=== PATIENT | female | born 1955 | race Caucasian/White ===

== ENCOUNTER 2018-05-17 07:47 | Emergency (ER) | payer BC, SELFPAY ==
[2018-05-17 08:22] VITALS: BP 182/94; PULSE 65; RESP 20; TEMP 36.6; O2SAT 100; BMI 53.0
--- NOTE | 2018-05-17 08:37 | DI.RAD.S_ITS ---
PROCEDURE: XR CHEST 1V INDICATIONS: Chest Pain TECHNIQUE: One view of the chest was acquired. COMPARISON: [facility], , CHEST 1 VIEW, 03/04/2016, 19:05. FINDINGS: Surgical changes and devices: Left chest wall clips and partial cervical fixation plates. Lungs and pleura: No pleural effusions or pneumothorax. Mild increased pulmonary vascularity. Mediastinum: Mediastinal contours appear normal. Heart size is normal. Bones and chest wall: No suspicious bony lesions. Overlying soft tissues appear unremarkable. IMPRESSION: Mild edema. Dictated by: Olinda Ramirez M.D. on 05/17/2018 at 9:32 Approved by: Olinda Ramirez M.D. on 05/17/2018 at 9:34
--- NOTE | 2018-05-17 08:52 | ED.BACK ---
HPI - Back Pain/Injury General Chief Complaint: Extremity Problem,Nontraumatic Stated Complaint: achey shoulders Time Seen by Provider: 05/17/18 08:20 Source: patient and family Mode of arrival: ambulatory Limitations: no limitations History of Present Illness HPI Narrative: 63-year-old nonsmoking female presents with a chief complaint of sharp and stabbing pain between her shoulder blades in her back that started this morning at 2:30 a.m. when she awoke abruptly to answer phone. She states her pain is worse when she moves her left upper extremity and denies any radiation. She denies any cardiac equivalent such as dizziness, weakness or lightheadedness. She has no chest pain or shortness of breath. She denies any recent travel or history of blood clots. MD Complaint: back pain Onset (ago): hour(s) Duration: constant Similar Symptoms Previously: No Location: thoracic spine Severity: mild Quality: burning and sharp Radiation: none Relieving factors: none Exacerbating factors: movement Associated symptoms: denies other symptoms Related Data Home Medications Medication Instructions Recorded Confirmed [ESTRAGEN] #0 05/21/16 Previous Rx's Medication Instructions Recorded hydrocodone-acetaminophen [[place]] 1 tab PO Q6HP PRN #10 tab 03/04/16 HYDROCORTISONE (Hydrocortisone) 1 guillermo TP BID #28.4 gm 05/21/16 Allergies Allergy/AdvReac Type Severity Reaction Status Date / Time codeine [CODEINE] Allergy Unknown Hives Verified 05/17/18 08:28 ketorolac [From TORADOL] Allergy Unknown Nausea Verified 05/17/18 08:28 Review of Systems Review of Systems All systems reviewed & are unremarkable except as noted in HPI and below Constitutional Denies chills, Denies fever(s), Denies lethargy and Denies weakness Eyes Denies change in vision, Denies eye discharge, Denies irritation and Denies loss of vision ENT Ears, Nose, Mouth, and Throat: Denies change in voice, Denies neck pain and Denies sore throat Cardiovascular Denies chest pain, Denies irregular heart rhythm, Denies lightheadedness, Denies palpitations, Denies dyspnea, Denies dyspnea on exertion and Denies orthopnea Respiratory Denies cough, Denies dyspnea, Denies dyspnea on exertion and Denies wheezing Gastrointestinal Gastrointestinal: Denies abdominal pain, Denies change in bowel habits, Denies diarrhea, Denies nausea and Denies vomiting Genitourinary Denies hematuria, Denies flank pain, Denies urinary incontinence and Denies urinary urgency Musculoskeletal Reports back pain and Denies neck pain Integumentary/Breasts Denies pruritus, Denies erythema, Denies rash and Denies wounds Neurologic Denies confusion, Denies loss of vision and Denies weakness Psychiatric Denies anxiety, Denies confusion, Denies depression, Denies homicidal ideation and Denies suicidal ideation Endocrine Denies palpitations Hematologic/Lymphatic Denies easy bruising Allergic/Immunologic Denies wheezing [facility] Social History Smoking Status: Current every day smoker Exam Narrative Exam Narrative: GENERAL: This is a well-nourished, well-developed patient, in mild distress. HEAD: Atraumatic. Normocephalic. No temporal or scalp tenderness. EYES: Pupils equal round and reactive. Extraocular motions intact. No scleral icterus. No injection or drainage. ENT: Nose without bleeding, purulent drainage or septal hematoma. Throat without erythema, tonsillar hypertrophy or exudate. Uvula midline. Airway patent. NECK: Trachea midline. No JVD or lymphadenopathy. Supple, nontender, no meningeal signs. CARDIOVASCULAR: Regular rate and rhythm without murmurs, gallops, or rubs. RESPIRATORY: Clear to auscultation. Breath sounds equal bilaterally. No wheezes, rales, or rhonchi. GASTROINTESTINAL: Abdomen soft, non-tender, nondistended. No hepato-splenomegaly, or palpable masses. No guarding. EXTREMITIES: No clubbing, cyanosis, or edema. No joint tenderness, effusion, or edema noted. BACK: Tenderness to the paraspinals just left to mid thoracic spine and medial to scapula. This pain is reproducible to palpation and motion of the left upper extremity. This is the pain that brought the patient in NEURO: AOx3. SKIN: No rash or erythema. Initial Vital Signs Initial Vital Signs: Vital Signs Temperature 97.8 F 05/17/18 08:22 Pulse Rate 65 05/17/18 08:22 Respiratory Rate 20 05/17/18 08:22 Blood Pressure 182/94 H 05/17/18 08:22 Pulse Oximetry 100 05/17/18 08:22 Course Orders Ordered: Discontinued Medications Aspirin (Aspirin Chew) 324 mg PO NOW ONE Stop: 05/17/18 08:37 Last Admin: 05/17/18 09:11 Dose: 324 mg Sodium Chloride (Normal Saline 0.9%) 1,000 mls @ 150 mls/hr IV CONT CLARISA Last Infusion: 05/17/18 10:24 Dose: 0 mls/hr Admin: 05/17/18 09:12 Dose: 150 mls/hr Vital Signs - 8 hr 05/17/18 08:22 Temperature 97.8 F Pulse Rate 65 Respiratory Rate 20 Blood Pressure 182/94 H Pulse Oximetry 100 MDM - Back Pain/Injury Medical Records Attestation: I reviewed the patient's medical records. Lab Data Attestation: I reviewed the patient's lab results. Result diagrams: 05/17/18 08:58 05/17/18 08:58 Lab Results 05/17/18 05/17/18 Range/Units 08:58 08:58 WBC 5.0 (4.5-11.0) X10^3/uL RBC 4.54 (4.0-5.2) X10^6/uL Hgb 13.4 (12.0-16.0) g/dL Hct 40.0 (36-46) % MCV 88.1 (80-100) fL MCH 29.5 (26-34) PG MCHC 33.5 (30-36) % RDW 13.7 (11.6-14.8) % Plt Count 309 (150-400) X10^3/uL Neut % (Auto) 66.4 (50-75) % Lymph % (Auto) 22.7 L (25-40) % [place] % (Auto) 8.1 (3-14) % Eos % (Auto) 2.4 (2-4) % Baso % (Auto) 0.4 (0-2) % Neut # (Auto) 3300 (5776-5032) /uL Sodium 142 (137-145) mmol/L Potassium 3.7 (3.4-5.1) mmol/L Chloride 103 (98-107) mmol/L Carbon Dioxide 26 (22-32) mmol/L BUN 12 (7-17) mg/dL Creatinine 0.60 (0.52-1.04) mg/dL Estimated GFR > 60.0 (>60) mL/min BUN/Creatinine Ratio 20.0 (6-22) Glucose 96 (80-110) mg/dL Calcium 9.6 (8.4-10.2) mg/dL Total Bilirubin 0.4 (0.2-1.3) mg/dL AST 34 (14-36) IU/L ALT 59 H (9-52) IU/L Alkaline Phosphatase 134 H (38-126) U/L Total Creatine Kinase 86 (30-135) U/L CK-MB (CK-2) TNP CK-MB (CK-2) Rel Index TNP Troponin I < 0.012 (0.01-0.034) ng/mL Total Protein 7.7 (6.3-8.2) g/dL Albumin 4.6 (3.5-5.0) g/dL Globulin 3.1 (1.7-4.1) g/dL Albumin/Globulin Ratio 1.5 (1.0-2.8) Lipase 162 (23-300) U/L Imaging Data Chest x-ray: Radiologist's impression: [address] [address] XRay Report Signed Patient: José Miguel Tierney DMR#: [id number] : 5Acct:[id number] Age/Sex: 63 / FDate of Service: 05/17/18 Loc: ED Accession Number: [id number] Procedure: XR chest 1V Ordering Provider: David Ambrose D.O. PROCEDURE: XR CHEST 1V INDICATIONS: Chest Pain TECHNIQUE: One view of the chest was acquired. COMPARISON: [facility], CHEST 1 VIEW, 03/04/2016, 19:05. FINDINGS: Surgical changes and devices: Left chest wall clips and partial cervical fixation plates. Lungs and pleura: No pleural effusions or pneumothorax. Mild increased pulmonary vascularity. Mediastinum: Mediastinal contours appear normal. Heart size is normal. Bones and chest wall: No suspicious bony lesions. Overlying soft tissues appear unremarkable. IMPRESSION: Mild edema. Dictated by: Olinda Ramirez M.D. on 05/17/2018 at 9:32 Approved by: Olinda Ramirez M.D. on 05/17/2018 at 9:34 ECG Data Attestation: I personally reviewed and interpreted this ECG as follows: Prior ECG tracings: not available for review Interpretation: EKG is normal sinus rhythm and free of any signs of ischemia or ectopy. Discharge Plan Departure Patient Disposition: Home Clinical Impression: Acute bilateral thoracic back pain Discharge Date/Time: 05/17/18 10:35 Interventions: ED Discharge Assessment Last Done: 05/17/18 10:30 Instructions: DI for Thoracic Back Pain Activity Restrictions/Additional Instructions: *You have been diagnosed with [ acute thoracic back strain ] *What to do: *Take medications as directed *Follow up with your primary care provider in 2-3 days, call for an appointment. Let them know you were seen in the Emergency Department and that we ask that you be seen in follow up *Return to ER if you should have any new, worsening or concerning symptoms Prescriptions: No Action hydrocodone-acetaminophen [[place]] 5 MG/325 MG tablet 1 tab PO Q6HP PRNQty: 10 RF: 0 [ESTRAGEN] Qty: 0 RF: 0 HYDROCORTISONE (Hydrocortisone) 1 guillermo TP BID Qty: 28.4 RF: 0 Referrals: Patria Aiken DO [Primary Care Provider] -
[2018-05-17 09:07] LABS: Add Manual Diff / Slide Review NO; Basophils Percent Auto 0.4 % (0-2); Eosinophils Percent Auto 2.4 % (2-4); Hemoglobin 13.4 g/dL (12.0-16.0); Lymphocytes Percent Auto 22.7 % (25-40); Mean Corpuscular HGB Conc 33.5 % (30-36); Mean Corpuscular Hemoglobin 29.5 PG (26-34); Mean Corpuscular Volume 88.1 fL (80-100); Monocytes Percent Auto 8.1 % (3-14); Neutrophils Absolute Auto 3300 /uL (3000-5900); Neutrophils Percent Auto 66.4 % (50-75); Platelet Count 309 X10^3/uL (150-400); Red Blood Cell Count 4.54 X10^6/uL (4.0-5.2); Red Cell Distribution Width 13.7 % (11.6-14.8)
[2018-05-17] MEDS: ASPIRIN 81 MG TAB 324 MG PO (09:11)
[2018-05-17] MEDS: SODIUM CHLORIDE 0.9% 1,000 ML 150 ML IV (09:12)
[2018-05-17 09:19] LABS: Alanine Aminotransferase 59 IU/L (9-52); Albumin 4.6 g/dL (3.5-5.0); Albumin Globulin Ratio 1.5 (1.0-2.8); Alkaline Phosphatase 134 U/L (38-126); Aspartate Aminotransferase 34 IU/L (14-36); Bilirubin Total 0.4 mg/dL (0.2-1.3); Blood Urea Nitrogen 12 mg/dL (7-17); Calcium 9.6 mg/dL (8.4-10.2); Carbon Dioxide 26 mmol/L (22-32); Chloride 103 mmol/L (98-107); Creatine Kinase 86 U/L (30-135); Estimated Glomerular Filt Rate > 60.0 mL/min (>60); Globulin 3.1 g/dL (1.7-4.1); Glucose 96 mg/dL (80-110); HEMOLYSIS < 15 (0-50); Lipase 162 U/L (23-300); Potassium 3.7 mmol/L (3.4-5.1); Sodium 142 mmol/L (137-145); Total Protein 7.7 g/dL (6.3-8.2)
--- NOTE | 2018-05-17 09:28 | ED_ITS ---
HPI - Back Pain/Injury General Chief Complaint: Extremity Problem,Nontraumatic Stated Complaint: achey shoulders Time Seen by Provider: 05/17/18 08:20 Source: patient and family Mode of arrival: ambulatory Limitations: no limitations History of Present Illness HPI Narrative: 63-year-old nonsmoking female presents with a chief complaint of sharp and stabbing pain between her shoulder blades in her back that started this morning at 2:30 a.m. when she awoke abruptly to answer phone. She states her pain is worse when she moves her left upper extremity and denies any radiation. She denies any cardiac equivalent such as dizziness, weakness or lightheadedness. She has no chest pain or shortness of breath. She denies any recent travel or history of blood clots. MD Complaint: back pain Onset (ago): hour(s) Duration: constant Similar Symptoms Previously: No Location: thoracic spine Severity: mild Quality: burning and sharp Radiation: none Relieving factors: none Exacerbating factors: movement Associated symptoms: denies other symptoms Related Data Home Medications Medication Instructions Recorded Confirmed [ESTRAGEN] #0 05/21/16 Previous Rx's Medication Instructions Recorded hydrocodone-acetaminophen [[place]] 1 tab PO Q6HP PRN #10 tab 03/04/16 HYDROCORTISONE (Hydrocortisone) 1 guillermo TP BID #28.4 gm 05/21/16 Allergies Allergy/AdvReac Type Severity Reaction Status Date / Time codeine [CODEINE] Allergy Unknown Hives Verified 05/17/18 08:28 ketorolac [From TORADOL] Allergy Unknown Nausea Verified 05/17/18 08:28 Review of Systems Review of Systems All systems reviewed & are unremarkable except as noted in HPI and below Constitutional Denies chills, Denies fever(s), Denies lethargy and Denies weakness Eyes Denies change in vision, Denies eye discharge, Denies irritation and Denies loss of vision ENT Ears, Nose, Mouth, and Throat: Denies change in voice, Denies neck pain and Denies sore throat Cardiovascular Denies chest pain, Denies irregular heart rhythm, Denies lightheadedness, Denies palpitations, Denies dyspnea, Denies dyspnea on exertion and Denies orthopnea Respiratory Denies cough, Denies dyspnea, Denies dyspnea on exertion and Denies wheezing Gastrointestinal Gastrointestinal: Denies abdominal pain, Denies change in bowel habits, Denies diarrhea, Denies nausea and Denies vomiting Genitourinary Denies hematuria, Denies flank pain, Denies urinary incontinence and Denies urinary urgency Musculoskeletal Reports back pain and Denies neck pain Integumentary/Breasts Denies pruritus, Denies erythema, Denies rash and Denies wounds Neurologic Denies confusion, Denies loss of vision and Denies weakness Psychiatric Denies anxiety, Denies confusion, Denies depression, Denies homicidal ideation and Denies suicidal ideation Endocrine Denies palpitations Hematologic/Lymphatic Denies easy bruising Allergic/Immunologic Denies wheezing [facility] Social History Smoking Status: Current every day smoker Exam Narrative Exam Narrative: GENERAL: This is a well-nourished, well-developed patient, in mild distress. HEAD: Atraumatic. Normocephalic. No temporal or scalp tenderness. EYES: Pupils equal round and reactive. Extraocular motions intact. No scleral icterus. No injection or drainage. ENT: Nose without bleeding, purulent drainage or septal hematoma. Throat without erythema, tonsillar hypertrophy or exudate. Uvula midline. Airway patent. NECK: Trachea midline. No JVD or lymphadenopathy. Supple, nontender, no meningeal signs. CARDIOVASCULAR: Regular rate and rhythm without murmurs, gallops, or rubs. RESPIRATORY: Clear to auscultation. Breath sounds equal bilaterally. No wheezes , rales, or rhonchi. GASTROINTESTINAL: Abdomen soft, non-tender, nondistended. No hepato-splenomegaly , or palpable masses. No guarding. EXTREMITIES: No clubbing, cyanosis, or edema. No joint tenderness, effusion, or edema noted. BACK: Tenderness to the paraspinals just left to mid thoracic spine and medial to scapula. This pain is reproducible to palpation and motion of the left upper extremity. This is the pain that brought the patient in NEURO: AOx3. SKIN: No rash or erythema. Initial Vital Signs Initial Vital Signs: Vital Signs Temperature 97.8 F 05/17/18 08:22 Pulse Rate 65 05/17/18 08:22 Respiratory Rate 20 05/17/18 08:22 Blood Pressure 182/94 H 05/17/18 08:22 Pulse Oximetry 100 05/17/18 08:22 Course Orders Ordered: Discontinued Medications Aspirin (Aspirin Chew) 324 mg PO NOW ONE Stop: 05/17/18 08:37 Last Admin: 05/17/18 09:11 Dose: 324 mg Sodium Chloride (Normal Saline 0.9%) 1,000 mls @ 150 mls/hr IV CONT CLARISA Last Infusion: 05/17/18 10:24 Dose: 0 mls/hr Admin: 05/17/18 09:12 Dose: 150 mls/hr Vital Signs - 8 hr 05/17/18 08:22 Temperature 97.8 F Pulse Rate 65 Respiratory Rate 20 Blood Pressure 182/94 H Pulse Oximetry 100 MDM - Back Pain/Injury Medical Records Attestation: I reviewed the patient's medical records. Lab Data Attestation: I reviewed the patient's lab results. Result diagrams: 05/17/18 08:58 05/17/18 08:58 Lab Results 05/17/18 05/17/18 Range/Units 08:58 08:58 WBC 5.0 (4.5-11.0) X10^3/uL RBC 4.54 (4.0-5.2) X10^6/uL Hgb 13.4 (12.0-16.0) g/dL Hct 40.0 (36-46) % MCV 88.1 (80-100) fL MCH 29.5 (26-34) PG MCHC 33.5 (30-36) % RDW 13.7 (11.6-14.8) % Plt Count 309 (150-400) X10^3/uL Neut % (Auto) 66.4 (50-75) % Lymph % (Auto) 22.7 L (25-40) % [place] % (Auto) 8.1 (3-14) % Eos % (Auto) 2.4 (2-4) % Baso % (Auto) 0.4 (0-2) % Neut # (Auto) 3300 (5638-1794) /uL Sodium 142 (137-145) mmol/L Potassium 3.7 (3.4-5.1) mmol/L Chloride 103 (98-107) mmol/L Carbon Dioxide 26 (22-32) mmol/L BUN 12 (7-17) mg/dL Creatinine 0.60 (0.52-1.04) mg/dL Estimated GFR > 60.0 (>60) mL/min BUN/Creatinine Ratio 20.0 (6-22) Glucose 96 (80-110) mg/dL Calcium 9.6 (8.4-10.2) mg/dL Total Bilirubin 0.4 (0.2-1.3) mg/dL AST 34 (14-36) IU/L ALT 59 H (9-52) IU/L Alkaline Phosphatase 134 H (38-126) U/L Total Creatine Kinase 86 (30-135) U/L CK-MB (CK-2) TNP CK-MB (CK-2) Rel Index TNP Troponin I < 0.012 (0.01-0.034) ng/mL Total Protein 7.7 (6.3-8.2) g/dL Albumin 4.6 (3.5-5.0) g/dL Globulin 3.1 (1.7-4.1) g/dL Albumin/Globulin Ratio 1.5 (1.0-2.8) Lipase 162 (23-300) U/L Imaging Data Chest x-ray: Radiologist's impression: [address] [address] XRay Report Signed Patient: José Miguel Tierney DMR#: [id number] : 5Acct:[id number] Age/Sex: 63 / FDate of Service: 05/17/18 Loc: ED Accession Number: [id number] Procedure: XR chest 1V Ordering Provider: David Ambrose D.O. PROCEDURE: XR CHEST 1V INDICATIONS: Chest Pain TECHNIQUE: One view of the chest was acquired. COMPARISON: [facility], CHEST 1 VIEW, 03/04/2016, 19:05. FINDINGS: Surgical changes and devices: Left chest wall clips and partial cervical fixation plates. Lungs and pleura: No pleural effusions or pneumothorax. Mild increased pulmonary vascularity. Mediastinum: Mediastinal contours appear normal. Heart size is normal. Bones and chest wall: No suspicious bony lesions. Overlying soft tissues appear unremarkable. IMPRESSION: Mild edema. Dictated by: Olinda Ramirez M.D. on 05/17/2018 at 9:32 Approved by: Olinda Ramirez M.D. on 05/17/2018 at 9:34 ECG Data Attestation: I personally reviewed and interpreted this ECG as follows: Prior ECG tracings: not available for review Interpretation: EKG is normal sinus rhythm and free of any signs of ischemia or ectopy. Discharge Plan Departure Patient Disposition: Home Clinical Impression: Acute bilateral thoracic back pain Discharge Date/Time: 05/17/18 10:35 Interventions: ED Discharge Assessment Last Done: 05/17/18 10:30 Instructions: DI for Thoracic Back Pain Activity Restrictions/Additional Instructions: *You have been diagnosed with [ acute thoracic back strain ] *What to do: *Take medications as directed *Follow up with your primary care provider in 2-3 days, call for an appointment. Let them know you were seen in the Emergency Department and that we ask that you be seen in follow up *Return to ER if you should have any new, worsening or concerning symptoms Prescriptions: No Action hydrocodone-acetaminophen [[place]] 5 MG/325 MG tablet 1 tab PO Q6HP PRNQty: 10 RF: 0 [ESTRAGEN] Qty: 0 RF: 0 HYDROCORTISONE (Hydrocortisone) 1 guillermo TP BID Qty: 28.4 RF: 0 Referrals: Patria Aiken DO [Primary Care Provider] -
[2018-05-17 09:32] LABS: Troponin I < 0.012 ng/mL (0.01-0.034)
[2018-05-17 10:30] VITALS: BP 182/89; PULSE 75; RESP 20; TEMP 36.1; O2SAT 98
== END 2018-05-17 10:35 | disposition home or self-care (01) ==
PROVIDERS: Emergency Provider Emergency Medicine; PCP Family Medicine
DX: M54.6 Pain in thoracic spine (principal)
CPT/HCPCS: 36591; 71045; 80053; 82550; 83690; 84484; 85025; 93005; 93041; 96360; 99283; 99285

== ENCOUNTER → 2018-07-24 08:40 | Outpatient (CLI) | payer BC, SELFPAY ==
--- NOTE | 2018-07-24 | DI.NM.S_ITS ---
PROCEDURE: NM MICHAEL PERF SPECT R&S PHARM Rest and pharmacological stress myocardial perfusion SPECT with gated imaging and ejection fraction RADIOPHARMACEUTICAL: 26.7 mCi Tc-99m tetrafosmin IV at rest and 26.2 mCi Tc-99m tetrafosmin IV at peak effect of pharmacological stress. [id number] was performed. INDICATIONS: CHEST PAIN TECHNIQUE: Radiopharmaceutical was injected at peak stress test, and also at rest. SPECT images were obtained. SPECT myocardial perfusion images were displayed in short axis, horizontal long axis, and vertical long axis views. Gated images were reviewed using [employer] software. COMPARISON: None. CARDIAC STRESS: A pharmacologic stress test was performed under the supervision of an attending staff, using an infusion of lexiscan 0.4mg IV X1. Hemodynamic data: There is normal heart rate response to pharmacologic stress. Hypertension present during the study with BP 180/106mmHg at rest. Symptoms: The patient denied anginal chest pain. Aminophylline: none EKG: No diagnostic changes of ischemia; no ectopy. FINDINGS: Raw data: There is good myocardial uptake of radiotracer. No significant motion artifacts. Qvxp-uw-evbep ratio is 0.36 (normal is less than 0.38 for tetrafosmin tracer). Left ventricle function: Gated images demonstrate normal left ventricular wall thickening. No segmental wall motion abnormalities. No transient ischemic dilation; TID is 0.77 (normal less than 1.3). Left ventricle resting end diastolic volume is 99 mL. Left ventricle stress ejection fraction is 86%; normal range is above 45%. Myocardial perfusion: There is moderately severe fixed defect in the anterior wall that improves significantly with prone imaging suggesting breast attenuation artifact but prior non-transmural infarction can't be definitely excluded. No ischemia present. IMPRESSION: Low risk, probably normal pharmaceutical nuclear stress test. Hypertension present during the study. 1) Probably normal nuclear perfusion images. There is moderately severe fixed defect in the anterior wall that improves significantly with prone imaging suggesting breast attenuation artifact but prior non-transmural infarction can't be definitely excluded. No ischemia present. 2) Normal left ventricular size, wall motion, and systolic function (post stress EF 86%). 3) No ECG evidence of ischemia. 4) No angina during the study. 5) Hypertension present throughout the study (BP 180/106mmHg at rest). 6) No prior nuclear stress test available for comparison. Dictated by: Dionne Aguirre MD on 07/25/2018 at 17:18 Approved by: Dionne Aguirre MD on 07/25/2018 at 17:23
--- NOTE | 2018-07-24 09:35 | P.PCN_ITS ---
Cardiac Stress Test Report Referral & Results Date Patient Seen: 07/24/18 Requesting provider: Dieter Amaro Indication: Chest pain Rest ECG: Unremarkable Procedure Note: After both written and verbal informed consent the patient had an IV started by the diagnostic imaging RN and then was hooked up to the treadmill monitoring system. The patient was placed on the treadmill at 1 mile an hour with no elevation and was then injected with the Tiffanie scan material. The Cardiolite was then immediately administered. The patient spent an additional 2-3 minutes on the treadmill before being returned to the [facility] in the supine position. The patient had a normal response to all infused materials. Patient was hypertensive throughout both before the test was started as well as afterwards Patient did reach heart rate target with minimal exercise described above. No ECG changes were identified any time Impression: See perfusion imaging for further details Hypertension Please note: Actual ECG tracings can be found in the PACS system.
== END ==
PROVIDERS: PCP Family Medicine; Visit Provider Internal Medicine Cardiovascular Disease
DX: R07.9 Chest pain, unspecified (principal); I10 Essential (primary) hypertension
CPT/HCPCS: 78452; 93016; 93017; 93018; A9502; J2785

== ENCOUNTER 2018-10-27 01:38 | Inpatient (IN) | payer BC, SELFPAY ==
[2018-10-27] VITALS (22 sets, daily range): BP systolic 127–198; BP diastolic 74–104; PULSE 59–89; RESP 13–22; TEMP 36–36.9; O2SAT 92–100; BMI 38.4
--- NOTE | 2018-10-27 01:45 | ED.ABDPAIN ---
HPI - Abdominal Pain General Chief Complaint: Abdominal Pain Stated Complaint: stomach ache/constipation/pain 04/17 Time Seen by Provider: 10/27/18 01:44 Source: patient Mode of arrival: ambulatory Limitations: no limitations History of Present Illness HPI narrative: Patient is a 63-year-old female here for evaluation of which he thinks is constipation. She states she was at her normal state of health last evening. Her last meal was yesterday afternoon. She states she did have a bowel movement that was normal for her. After she got off work she started to have abdominal pain. No vomiting. she did have another bowel movement after this that she states was somewhat looser than the 1st bowel movement however did not change any of her abdominal pain. she states she has had symptoms like this in the past where she received an enema that seemed to improve her symptoms that is why she thought she was constipated. Denies any urinary symptoms or vaginal bleeding. Has had a hysterectomy in the past but no other abdominal surgeries. She states she is drinking tea at 2200 hours when her symptoms started to worsen. Related Data Home Medications Medication Instructions Recorded Confirmed [ESTRAGEN] #0 05/21/16 Previous Rx's Medication Instructions Recorded hydrocodone-acetaminophen [[place]] 1 tab PO Q6HP PRN #10 tab 03/04/16 HYDROCORTISONE (Hydrocortisone) 1 guillermo TP BID #28.4 gm 05/21/16 Allergies Allergy/AdvReac Type Severity Reaction Status Date / Time codeine [CODEINE] Allergy Unknown Hives Verified 05/17/18 08:28 ketorolac [From TORADOL] Allergy Unknown Nausea Verified 05/17/18 08:28 Review of Systems Constitutional Denies fever(s) and Denies headache(s) ENT Ears, Nose, Mouth, and Throat: Denies headache(s) Cardiovascular Denies chest pain and Denies dyspnea Respiratory Denies dyspnea Gastrointestinal Gastrointestinal: Reports abdominal pain, Reports change in stool character, Reports cramping, Denies nausea and Denies vomiting Genitourinary Denies dysuria Musculoskeletal Denies myalgias and Denies arthralgias Integumentary/Breasts Denies rash Neurologic Denies headache(s) Hematologic/Lymphatic Denies easy bleeding and Denies easy bruising Allergic/Immunologic Denies urticaria REPLACED BY [facility] Medical History (Updated 10/27/18 @ 03:42 by Gadiel Biggs DO) H/O: hysterectomy (Acute) Healthy adult (Acute) Social History Smoking Status: Current every day smoker Social History Smoking Status: Current every day smoker Exam Initial Vital Signs Initial Vital Signs: Vital Signs Temperature 98.4 F 10/27/18 01:46 Pulse Rate 83 10/27/18 01:46 Respiratory Rate 16 10/27/18 01:46 Blood Pressure 198/95 H 10/27/18 01:46 Pulse Oximetry 100 10/27/18 01:46 Const General: cooperative, comfortable, well developed, well groomed and No acute distress Orientation: alert, awake and oriented x3 HENMT Head: normal to inspection and normocephalic Resp Effort & Inspection: normal respiratory effort Auscultation: clear to auscultation bilaterally Cardio Rate: regular rate Rhythm: regular rhythm Pulses: radial pulses present GI Inspection: non-distended Palpation: soft, No firm, No guarding and tender (Right-sided abdomen without rebound or guarding) Skin Lesions: no lesions Rashes: no rashes Neuro General: alert, awake and oriented x3 Cognition: normal cognition Speech: speech normal Extrem General: normal to inspection and capillary refill normal Psych Appearance: grossly normal and well kempt Scores GCS [place] coma scale eye opening: Spontaneous [place] coma scale verbal response: Orientated [place] coma scale motor response: Obey commands [place] coma scale total score: 15 Course Orders Ordered: ED Orders 10/27/18 01:54 CT abdomen pelvis w con Stat 10/27/18 02:00 Complete Blood Count AUTO DIFF Stat Comprehensive Metabolic Panel Stat Lactate (Lactic Acid) Stat Lipase Stat Discontinued Medications Sodium Chloride (Normal Saline 0.9%) 1,000 mls @ 1,000 mls/hr IV BOLUS ONE Stop: 10/27/18 02:53 Last Admin: 10/27/18 03:08 Dose: 1,000 mls/hr Vital Signs - 8 hr 10/27/18 01:46 10/27/18 03:25 Temperature 98.4 F Pulse Rate 83 88 Respiratory Rate 16 14 Blood Pressure 198/95 H Blood Pressure [Right Arm] 154/74 H Pulse Oximetry 100 92 MDM - Abdominal Pain Lab Data Attestation: I reviewed the patient's lab results. Result diagrams: 10/27/18 02:00 10/27/18 02:00 Lab Results 10/27/18 10/27/18 Range/Units 02:00 02:00 WBC 8.8 (4.5-11.0) X10^3/uL RBC 4.67 (4.0-5.2) X10^6/uL Hgb 13.6 (12.0-16.0) g/dL Hct 40.9 (36-46) % MCV 87.7 (80-100) fL MCH 29.2 (26-34) PG MCHC 33.3 (30-36) % RDW 13.5 (11.6-14.8) % Plt Count 347 (150-400) X10^3/uL Neut % (Auto) 76.4 H (50-75) % Lymph % (Auto) 15.5 L (25-40) % [place] % (Auto) 6.5 (3-14) % Eos % (Auto) 1.3 L (2-4) % Baso % (Auto) 0.3 (0-2) % Neut # (Auto) 6700 (7594-9278) /uL Lymph # (Auto) 1400 (2394-4490) /uL [place] # (Auto) 600 (0-900) /uL Eos # (Auto) 100 (0-450) /uL Baso # (Auto) 0 (0-100) /uL Sodium 142 (137-145) mmol/L Potassium 3.8 (3.4-5.1) mmol/L Chloride 105 (98-107) mmol/L Carbon Dioxide 25 (22-32) mmol/L BUN 13 (7-17) mg/dL Creatinine 0.70 (0.52-1.04) mg/dL Estimated GFR > 60.0 (>60) mL/min BUN/Creatinine Ratio 18.6 (6-22) Glucose 117 H (80-110) mg/dL Calcium 9.8 (8.4-10.2) mg/dL Total Bilirubin 0.2 (0.2-1.3) mg/dL AST 26 (14-36) IU/L ALT 37 (9-52) IU/L Alkaline Phosphatase 138 H (38-126) U/L Total Protein 8.2 (6.3-8.2) g/dL Albumin 4.9 (3.5-5.0) g/dL Globulin 3.3 (1.7-4.1) g/dL Albumin/Globulin Ratio 1.5 (1.0-2.8) Lipase 163 (23-300) U/L Imaging Data CT scan - abdomen: Radiologist's impression: High-grade mechanical small-bowel obstruction appears to be closed loop. Possible internal hernia. MDM Narrative Medical decision making narrative: Patient did have a relatively benign abdominal exam however was somewhat tender in the right abdomen. CT scan was obtained which resulted in what appears to be a small bowel obstruction. I discussed the case with Dr. sanabria with General surgery who will take the patient to the operating room. Discussed the CT scan findings with the patient and the possible need for surgery. Patient was NPO and has been NPO since 2200 hours lactate pending at time of admission. Discharge Plan Departure Patient Disposition: Admitted As Inpatient Clinical Impression: Small bowel obstruction
--- NOTE | 2018-10-27 01:54 | DI.CT.S_ITS ---
PROCEDURE: CT ABDOMEN PELVIS W CON INDICATIONS: Right-sided abdominal pain TECHNIQUE: After the administration of intravenous contrast, 5 mm thick sections acquired from the diaphragm to the symphysis. 5 mm coronal and sagittal reformats were acquired. For radiation dose reduction, the following was used: automated exposure control, adjustment of mA and/or kV according to patient size. COMPARISON: None. FINDINGS: Image quality: Excellent. ABDOMEN: Lung bases: Lung bases are clear. Heart size is normal. Solid organs: Liver is normal in size and enhancement. Gallbladder is unremarkable. Biliary system is non dilated. Pancreas enhances normally. Spleen is normal in size and enhancement. No adrenal nodules. Kidneys demonstrate normal size and enhancement, without hydronephrosis. Peritoneum and bowel: There is a distal small bowel obstruction which is concerning for a closed loop obstruction. There is fecalization of small bowel contents. Distal small bowel measures up to 4.3 cm. There is some bowel wall thickened present. No free air. Minimal ascites adjacent to the obstructed loops and in the pelvis. Nodes and vessels: No retroperitoneal or mesenteric adenopathy by size criteria. Aorta and inferior vena cava are normal in size. Miscellaneous: No ventral hernias. PELVIS: Genitourinary: Bladder wall thickness is normal. Uterus is surgically absent. Miscellaneous: No inguinal hernias or adenopathy. Bones: A benign-appearing cystic lesion of the right iliac crest is noted. Bilateral L5 pars defects with mild anterolisthesis of L5 on S1 and bilateral foraminal narrowing at L5-S1. No vertebral body compression fractures. IMPRESSION: 1. Closed-loop obstruction of the distal small bowel, with fecalization of small bowel contents and associated bowel wall thickening. 2. Bilateral L5 pars defects with mild anterolisthesis of L5 on S1. 3. Benign-appearing cystic lesion of the right iliac crest. Comment: Final report is concordant with preliminary interpretation of the Dictated by: Brian Duarte M.D. on 10/27/2018 at 8:20 Approved by: Brian Duarte M.D. on 10/27/2018 at 8:28
[2018-10-27 02:18] LABS: Add Manual Diff / Slide Review NO; Basophils Absolute Auto 0 /uL (0-100); Basophils Percent Auto 0.3 % (0-2); Eosinophils Absolute Auto 100 /uL (0-450); Eosinophils Percent Auto 1.3 % (2-4); Hematocrit 40.9 % (36-46); Hemoglobin 13.6 g/dL (12.0-16.0); Lymphocytes Absolute Auto 1400 /uL (1100-4500); Lymphocytes Percent Auto 15.5 % (25-40); Mean Corpuscular HGB Conc 33.3 % (30-36); Mean Corpuscular Hemoglobin 29.2 PG (26-34); Mean Corpuscular Volume 87.7 fL (80-100); Monocytes Absolute Auto 600 /uL (0-900); Monocytes Percent Auto 6.5 % (3-14); Neutrophils Absolute Auto 6700 /uL (1500-7000); Neutrophils Percent Auto 76.4 % (50-75); Platelet Count 347 X10^3/uL (150-400); Red Blood Cell Count 4.67 X10^6/uL (4.0-5.2); Red Cell Distribution Width 13.5 % (11.6-14.8); White Blood Cell Count 8.8 X10^3/uL (4.5-11.0)
[2018-10-27 02:24] LABS: Alanine Aminotransferase 37 IU/L (9-52); Albumin 4.9 g/dL (3.5-5.0); Albumin Globulin Ratio 1.5 (1.0-2.8); Alkaline Phosphatase 138 U/L (38-126); Aspartate Aminotransferase 26 IU/L (14-36); BUN Creatinine Ratio 18.6 (6-22); Bilirubin Total 0.2 mg/dL (0.2-1.3); Blood Urea Nitrogen 13 mg/dL (7-17); Calcium 9.8 mg/dL (8.4-10.2); Carbon Dioxide 25 mmol/L (22-32); Chloride 105 mmol/L (98-107); Estimated Glomerular Filt Rate > 60.0 mL/min (>60); Globulin 3.3 g/dL (1.7-4.1); Glucose 117 mg/dL (80-110); HEMOLYSIS < 15 (0-50); Lipase 163 U/L (23-300); Potassium 3.8 mmol/L (3.4-5.1); Sodium 142 mmol/L (137-145); Total Protein 8.2 g/dL (6.3-8.2)
[2018-10-27] MEDS: SODIUM CHLORIDE 0.9% 1,000 ML 1000 ML IV (03:08)
[2018-10-27 03:42] LABS: Lactate (Lactic Acid) 1.9 mmol/L (0.7-2.1)
--- NOTE | 2018-10-27 04:30 | PC.NURSE ---
report given to elkin caballero in surgery
--- NOTE | 2018-10-27 04:48 | PM.HP.1 ---
History of Present Illness Date Patient Seen: 10/27/18 Time Patient Seen: 04:18 Chief complaint: stomache ache/constipation/pain 04/17 Narrative: 63yo F with new onset R sided abd pain starting this evening. Had some nausea but primarily pain. This progressed over the evening despite an attempted enema which she had tried as she had previously been given this for a similar pain many years ago. Otherwise has not had similar pains or issues. Labs and vitals unremarkable in the ED but CT shows a closed loop SBO. Only abd surgery was a remote hysterectomy for benign disease. Her BP elevated to 190s/100s when I was in discussing the news and plan with her. On her request I spoke on the phone to her daughter, as well. Patient History Medical History H/O: hysterectomy (Acute) Healthy adult (Acute) Social History Smoking Status: Current every day smoker Family & Social History Tobacco & Substance use: Smoking Status Current every day smoker alcohol intake frequency 0-2 drinks per day Substance Use Type does not use Meds Home Medications Medication Instructions Recorded Confirmed Type hydrocodone-acetaminophen [[place]] 1 tab PO Q6HP PRN #10 tab 03/04/16 Rx HYDROCORTISONE (Hydrocortisone) 1 guillermo TP BID #28.4 gm 05/21/16 Rx [ESTRAGEN] #0 05/21/16 History Allergies Allergy/AdvReac Type Severity Reaction Status Date / Time codeine [CODEINE] Allergy Unknown Hives Verified 10/27/18 04:40 ketorolac [From TORADOL] Allergy Unknown Nausea Verified 10/27/18 04:40 Review of Systems Constitutional Constitutional: Reports as per HPI Exam Vital Signs (past 8 hours): - 10/27/18 01:46 10/27/18 03:25 10/27/18 04:45 Temperature 98.4 F Pulse Rate 83 88 88 Respiratory Rate 16 14 20 Blood Pressure 198/95 H 192/104 H Blood Pressure [Right Arm] 154/74 H Pulse Oximetry 100 92 96 Oxygen Delivery Method Room Air Narrative Exam Narrative: AAO, NAD, obese female EOMI, MMM, no scleral icterus unlabored RA soft, nd, mild ttp mid and right side MAEW visible skin dry and intact Objective Labs Result Diagrams: 10/27/18 02:00 10/27/18 02:00 Labs: Laboratory Results - last 24 hr 10/27/18 10/27/18 10/27/18 02:00 02:00 02:00 WBC 8.8 RBC 4.67 Hgb 13.6 Hct 40.9 MCV 87.7 MCH 29.2 MCHC 33.3 RDW 13.5 Plt Count 347 Neut % (Auto) 76.4 H Lymph % (Auto) 15.5 L [place] % (Auto) 6.5 Eos % (Auto) 1.3 L Baso % (Auto) 0.3 Neut # (Auto) 6700 Lymph # (Auto) 1400 [place] # (Auto) 600 Eos # (Auto) 100 Baso # (Auto) 0 Sodium 142 Potassium 3.8 Chloride 105 Carbon Dioxide 25 BUN 13 Creatinine 0.70 Estimated GFR > 60.0 BUN/Creatinine Ratio 18.6 Glucose 117 H Lactate 1.9 Calcium 9.8 Total Bilirubin 0.2 AST 26 ALT 37 Alkaline Phosphatase 138 H Total Protein 8.2 Albumin 4.9 Globulin 3.3 Albumin/Globulin Ratio 1.5 Lipase 163 Assessment & Plan Assessment & Plan narrative: - closed loop obstruction, will proceed emergently to the OR for ex lap and possible SBR --> all R/B/A discussed and pt wishes to proceed - admit after for pain control and diet advancement
--- NOTE | 2018-10-27 04:55 | P.HP_ITS ---
History of Present Illness Date Patient Seen: 10/27/18 Time Patient Seen: 04:18 Chief complaint: stomache ache/constipation/pain 04/17 Narrative: 63yo F with new onset R sided abd pain starting this evening. Had some nausea but primarily pain. This progressed over the evening despite an a ttempted enema which she had tried as she had previously been given this for a similar pain many years ago. Otherwise has not had similar pains or issues. Labs and vitals unremarkable in the ED but CT shows a closed loop SBO. Only abd surgery was a remote hysterectomy for benign disease. Her BP elevated to 190s/100s when I was in discussing the news and plan with her. On her request I spoke on the phone to her daughter, as well. Patient History Medical History H/O: hysterectomy (Acute) Healthy adult (Acute) Social History Smoking Status: Current every day smoker Family & Social History Tobacco & Substance use: Smoking Status Current every day smoker alcohol intake frequency 0-2 drinks per day Substance Use Type does not use Meds Home Medications Medication Instructions Recorded Confirmed Type hydrocodone-acetaminophen [[place]] 1 tab PO Q6HP PRN #10 tab 03/04/16 Rx HYDROCORTISONE (Hydrocortisone) 1 guillermo TP BID #28.4 gm 05/21/16 Rx [ESTRAGEN] #0 05/21/16 History Allergies Allergy/AdvReac Type Severity Reaction Status Date / Time codeine [CODEINE] Allergy Unknown Hives Verified 10/27/18 04:40 ketorolac [From TORADOL] Allergy Unknown Nausea Verified 10/27/18 04:40 Review of Systems Constitutional Constitutional: Reports as per HPI Exam Vital Signs (past 8 hours): - 10/27/18 01:46 10/27/18 03:25 10/27/18 04:45 Temperature 98.4 F Pulse Rate 83 88 88 Respiratory Rate 16 14 20 Blood Pressure 198/95 H 192/104 H Blood Pressure [Right Arm] 154/74 H Pulse Oximetry 100 92 96 Oxygen Delivery Method Room Air Narrative Exam Narrative: AAO, NAD, obese female EOMI, MMM, no scleral icterus unlabored RA soft, nd, mild ttp mid and right side MAEW visible skin dry and intact Objective Labs Result Diagrams: 10/27/18 02:00 10/27/18 02:00 Labs: Laboratory Results - last 24 hr 10/27/18 10/27/18 10/27/18 02:00 02:00 02:00 WBC 8.8 RBC 4.67 Hgb 13.6 Hct 40.9 MCV 87.7 MCH 29.2 MCHC 33.3 RDW 13.5 Plt Count 347 Neut % (Auto) 76.4 H Lymph % (Auto) 15.5 L [place] % (Auto) 6.5 Eos % (Auto) 1.3 L Baso % (Auto) 0.3 Neut # (Auto) 6700 Lymph # (Auto) 1400 [place] # (Auto) 600 Eos # (Auto) 100 Baso # (Auto) 0 Sodium 142 Potassium 3.8 Chloride 105 Carbon Dioxide 25 BUN 13 Creatinine 0.70 Estimated GFR > 60.0 BUN/Creatinine Ratio 18.6 Glucose 117 H Lactate 1.9 Calcium 9.8 Total Bilirubin 0.2 AST 26 ALT 37 Alkaline Phosphatase 138 H Total Protein 8.2 Albumin 4.9 Globulin 3.3 Albumin/Globulin Ratio 1.5 Lipase 163 Assessment & Plan Assessment & Plan narrative: - closed loop obstruction, will proceed emergently to the OR for ex lap and possible SBR --> all R/B/A discussed and pt wishes to proceed - admit after for pain control and diet advancement
[2018-10-27] MEDS: CEFAZOLIN 2 GM/100 ML FROZ.PIGGY IV (05:08)
--- NOTE | 2018-10-27 05:26 | SUR.OPER ---
Supine on padded OR bed, head on pillow, arms secured on padded arm boards at <90 degrees abduction, legs uncrossed, safety belt at thigh, tape over blanket over lower legs.
[2018-10-27] MEDS: LACTATED RINGERS 1,000 ML 42 ML IV (06:45)
[2018-10-27] MEDS: fentaNYL 100 MCG/2 ML INJ 50 MCG IV ×2 (07:02→07:13)
[2018-10-27] MEDS: HYDROMORPHONE 2 MG INJ 0.5 MG IV ×2 (07:07→07:16)
[2018-10-27] MEDS: ONDANSETRON 4 MG/2 ML INJ IV (07:12)
--- NOTE | 2018-10-27 07:44 | SUR.PHASEI ---
REPORT CALLED TO RIK HUSSEIN ON ACUTE CARE FLOOR. PT IN STABLE CONDITION, VSS. PT BEING TRANSFERRED TO ACUTE CARE FLOOR AT THIS TIME.
--- NOTE | 2018-10-27 07:54 | SUR.PHASEI ---
PT TRANSFERRED TO ACUTE CARE FLOOR IN STABLE CONDITION, VSS. BEDSIDE REPORT GIVEN TO RIK HUSSEIN. TRANSFERRED CARE OF PT TO RIK HUSSEIN AT THAT TIME.
[2018-10-27] MEDS: LACTATED RINGERS 1,000 ML 100 ML IV ×2 (08:27→18:46)
[2018-10-27] MEDS: ENOXAPARIN 40 MG/0.4 ML SYRINGE SUBCUT (10:16)
--- NOTE | 2018-10-27 11:06 | PC.NURSE ---
Addendum entered by Tana Carvalho R.N. 10/27/18 15:32: Pt has side effect to Ketorolac causing moderate to severe nausea and did not want to take. Dilaudid IV prn given at 1455 with good effect. Original Note: Addendum entered by Tana Carvalho R.N. 10/27/18 14:22: Update given by Dr. Cuellar around 1420, pt had approx 8 ice chips this shift, more alert now, able to hold a conversation with good historian with dates. Rates 6/10 pain to abd. Okay for pt to have small sips of water, broth, juice if tolerable by pt per Dr. Cuellar. Original Note: Addendum entered by Tana Carvalho R.N. 10/27/18 13:07: Patients health history reported from her daughter Skylar, stating pt had a neck fusion in 1993, vertigo, Left breast cancer diagnosed approx 5 years ago with lymph node dissection. Therefore not using left arm for BP, lab draws. Skylar also reported pt's current medication list over the phone. Updated home medication list with all except the following 2 medications of Gas-EX OTC PRN and Rashmi [place] Plus-sinus/cold/cough OTC PRN. Original Note: Day Shift- Report rec'd from CREATIVE WRITING ENGLISH PROFESSORRIK Ashton at 0738. Pt arrived to unit room 218 at 0750 via bed, lethargic, arousable, able to state name and birthday. Rates 9/10 pain to abd, then falls back asleep snoring in front of this typewriter assembler. FLACC score 0. Upon reassessment, pt states she was ok, states feeling tired, able to converse more but still closing eyes with verbal stimuli. Will continue to monitor. VSS, afebrile, remains on 2L NC. Bed tilt towards right. ABd vertical incision covered with large aquacel dressing CDI. Abd soft. Pt's daughter skylar at bedside and admission assessment completed by her information, and states pt lives with her. Pt given few ice chips. High fall risk precautions in place, bed alarm on, oriented to call light.
--- NOTE | 2018-10-27 13:25 | PM.OP.1 ---
Operative Date/Time/Diagnoses Date of procedure: 10/27/18 Time of procedure: 06:30 Pre-op diagnosis: Closed Loop Small Bowel Obstruction Post-op diagnosis: other (Adhesive disease) Procedure & Clinicians Procedure: 1. Exploratory Laparotomy 2. Lysis of Adhesions Same procedure as scheduled: Yes Indications: 63yo F presents with several hours of worsening abdominal pain. Workup in the ED included a CT A/P which showed an apparent closed loop small bowel obstruction with interloop fluid and a highly distended loop with fecalization. Abdomen is minimally distended but tender on exam. Given the concerning findings, patient is taken emergently to the OR after discussion of risks and benefits and signing of informed consent. Surgeon: Codi Tabler Click Yes if Unassisted: Yes Anesthesia Type: General Operative Notes Findings: Adhesive disease involving predominantly the omentum is noted. The small bowel is somewhat congested in appearance but no areas of constriction or obstruction noted. No free fluid is encountered. An incidental Meckel's is identified with no abnormal tissue. Closure Type: primary Specimen(s): none sent Estimated Blood Loss (mL): 30 Procedure in detail: The patient was taken to the operating room and placed on the operating table in supine position. General anesthesia was induced without complications other than significantly high blood pressure which quickly normalized. The abdomen was prepped and draped in the usual sterile fashion. Using a 10 blade scalpel, a midline incision was made. This was taken down through subcutaneous tissues and fascia using electrocautery. The peritoneum was identified and incised and this incision was extended for the length of the skin incision. Many small vessels exhibited hypertensive bleeding on the heels of patient's hypertensive episode on induction; these were addressed with electrocautery and did resolve after several minutes. We then proceeded with exploration. On entrance, minimally distended bowel loops protruded. No significant free fluid was noted. Much of the distal omentum was adherent to the abdominal wall in the lower midline and pelvis. This was carefully taken down with attention to the underlying bowel. A large Ramses retractor system was placed. Attention was turned to examining the bowel. The cecum was identified. The small bowel was examined in its entirety to the level of the ligament of Treitz. There was minimal congestion of the oliver, more prominent proximally, but no areas of constriction or obstruction. The entire small bowel appeared viable. No masses were palpated. The adhesions noted in the omentum did not involve the small bowel. An incidental Meckel's and a normal appendix were noted. The small bowel mesentery was free of injury or masses, as well. The small bowel was run in its entirety three times. The colon and anterior stomach were also viable, healthy, and unremarkable in appearance. At this point, the air and hydronic balancing technician radiologist who had read her CT was called. I had also reviewed it prior to the OR and noted the swirling omentum and significantly enlarged loop. I asked him to review it and note any other findings or possible different interpretation to explain what was seen on the CT as it did not translate to the benign operative findings. We were unable to identify other abnormalities or otherwise explain the discrepancy. At this point, as no concerning findings are noted after a thorough examination, the decision is made to close. As much free fluid as possible was suctioned from the abdomen. The fascia was then closed using looped #1 PDS suture in a running fashion. The subcutaneous tissues were irrigated and dried. The skin was reapproximated using skin katya. The abdomen was cleaned and dried and a sterile dressing was applied. The patient was awakened and taken to the PACU in stable condition. All counts were correct at the end of the procedure. Complications: other (hypertensive to 200s/100s during initial sedation and intubation with quick normalization once settled) Condition: stable Disposition: PACU Plan for aftercare: Admit to the hospital for post op care.
--- NOTE | 2018-10-27 14:29 | P.PN_ITS ---
Subjective Date Patient Seen: 10/27/18 Time Patient Seen: 14:26 Interval history: POD#0 s/p ex lap and ARPIT. Some nausea post op but largely controlled; pt was worried as she has a history of post-anesthesia nausea. Abdomen appropriately sore. Pt has been drowsy much of the morning, likely combination of no sleep overnight, general anesthesia, and post op meds. Has not gotten much in the way of narcotics given this. Has only had a few ice chips. Exam Vital Signs (past 8 hours): - 10/27/18 06:55 10/27/18 07:00 10/27/18 07:05 Temperature 98.0 F Pulse Rate 70 62 62 Respiratory Rate 22 22 22 Blood Pressure 187/95 H 176/90 H 176/90 H Pulse Oximetry 93 94 94 10/27/18 07:10 10/27/18 07:15 10/27/18 07:20 Temperature 96.8 F L Pulse Rate 68 61 70 Respiratory Rate 17 15 13 Blood Pressure 160/86 H 156/86 H 164/82 H Pulse Oximetry 94 96 94 10/27/18 07:25 10/27/18 07:35 10/27/18 07:40 Temperature 96.8 F L Pulse Rate 70 62 70 Respiratory Rate 13 16 14 Blood Pressure 145/88 H 148/87 H 145/80 H Pulse Oximetry 94 94 94 10/27/18 07:57 10/27/18 08:20 10/27/18 08:55 Temperature 97.2 F L 97.3 F L 97.3 F L Pulse Rate 62 59 L 71 Respiratory Rate 18 16 16 Blood Pressure 138/78 139/90 148/90 H Pulse Oximetry 93 95 95 10/27/18 09:20 10/27/18 09:50 10/27/18 11:12 Temperature 97.4 F L 97.6 F Pulse Rate 70 89 Respiratory Rate 16 16 Blood Pressure 144/86 H 159/90 H Pulse Oximetry 94 95 96 10/27/18 11:22 Temperature Pulse Rate Respiratory Rate Blood Pressure Pulse Oximetry 95 Oxygen Delivery Method Nasal Cannula Oxygen Flow Rate 2 Objective Labs Result Diagrams: 10/27/18 02:00 10/27/18 02:00 Labs: Laboratory Results - last 24 hr 10/27/18 10/27/18 10/27/18 02:00 02:00 02:00 WBC 8.8 RBC 4.67 Hgb 13.6 Hct 40.9 MCV 87.7 MCH 29.2 MCHC 33.3 RDW 13.5 Plt Count 347 Neut % (Auto) 76.4 H Lymph % (Auto) 15.5 L [place] % (Auto) 6.5 Eos % (Auto) 1.3 L Baso % (Auto) 0.3 Neut # (Auto) 6700 Lymph # (Auto) 1400 [place] # (Auto) 600 Eos # (Auto) 100 Baso # (Auto) 0 Sodium 142 Potassium 3.8 Chloride 105 Carbon Dioxide 25 BUN 13 Creatinine 0.70 Estimated GFR > 60.0 BUN/Creatinine Ratio 18.6 Glucose 117 H Lactate 1.9 Calcium 9.8 Total Bilirubin 0.2 AST 26 ALT 37 Alkaline Phosphatase 138 H Total Protein 8.2 Albumin 4.9 Globulin 3.3 Albumin/Globulin Ratio 1.5 Lipase 163 Assessment & Plan Post-op Postoperative Procedures Operation Date: 10/27/18 04:35 Actual Procedures Side Surgeon p Exploratory Laparotomy GEN, LYSIS OF ADHESIONS Not Applicable Codi Cuellar MD Postoperative status narrative: - prn anti-emetics - adding scheduled toradol, prn dilaudid pushes when awake and pain significant - ambulate/ OOB at least some this afternoon - ok for clear liquids, not ordering full tray Quality VTE Deep Vein Thrombosis/Pulmonary Embolism Present on Admission: No
[2018-10-27] MEDS: HYDROMORPHONE 0.5 MG INJ IV ×2 (14:52→19:16)
--- NOTE | 2018-10-27 15:00 | CM.DANOTE ---
Addendum entered by Donan York LPN 10/27/18 15:08: Pt just admitted today/10/27: 0350 Original Note: Discharge Planning/Care Management DCP: assessment: case received, EMR reviewed and discussed in Team Rounds: Pt is a 63 year old female who admitted to care of General Surgeon: . She was taken to surgery early to day for an exploratory laparotomy with ARPIT. Payer: [facility] out of [place]: admission status: INPT: confirmed by UR RIK Wheat. PCP: Patria Aiken. DCP team will be following up to meet pt and offer assist with d/c issues and options tomorrow when she is able to converse. Pt has a daughter Roz Doe: [facility] Discharge Assessment Start: 10/27/18 14:58 Freq: Status: Active Protocol: Document 10/27/18 14:59 ITV (Rec: 10/27/18 15:00 ITV [id number]) Discharge Planning Assessment Advance Directives? No Advance Directives on File No History Provided By Medical Record Prior Living Arrangements House Review Status In Process Next Review Type Continued Stay Review
--- NOTE | 2018-10-27 20:07 | PC.NURSE ---
Addendum entered by Cinthya Walters R.N. 10/27/18 21:28: Pt. arousable to voice, oriented. Continues to decline repositioning or IS teaching. Original Note: SHIFT [id number] Report received at bedside, care assumed. Pt. drowsy but arousable, oriented. Family at bedside. VSS, 2LNC with cont pulse ox. Abdomen soft, tender, no bowel tones yet. Midline incision demonstrates bloody drainage under the dressing, very slightly extended beyond outline marked at 1200. Patient recently received Dilaudid and reports adequate pain control. Repositioned from left to right early in shift; further repositioning declined at this time. Dr. Cuellar had written an order for Toradol; the patient refuses to take Toradol as it causes her nausea. Obtained an order to adminster Dilaudid q2H in case the previously ordered q4H is inadequate for pain control.
[2018-10-28] VITALS (9 sets, daily range): BP systolic 128–154; BP diastolic 73–92; PULSE 70–96; RESP 16–22; TEMP 35.9–37.6; O2SAT 88–98
[2018-10-28] MEDS: HYDROMORPHONE 0.5 MG INJ IV ×4 (00:45→15:40)
[2018-10-28] MEDS: LACTATED RINGERS 1,000 ML 100 ML IV ×2 (05:08→15:04)
[2018-10-28] MEDS: SODIUM CHLORIDE 0.9% FLUSH 10 ML IV ×2 (05:09→10:18)
[2018-10-28] MEDS: ENOXAPARIN 40 MG/0.4 ML SYRINGE SUBCUT (10:18)
--- NOTE | 2018-10-28 10:53 | PM.PN.1 ---
Subjective Date Patient Seen: 10/28/18 Time Patient Seen: 10:11 Interval history: Doing well, sore but nausea improved. Shayne sips of clears, no appetite or desire for more now. Only OOB minimally and is not coughing or deep breathing due to pain. Exam Vital Signs (past 8 hours): - 10/28/18 05:51 10/28/18 07:55 Temperature 98.1 F 98 F Pulse Rate 94 H 78 Respiratory Rate 16 16 Blood Pressure 128/79 132/73 Pulse Oximetry 94 98 Oxygen Delivery Method Nasal Cannula Oxygen Flow Rate 2 Narrative Exam Narrative: AAO, NAD, obese female EOMI, MMM unlabored RA soft, nd, appropriate ttp, inc dresses with some bloody drainage pooling in inf aspect of dressing MAEW Objective Labs Result Diagrams: 10/27/18 02:00 10/27/18 02:00 Assessment & Plan Assessment & Plan narrative: - pain control --> adding schedule Ibuprofen - clears as tolerating for now - ambulate, walk today - discussed importance of IS - SCDs, lovenox Quality VTE Deep Vein Thrombosis/Pulmonary Embolism Present on Admission: No
[2018-10-28] MEDS: IBUPROFEN 400 MG TABLET 800 MG PO ×2 (12:34→21:06)
--- NOTE | 2018-10-28 23:34 | PC.NURSE ---
[id number] Report received bedside, care assumed. Pt. up to chair at time of initial contact, back to bed shortly. A&O, VSS. C/o pain; treated with Dilaudid, reports relief. Tolerating sips of clear liquids. Boggy drainage to inferior portion of dressing. Dressing removed, incision approximated with katya, surrounding skin pink and healthy. Aquacell and border dressing applied.
[2018-10-29] MEDS: LACTATED RINGERS 1,000 ML 100 ML IV ×2 (02:21→11:58)
[2018-10-29 04:27] VITALS: BP 140/74; PULSE 73; RESP 19; TEMP 36.7; O2SAT 91
[2018-10-29] MEDS: IBUPROFEN 400 MG TABLET 800 MG PO ×3 (06:25→21:57)
[2018-10-29 08:03] VITALS: BP 153/77; PULSE 76; RESP 18; TEMP 36.7; O2SAT 94
[2018-10-29] MEDS: ENOXAPARIN 40 MG/0.4 ML SYRINGE SUBCUT (09:12)
[2018-10-29 09:28] LABS: BUN Creatinine Ratio 16.7 (6-22); Blood Urea Nitrogen 10 mg/dL (7-17); Calcium 8.6 mg/dL (8.4-10.2); Carbon Dioxide 28 mmol/L (22-32); Chloride 102 mmol/L (98-107); Estimated Glomerular Filt Rate > 60.0 mL/min (>60); Glucose 89 mg/dL (80-110); HEMOLYSIS < 15 (0-50); Potassium 3.4 mmol/L (3.4-5.1); Sodium 139 mmol/L (137-145)
[2018-10-29 09:55] VITALS: O2SAT 92
--- NOTE | 2018-10-29 10:08 | PC.NURSE ---
Addendum entered by Tana Carvalho R.N. 10/29/18 10:19: With walk documented below, 1LNC O2 removed, pt O2 sat 93% prior to ambulation while sitting on bed. During ambulation, O2 sat on RA decreased to 90%, HR increased to 119 after coughing. When pt back to chair in room, O2 sat 92% on RA. Original Note: Day Shift- Pt ambulated from room 218 down [address] [facility] to room 225 and back to room, stooped X1 for coughing and pt produced moderate amount of white sputum. Pt settled into chair at bedside with call light within reach. Reviewed splinting abd, log rolling for comfort. Upon getting OOB from lying to sitting, pt did need assistance straightening her torso upright. Dr. Cuellar in to see pt, plan for owen catheter removal today, increase to full liquid diet and ambulation. Pain controlled at 1/10 to midline abd incision, increased with walk and coughing, pain settled once in chair. Midline abd incision covered with CDI dressing, 2 coversites to mid and proximal end of incision and 1 allevyn dressing to distal end of incision. Dressings okay with Dr. Cuellar.
[2018-10-29 11:14] VITALS: BP 150/78; PULSE 82; RESP 17; TEMP 36.7; O2SAT 93
--- NOTE | 2018-10-29 12:24 | PM.PN.1 ---
Subjective Date Patient Seen: 10/29/18 Time Patient Seen: 10:33 Interval history: Doing well, up walking with therapies. Pain improved, no nausea. Shayne CLD, appetite improving. Has had some flatus. Exam Vital Signs (past 8 hours): - 10/29/18 04:27 10/29/18 08:03 10/29/18 09:55 Temperature 98.0 F 98.0 F Pulse Rate 73 76 Respiratory Rate 19 18 Blood Pressure 140/74 153/77 H Pulse Oximetry 91 94 92 10/29/18 11:14 Temperature 98.1 F Pulse Rate 82 Respiratory Rate 17 Blood Pressure 150/78 H Pulse Oximetry 93 Oxygen Delivery Method Nasal Cannula Oxygen Flow Rate 0 Narrative Exam Narrative: AAO, NAD EOMI, MMM unlabored RA soft, nd, appropriate ttp, inc clean and dressed MAEW Objective Labs Result Diagrams: 10/27/18 02:00 10/29/18 08:15 Labs: Laboratory Results - last 24 hr 10/29/18 08:15 Sodium 139 Potassium 3.4 Chloride 102 Carbon Dioxide 28 BUN 10 Creatinine 0.60 Estimated GFR > 60.0 BUN/Creatinine Ratio 16.7 Glucose 89 Calcium 8.6 Assessment & Plan Assessment & Plan narrative: - to FLD - AF, VSS - pain control, add PO and use pushes only for breakthrough - up with therapies, walking halls - decrease IVFs - remove owen - SCDs, lovenox Quality VTE Deep Vein Thrombosis/Pulmonary Embolism Present on Admission: No
[2018-10-29 15:30] VITALS: BP 146/74; PULSE 73; RESP 19; TEMP 36.6; O2SAT 91
[2018-10-29] MEDS: OXYCODONE/ACETAMINOPHEN 5/325 TABLET 1 TAB PO ×2 (15:34→21:58)
--- NOTE | 2018-10-29 15:41 | CM.DPC ---
DCP Cont: Looking at today's note from surgeon. Patient up walking, decreased pain at this time. Has not stated if patient could be discharged tomorrow. Plan is for home when stable. P: DCP to continue to follow. Patient should be able to go home when she is medically stable, and able to tolerate food. Natacha Narayan RN/Attending Physician
[2018-10-29 19:49] VITALS: BP 147/83; PULSE 75; RESP 18; TEMP 36.3
[2018-10-30] VITALS: BP 146/75; PULSE 72; RESP 16; TEMP 36.7; O2SAT 92
[2018-10-30] MEDS: LACTATED RINGERS 1,000 ML 70 ML IV (00:07)
--- NOTE | 2018-10-30 01:41 | PC.NURSE ---
2300- Pt POD#2 abdominal surgery w/ lysis of adhesions; abdom incision covered w/ dressing CDI. Moving 1PA w/ FWW; no BP draws on L arm. R AC IV running LR as ordered. Pt is on a full liquid diet, tolerating this well. 0500- Pt up to bathroom 1PA, using walker. States some pain with movement occurs; PO scheduled Advil given.
[2018-10-30] MEDS: IBUPROFEN 400 MG TABLET 800 MG PO ×3 (05:54→21:31)
[2018-10-30 05:57] VITALS: BP 139/75; PULSE 66; RESP 18; TEMP 36.5; O2SAT 93
[2018-10-30 08:00] VITALS: BP 164/79; PULSE 62; RESP 17; TEMP 36.6; O2SAT 92
[2018-10-30] MEDS: ENOXAPARIN 40 MG/0.4 ML SYRINGE SUBCUT (09:18)
--- NOTE | 2018-10-30 09:31 | PM.PN.1 ---
Subjective Date Patient Seen: 10/30/18 Time Patient Seen: 09:31 Interval history: Doing well, feels pretty good today. Walked a few times yesterday. Pain fairly well controlled. Shayne FLD but does not want more than that; has passed flatus. Exam Vital Signs (past 8 hours): - 10/30/18 05:57 10/30/18 08:00 Temperature 97.7 F 98 F Pulse Rate 66 62 Respiratory Rate 18 17 Blood Pressure 139/75 164/79 H Pulse Oximetry 93 92 Oxygen Delivery Method Nasal Cannula Oxygen Flow Rate 0 Narrative Exam Narrative: AAO, NAD EOMI, MMM unlabored RA soft, nt/nd, Inc dressed MAEW Objective Labs Result Diagrams: 10/27/18 02:00 10/29/18 08:15 Assessment & Plan Assessment & Plan narrative: - continues to improve - wants to stick with FLD today - passing flatus, no BM yet - continue to walk halls today - primarily PO pain meds, only pushes for breakthrough - HLIV Quality VTE Deep Vein Thrombosis/Pulmonary Embolism Present on Admission: No
[2018-10-30 10:48] VITALS: BP 147/79; PULSE 69; RESP 30; TEMP 37; O2SAT 92
[2018-10-30] MEDS: OXYCODONE/ACETAMINOPHEN 5/325 TABLET 1 TAB PO (13:19)
[2018-10-30 15:35] VITALS: BP 140/75; PULSE 66; RESP 20; TEMP 36.5; O2SAT 86
[2018-10-30 19:59] VITALS: BP 144/75; PULSE 75; RESP 20; TEMP 36.4
[2018-10-30] MEDS: SODIUM CHLORIDE 0.9% FLUSH 10 ML IV (21:31)
[2018-10-31] VITALS: BP 165/89; PULSE 68; RESP 18; TEMP 36.3; O2SAT 93
[2018-10-31] MEDS: OXYCODONE/ACETAMINOPHEN 5/325 TABLET 1 TAB PO (03:03)
[2018-10-31 04:28] VITALS: BP 160/70; PULSE 72; RESP 18; TEMP 36.2; O2SAT 92
[2018-10-31] MEDS: IBUPROFEN 400 MG TABLET 800 MG PO ×2 (06:11→14:47)
[2018-10-31 07:45] VITALS: BP 149/73; PULSE 67; RESP 16; TEMP 36.6; O2SAT 94
[2018-10-31] MEDS: ENOXAPARIN 40 MG/0.4 ML SYRINGE SUBCUT (08:58)
[2018-10-31] MEDS: SODIUM CHLORIDE 0.9% FLUSH 10 ML IV (08:58)
[2018-10-31] MEDS: POLYETHYLENE GLYCOL 3350 17 GM POWD.PACK PO (08:58)
--- NOTE | 2018-10-31 12:14 | PC.NURSE ---
Addendum entered by Tana Carvalho R.N. 10/31/18 15:24: Per verbal order by Dr. Chavez at 1430, remove abd katya, place steri-strips and okay to leave COLE. Information passed to evening RN. Original Note: Day Shift- One time Miralax given at 0858. Pt states passing lots of flatus, no BM post op yet. Abd dressing of coversite and allevyn dressing intact with small amount of sero-sang drainage to distal end of dressing. Denies nausea, tolerating diet. Pt and her daughter Roz had concerns regarding discharge and needing or not needing to have a BM prior to discharge. Pt's daughter requested to speak with Dr. Cuellar since she hasn't been update by the since surgery. This leader writer explained that the pt is oriented and has been updated by and staff has been updating Roz with plan of care also with pt's permission. Dr. Cuellar called at 1205 and given update, Dr. Cuellar stated she will come update pt and her daughter.
--- NOTE | 2018-10-31 14:36 | P.DS_ITS ---
History of Present Illness Chief complaint: stomache ache/constipation/pain 04/17 Narrative: 63yo F with new onset R sided abd pain starting this evening. Had some nausea but primarily pain. This progressed over the evening despite an at tempted enema which she had tried as she had previously been given this for a similar pain many years ago. Otherwise has not had similar pains or issues. Labs and vitals unremarkable in the ED but CT shows a closed loop SBO. Only abd surgery was a remote hysterectomy for benign disease. Her BP elevated to 190s/100s when I was in discussing the news and plan with her. On her request I spoke on the phone to her daughter, as well. Discharge Providers Date of admission: 10/27/18 03:50 Discharge Date: 10/31/18 Primary care physician: Patria Aiken DO Consults: 10/27/18 07:57 Consult to Discharge Planning Routine Comment: Discharge provider: Codi Cuellar MD Summary Discharge Diagnosis: Bowel Obstruction, Adhesive Disease Hospital Course: 63yo admitted with worsening abd pain and constipation. Imaging concerning for closed loop small bowel obstruction. Taken emergently to the OR and underwent lysis of adhesions. No specific obstruction point identified. Patient recovered from surgery and was discharged when aditya solids, bowels moving, and pain controlled. Status at Discharge Cognitive/behavioral status at discharge: at baseline, oriented Functional status at discharge: independent ambulation Overall status at discharge: patient is progressing back to baseline Time Spent with Patient Greater than 30 minutes Exam Vital Signs (past 8 hours): - 10/31/18 07:45 Temperature 97.8 F Pulse Rate 67 Respiratory Rate 16 Blood Pressure 149/73 H Pulse Oximetry 94 Oxygen Delivery Method Room Air Oxygen Flow Rate 0 Narrative Exam Narrative: AAO, NAD, obese female EOMI, MMM unlabored RA soft, nt/nd MAEW Objective Labs Result Diagrams: 10/27/18 02:00 10/29/18 08:15 Discharge Plan Discharge Plan Patient Disposition: Home Discharge Med Rec/Prescriptions Prescriptions: New oxycodone-acetaminophen 5-325 mg Tablet 1 tab PO Q4HR PRN (Reason: Pain, Moderate (4-6)) Qty: 30 RF: 0 ibuprofen 400 mg Tablet 800 mg PO Q8HR Qty: 30 RF: 0 docusate sodium 100 mg Capsule 100 mg PO BID PRN (Reason: Constipation) Qty: 60 RF: 1 Continued atorvastatin 40 mg Tablet 40 mg PO DAILY RF: 0 metoprolol succinate 50 mg Tablet Extended Release 24 Hr 50 mg PO BEDTIME RF: 0 exemestane 25 mg Tablet 25 mg PO Q OTHER DAY RF: 0 diphenhydramine HCl [Benadryl] 25 mg Capsule 25 mg PO BEDTIME PRN (Reason: Sleep) RF: 0 Follow up/Referrals: Patria Aiken DO [Primary Care Provider] - Codi Cuellar MD [Physician] - Provider Discharge Instructions Diet: Diet as Tolerated Activity: as tolerated no lifting >20 lbs x6 weeks Skin/Wound/Dressing Care Dressing: ok to shower Visit Report/Discharge Packet Instructions: DI for Lysis of Adhesions, How to Prevent Falls, DI for Postoperative Pain Stand Alone Forms: Surgery Discharge Discharge Data Primary Care Provider: Patria Aiken Attending Provider: Codi Cuellar Admit Date/Time: 10/27/18 03:50 Quality VTE Deep Vein Thrombosis/Pulmonary Embolism Present on Admission: No
--- NOTE | 2018-10-31 15:19 | CM.DPC ---
DCP: continued. Met with pt after noting the d/c orders from Dr. Cuellar. Introduced self and role. Pt confirms that Dr. Cuellar was just here and had discussed the surgery and POC with her and her daughter Roz. She says she is stooling, voiding and eating and I feel so very much better. 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 Plan: home as soon as her d/c paperwork is completed.
== END 2018-10-31 17:10 | disposition home or self-care (01) | DRG 337 ==
LOC: ED 03:44 → AC 03:51
PROVIDERS: Admitting Provider Surgery; Emergency Provider Emergency Medicine; PCP Family Medicine; Visit Provider Surgery
PROC: 0DNU0ZZ Release Omentum, Open Approach (ICD-10-PCS; CPT 49000; principal; 2018-10-27 04:35)
DX: K66.0 Peritoneal adhesions (postprocedural) (postinfection) (principal); E66.9 Obesity, unspecified; Z68.38 Body mass index [BMI] 38.0-38.9, adult; R10.9 Unspecified abdominal pain; K59.00 Constipation, unspecified; F17.210 Nicotine dependence, cigarettes, uncomplicated
CPT/HCPCS: 36415; 36591; 44005; 74177; 80048; 80053; 83605; 83690; 85025; 94760; 94762; 96361; 96374; 96375; 99222; 99282; 99285; J0330; J0690; J1100; J1170; J1650; J2405; J2704; J3010; Q9967

== ENCOUNTER 2018-11-28 22:29 | Emergency (ER) | payer BC, SELFPAY ==
[2018-10-27 08:23] VITALS: BMI 38.4
[2018-11-28 22:54] VITALS: BP 156/93; PULSE 70; RESP 15; TEMP 36.3; O2SAT 98; BMI 35.1
--- NOTE | 2018-11-29 00:08 | ED.ABDPAIN ---
HPI - Abdominal Pain General Chief Complaint: Abdominal Pain Stated Complaint: SHARP ABDOMINAL PAINS Time Seen by Provider: 11/29/18 00:08 Source: patient Mode of arrival: ambulatory Limitations: no limitations History of Present Illness HPI narrative: The patient underwent exploratory lap October 2018 due to a small bowel obstruction. She underwent lysis of adhesions. She did not require resection. She previously had hysterectomy 20 years ago she seems recovered well, there was a small amount of serous discharge from the wound several days after surgery. There still was a scab the upper extent of the surgical line. She is here now due to intermittent pain around the surgical site. She denies fever. There is no erythema. There is no purulent discharge from the site. She has no nausea, vomiting, diarrhea or constipation. She denies dysuria or hematuria. Related Data Home Medications Medication Instructions Recorded Confirmed atorvastatin 40 mg PO DAILY 10/27/18 10/27/18 diphenhydramine HCl [Benadryl] 25 mg PO BEDTIME PRN 10/27/18 10/27/18 exemestane 25 mg PO Q OTHER DAY 10/27/18 10/27/18 metoprolol succinate 50 mg PO BEDTIME 10/27/18 10/27/18 Previous Rx's Medication Instructions Recorded docusate sodium 100 mg PO BID PRN #60 cap 10/31/18 ibuprofen 800 mg PO Q8HR #30 tab 10/31/18 oxycodone-acetaminophen 1 tab PO Q4HR PRN #30 tab 10/31/18 Allergies Allergy/AdvReac Type Severity Reaction Status Date / Time codeine [CODEINE] Allergy Unknown Hives Verified 11/28/18 22:54 ketorolac [From TORADOL] Allergy Unknown Nausea Verified 11/28/18 22:54 Review of Systems Review of Systems ROS Unobtainable: All systems reviewed & are unremarkable except as noted in HPI and below Constitutional Reports system reviewed and no additional complaints, except as docu, Denies chills, Denies fatigue and Denies fever(s) Cardiovascular Denies chest pain, Denies lightheadedness, Denies palpitations and Denies dyspnea Respiratory Denies cough, Denies dyspnea and Denies wheezing Gastrointestinal Gastrointestinal: Reports as per HPI, Reports abdominal pain, Denies change in bowel habits, Denies diarrhea, Denies nausea and Denies vomiting Genitourinary Denies dysuria Musculoskeletal Denies back pain Integumentary/Breasts Denies rash Comments: Scabs in other areas healing around the surgical site. Endocrine Denies fatigue and Denies palpitations Allergic/Immunologic Denies wheezing [facility] Medical History (Updated 11/29/18 @ 00:22 by Thang Rodriguez MD) Small bowel obstruction (Acute) Breast cancer (Acute) Fusion of spine of cervical region (Acute) H/O: hysterectomy (Acute) Healthy adult (Acute) Vertigo (Acute) Surgical History (Updated 11/29/18 @ 00:20 by Thang Rodriguez MD) History of exploratory laparotomy (Acute) Social History household members: family and children Smoking Status: Never smoker alcohol intake: never Social History household members: family and children Smoking Status: Never smoker alcohol intake: never Exam Initial Vital Signs Initial Vital Signs: Vital Signs Temperature 97.4 F L 11/28/18 22:54 Pulse Rate 70 11/28/18 22:54 Respiratory Rate 15 11/28/18 22:54 Blood Pressure 156/93 H 11/28/18 22:54 Pulse Oximetry 98 11/28/18 22:54 Const General: cooperative and well developed Nutritional Appearance: well nourished Orientation: alert, awake, oriented x3 and not confused Chest Chest: normal inspection of the chest Resp Effort & Inspection: normal respiratory effort, able to speak in complete sentences, no respiratory distress and no use of accessory muscles Auscultation: clear to auscultation bilaterally, no rales, no rhonchi and no wheezes Cardio Rate: regular rate Rhythm: regular rhythm Heart Sounds: S1 normal, S2 normal, no click, no gallops, no murmurs and no rubs Pulses: normal peripheral pulses GI Inspection: non-distended and obesity Palpation: soft Auscultation: normal bowel sounds Other: Well healed surgical site. Tenderness is in the periumbilical area. There is no distention, guarding or rebound. She has a palpable firmness in the suprapubic portion of the scar, probably representing a hematoma. Course Vital Signs - 8 hr 11/28/18 22:54 Temperature 97.4 F L Pulse Rate 70 Respiratory Rate 15 Blood Pressure 156/93 H Pulse Oximetry 98 Discharge Plan Departure Patient Disposition: Home Clinical Impression: Acute postoperative abdominal pain Instructions: DI for Postoperative Pain Activity Restrictions/Additional Instructions: I would recommend Tylenol 2 tablets every 4 hours as needed for pain. The wound appears to be healing well. Return to the ER if you developed redness and swelling at the site or fever. Follow-up with her doctor in 4-6 weeks if you have ongoing concerns about the healing process. Prescriptions: No Action atorvastatin 40 mg Tablet 40 mg PO DAILY RF: 0 metoprolol succinate 50 mg Tablet Extended Release 24 Hr 50 mg PO BEDTIME RF: 0 exemestane 25 mg Tablet 25 mg PO Q OTHER DAY RF: 0 diphenhydramine HCl [Benadryl] 25 mg Capsule 25 mg PO BEDTIME PRN (Reason: Sleep) RF: 0 oxycodone-acetaminophen 5-325 mg Tablet 1 tab PO Q4HR PRN (Reason: Pain, Moderate (4-6)) Qty: 30 RF: 0 ibuprofen 400 mg Tablet 800 mg PO Q8HR Qty: 30 RF: 0 docusate sodium 100 mg Capsule 100 mg PO BID PRN (Reason: Constipation) Qty: 60 RF: 1 Referrals: Patria Aiken DO [Primary Care Provider] -
[2018-11-29 00:25] VITALS: BP 151/90; PULSE 70; RESP 15; O2SAT 98
== END 2018-11-29 00:32 | disposition home or self-care (01) ==
PROVIDERS: Emergency Provider Emergency Medicine; Family Provider Family Medicine; PCP Family Medicine; Referring Provider Surgery
DX: G89.18 Other acute postprocedural pain (principal)
CPT/HCPCS: 99282

== ENCOUNTER → 2019-10-13 12:25 | Outpatient (CLI) | payer BC, SELFPAY ==
[2018-10-27 08:23] VITALS: BMI 38.4
--- NOTE | 2019-10-13 | DI.MRI.S_ITS ---
BREAST MRI OF BOTH BREASTS- POST LUMPECTOMY: 10/13/2019 CLINICAL: Left breast cancer. TECHNIQUE: The patient was placed prone in a dedicated breast imaging coil. Precontrast axial STIR and 3D FLASH without fat saturation sequences were obtained. Both before and after bolus injection of contrast, sequential 1-minute axial 3D FLASH with fat saturation sequences for 3 time points, with subtraction images and maximum intensity projections (MIP's) generated. Delayed sagittal FLASH images with fat saturation were also obtained. 20 cc of ProHance (Gadoteridol) nonionic contrast was injected. Computer-aided detection, including computer algorithm analysis of MRI image data for lesion detection and characterization, pharmacokinetic analysis, with further physician review for interpretation, was performed. COMPARISON: Comparison is made to exams dated: 09/03/2019 mammogram, 05/26/2019 ultrasound, 05/26/2019 mammogram, and 08/28/2018 mammogram - [facility] [place]. FINDINGS: Image quality: Excellent. There is mild bilateral background parenchymal enhancement. Right breast: There are scattered intramammary lymph nodes present. No suspicious mass or non-masslike enhancement. Left breast: The left breast is mildly asymmetrically diminutive and demonstrates skin thickening, particularly over the lower inner aspect. Mild retroareolar edema without ductal dilatation. Scattered, benign appearing intramammary lymph nodes are present. One in the 2:00 position is also seen on mammography. In the 3:00 region along the chest wall, in an area not seen on the mammogram, there are postsurgical changes including multiple surgical clips, a roughly 2.5 cm nonenhancing spiculated masslike surgical scar, and spiculation which extends anteriorly into the breast tissue and also abuts the chest wall. There is no suspicious enhancement in or around this region, or along the chest wall, however this scarring may be symptomatic for the patient. Miscellaneous: No bulky axillary adenopathy. No suspicious internal mammary chain adenopathy. The visible portions of the chest wall are normal without enhancement. The visible liver, lungs, and heart are normal. IMPRESSION: 1. There is benign-appearing postsurgical change in the 3:00 position in left breast along the chest wall which may be symptomatic. 2. No suspicious findings in the 10 to 11:00 position of the left breast to correspond to pain reported in May of 2019. 3. There is retroareolar edema and skin thickening in the lower inner aspect of the left breast, presumed radiation changes. 4. Scattered bilateral intramammary lymph nodes are benign. No bulky adenopathy. 5. The patient can return to annual screening mammography. BIRADS 2, benign. COMMENT: The imaging literature indicates that a negative contrast breast MRI examination has a high sensitivity and a moderate specificity for detecting and excluding invasive carcinomas to a detection threshold of 3-5 mm; nonetheless, appropriate clinical and mammographic follow-up are recommended. MRI is not sensitive for detecting DCIS (ductal carcinoma in situ) and may not detect large invasive neoplasms that show only minimal enhancement such as mucinous carcinoma. If there are suspicious calcifications or clinically worrisome palpable masses, then biopsy should still be considered. Invasive neoplasms can be hidden by co-existent and benign enhancement caused by mastitis, hormone therapy effects, radiation therapy, , and recent biopsy or surgery. False positive examinations can occur in a number of circumstances, including breasts that have recently been subject to invasive procedures and those that contain atypical ductal hyperplasia, hormonally stimulated glandular tissue, fat necrosis, or radial scars. Return to annual mammogram screening schedule is recommended. This exam was interpreted at Station ID: [id number]. Electronically Signed By: Shayna rosales/:10/13/2019 15:18:27 letter sent: Normal Exam ACR BI-RADS Category 2: Benign Finding(s) [id number]
== END ==
PROVIDERS: Family Provider Family Medicine; PCP Family Medicine; Referring Provider Family Medicine; Visit Provider Family Medicine
DX: C50.912 Malignant neoplasm of unspecified site of left female breast (principal); N64.4 Mastodynia
CPT/HCPCS: 77049; A9579

== ENCOUNTER 2020-03-18 09:30 | Emergency (ER) | payer BC, SELFPAY ==
[2018-10-27 08:23] VITALS: BMI 38.4
[2020-03-18 09:38] VITALS: BP 215/109
[2020-03-18 09:39] VITALS: BP 215/109; PULSE 78; RESP 22; TEMP 36.6; O2SAT 98
--- NOTE | 2020-03-18 09:40 | ED.BACK ---
HPI - Back Pain/Injury General Chief Complaint: Back Pain/Injury Stated Complaint: severe pain groin/back rt knee Time Seen by Provider: 03/18/20 09:40 Source: patient Mode of arrival: Ambulatory Limitations: no limitations History of Present Illness HPI Narrative: The patient is a 65-year-old female with history of breast cancer who presents with right-sided back pain and leg pain. It started last evening around 1:00 a.m. she rolled over in bed and started having pain. She is at feels like it is radiating from the middle of her back down her leg to the top of her knee. She has some numbness and tingling. She denies any changes in bowel or bladder habits. She has some numbness in her left heel all ready. Related Data Home Medications Medication Instructions Recorded Confirmed atorvastatin 40 mg PO DAILY 10/27/18 10/27/18 diphenhydramine HCl [Benadryl] 25 mg PO BEDTIME PRN 10/27/18 10/27/18 exemestane 25 mg PO Q OTHER DAY 10/27/18 10/27/18 metoprolol succinate 50 mg PO BEDTIME 10/27/18 10/27/18 Previous Rx's Medication Instructions Recorded docusate sodium 100 mg PO BID PRN #60 cap 10/31/18 ibuprofen 800 mg PO Q8HR #30 tab 10/31/18 oxycodone-acetaminophen 1 tab PO Q4HR PRN #30 tab 10/31/18 cyclobenzaprine 5 mg PO TID PRN #10 tab 03/18/20 Allergies Allergy/AdvReac Type Severity Reaction Status Date / Time codeine [CODEINE] Allergy Unknown Hives Verified 11/28/18 22:54 Review of Systems Review of Systems Narrative: GENERAL: Denies chills, fatigue, malaise, fever, sweats, travel HEENT: Denies sinus pain, ear pain, sore throat, difficulty swallowing, neck pain RESPIRATORY: Denies dyspnea, cough, wheezing, hemoptysis, sputum. CARDIOVASCULAR: Denies chest pain, palpitations, orthopnea, edema GASTROINTESTINAL: Denies nausea, vomiting, abdominal pain, diarrhea, constipation, melena. : Denies dysuria, frequency, incontinence, hematuria, urinary retention, flank pain. MUSCULOSKELETAL: See HPI SKIN: No rash, no erythema, no pruritus NEUROLOGIC: Denies weakness, dizziness, headache, numbness, change in speech, confusion PSYCHIATRIC: No concerning psychosocial issues. 12 point review of systems is negative except for those stated above and HPI Patient History Medical History (Updated 03/18/20 @ 10:31 by Katia Ambrose DO) Breast cancer (Acute) Fusion of spine of cervical region (Acute) Healthy adult (Acute) Small bowel obstruction (Acute) Vertigo (Acute) Surgical History (Updated 11/29/18 @ 00:20 by Thang Rodriguez MD) H/O: hysterectomy (Acute) History of exploratory laparotomy (Acute) Social History household members: family and children Smoking Status: Never smoker alcohol intake: never Smoking Status: Never smoker alcohol intake frequency: 0-2 drinks per day Substance Use Type: does not use Exam Initial Vital Signs Initial Vital Signs: Vital Signs Blood Pressure 215/109 H 03/18/20 09:38 GENERAL: Alert older female appears uncomfortable CARDIOVASCULAR: peripheral pulses in tact, cap refill <2 sec RESPIRATORY: No respiratory distress, speaks in full sentences without difficulty BACK: Midline lumbar pain and right lower lumbar pain no step-offs, muscle spasm appreciated EXTREMITIES: Normal range of motion, no clubbing or edema. Neurovascularly intact NEUROLOGICAL: Cranial nerves II through XII grossly intact. Normal gait and speech. Sensation of lower extremities intact SKIN: Warm, dry, no petechiae, no rashes or lesions. Scores ABCD2 Citation: Lancet. 2006Aug 04;369(5644):283-59. Validation and refinement of scores to predict very early stroke risk after transient ischaemic attack. Bonny SC1, Ann PM, Navarro MN, Eliseo MF, Josh JS, Bridgette AL, Abdiel S. Course Orders Ordered: Discontinued Medications Cyclobenzaprine HCl (Flexeril) 10 mg PO NOW ONE Stop: 03/18/20 10:02 Last Admin: 03/18/20 10:12 Dose: 10 mg Documented by: WILLIAM Ibuprofen (Advil) 800 mg PO NOW ONE Stop: 03/18/20 10:02 Last Admin: 03/18/20 10:11 Dose: 800 mg Documented by: WILLIAM Vital Signs Vital signs: Vital Signs - 8 hr 03/18/20 09:38 03/18/20 09:39 03/18/20 10:57 Temperature 97.9 F Pulse Rate 78 80 Respiratory Rate 22 16 Blood Pressure 215/109 H 215/109 H 197/90 H Pulse Oximetry 98 97 MDM - Back Pain/Injury MDM Narrative Medical decision making narrative: Patient ambulatory in the ED her pain is improved after ibuprofen and Flexeril. She is given prescription for Flexeril. Discharge Plan Departure Patient Disposition: Home Clinical Impression: Acute back pain with sciatica Qualifiers: Laterality: right Qualified Code(s): M54.41 - Lumbago with sciatica, right side Discharge Date/Time: 03/18/20 10:57 Instructions: DI for Back Pain With Sciatica Activity Restrictions/Additional Instructions: *You have been diagnosed with back pain with sciatic *What to do: Increase activity as tolerated, recommend heating pad and light stretching no strenuous activity. You may require physical therapy and or an MRI please discuss this with her primary care provider *Continue to take medications as directed Ibuprofen 600 mg every 6-8 hours if needed for wcaz-[id number] pain Flexeril 5 mg every 8 hours if needed for muscle spasm--> [facility] [place] *Follow up with your primary care provider in 2-3 days *Return to ER if you should have changes in bowel or bladder habits, increased leg weakness, or any new, worsening or concerning symptoms Prescriptions: New cyclobenzaprine 5 mg tablet 5 mg PO TID PRN (Reason: muscle spasm) Qty: 10 RF: 0 No Action atorvastatin 40 mg Tablet 40 mg PO DAILY RF: 0 metoprolol succinate 50 mg Tablet Extended Release 24 Hr 50 mg PO BEDTIME RF: 0 exemestane 25 mg Tablet 25 mg PO Q OTHER DAY RF: 0 diphenhydramine HCl [Benadryl] 25 mg Capsule 25 mg PO BEDTIME PRN (Reason: Sleep) RF: 0 oxycodone-acetaminophen 5-325 mg Tablet 1 tab PO Q4HR PRN (Reason: Pain, Moderate (4-6)) Qty: 30 RF: 0 ibuprofen 400 mg Tablet 800 mg PO Q8HR Qty: 30 RF: 0 docusate sodium 100 mg Capsule 100 mg PO BID PRN (Reason: Constipation) Qty: 60 RF: 1 Referrals: Patria Aiken DO [Primary Care Provider] -
[2020-03-18] MEDS: IBUPROFEN 400 MG TABLET 800 MG PO (10:11)
[2020-03-18] MEDS: CYCLOBENZAPRINE 10 MG TABLET PO (10:12)
[2020-03-18 10:57] VITALS: BP 197/90; PULSE 80; RESP 16; O2SAT 97
== END 2020-03-18 10:57 | disposition home or self-care (01) ==
PROVIDERS: Emergency Provider Emergency Medicine; Family Provider Family Medicine; PCP Family Medicine
DX: M54.41 Lumbago with sciatica, right side (principal)
CPT/HCPCS: 93041; 99283

== ENCOUNTER → 2020-04-02 11:37 | Outpatient (CLI) | payer BC, SELFPAY ==
[2018-10-27 08:23] VITALS: BMI 38.4
--- NOTE | 2020-04-02 | DI.MRI.S_ITS ---
PROCEDURE: MR LUMBAR SPINE WO CON INDICATIONS: Spondylolisthesis, lumbosacral region TECHNIQUE: Noncontrast sagittal T1 spin echo and T2 fast echo, sagittal STIR, axial T1 and T2 fast spin echo through the lumbar spine. In cases with scoliosis, additional coronal T2 fast spin echo may be performed. COMPARISON: None. FINDINGS: Image quality: Excellent. Alignment and Curvature: There is grade 1 L5-S1 anterolisthesis secondary to bilateral L5 pars interarticularis defects. There is trace L2-L3 anterolisthesis secondary to facet hypertrophy. There is trace L4-L5 retrolisthesis secondary to facet hypertrophy. Bone Marrow: Reactive endplate changes noted adjacent to the L2-L3, L4-L5 and L5-S1 disc. No acute vertebral body compression fractures. Spinal Cord: Conus medullaris terminates at the L1 level. Visualized cord demonstrates normal signal and size. Paraspinous Soft Tissues: No paravertebral masses. L1-L2: Loss of disc signal. Mild, diffuse disc bulge. No central stenosis. Mild left neural foraminal narrowing. No neural compression. L2-L3: Loss of disc signal and slight loss of disc height. Moderate, diffuse disc bulge. Mild bilateral facet hypertrophy. Mild narrowing of the central canal. Mild right and moderate left neural foraminal narrowing. No neural compression. L3-L4: Loss of disc signal and height. Mild, diffuse disc bulge. Mild ligamentum flavum hypertrophy. No central stenosis. Moderate to severe right and mild left neural foraminal narrowing with slight compression of the exiting right L3 nerve root. L4-L5: Loss of disc signal and height. Mild, diffuse disc bulge. Mild bilateral facet hypertrophy. No central stenosis. Moderate to severe bilateral neural foraminal narrowing with slight compression of the exiting L4 nerve roots. L5-S1: Loss of disc signal and height. Mild bilateral facet hypertrophy. No central stenosis. Severe bilateral neural foraminal narrowing with compression of the exiting bilateral L5 nerve roots. IMPRESSION: 1. Grade 1 L5-S1 isthmic spondylolisthesis. Grade 1 L2-L3 and L4-L5 degenerative spondylolisthesis. 2. Multilevel degenerative disease. 3. Multilevel facet arthropathy. 4. No significant central canal narrowing. 5. Severe bilateral L5-S1 neural foraminal narrowing with compression of the exiting bilateral L5 nerve roots. Moderate to severe bilateral L4-L5 neural foraminal narrowing with slight compression of the exiting L4 nerve roots. Moderate to severe right L3-L4 neural foraminal narrowing with slight compression of the exiting right L3 nerve root. Dictated by: Kassie Brito MD, PhD on 04/02/2020 at 14:53 Approved by: Kassie Brito MD, PhD on 04/02/2020 at 15:01
== END ==
PROVIDERS: Family Provider Family Medicine; PCP Family Medicine; Referring Provider Family Medicine; Visit Provider Orthopaedic Surgery Orthopaedic Surgery of the Spine
DX: M51.36 Other intervertebral disc degeneration, lumbar region (principal); M48.061 Spinal stenosis, lumbar region without neurogenic claudication; M48.07 Spinal stenosis, lumbosacral region; M43.17 Spondylolisthesis, lumbosacral region; M43.16 Spondylolisthesis, lumbar region
CPT/HCPCS: 72148

== ENCOUNTER → 2020-05-27 10:00 | Outpatient (CLI) | payer BC, SELFPAY ==
[2018-10-27 08:23] VITALS: BMI 38.4
[2020-05-27 10:51] LABS: Add Manual Diff / Slide Review NO; Basophils Absolute Auto 0 /uL (0-100); Basophils Percent Auto 0.3 % (0-2); Eosinophils Absolute Auto 200 /uL (0-450); Eosinophils Percent Auto 2.4 % (2-4); Hemoglobin 13.1 g/dL (12.0-16.0); Lymphocytes Absolute Auto 2000 /uL (1100-4500); Lymphocytes Percent Auto 28.4 % (25-40); Mean Corpuscular HGB Conc 33.4 % (30-36); Mean Corpuscular Hemoglobin 29.6 PG (26-34); Mean Corpuscular Volume 88.7 fL (80-100); Monocytes Absolute Auto 700 /uL (0-900); Monocytes Percent Auto 9.3 % (3-14); Neutrophils Absolute Auto 4200 /uL (1500-7000); Neutrophils Percent Auto 59.6 % (50-75); Platelet Count 363 X10^3/uL (150-400); Red Cell Distribution Width 13.9 % (11.6-14.8); White Blood Cell Count 7.1 X10^3/uL (4.5-11.0)
[2020-05-27 11:09] LABS: BUN Creatinine Ratio 26.7 (6-22); Blood Urea Nitrogen 16 mg/dL (7-17); Calcium 9.8 mg/dL (8.4-10.2); Carbon Dioxide 33 mmol/L (22-32); Chloride 102 mmol/L (98-107); Estimated Glomerular Filt Rate > 60.0 mL/min (>60); Glucose 97 mg/dL (80-110); HEMOLYSIS < 15 (0-50); Potassium 3.6 mmol/L (3.4-5.1); Sodium 141 mmol/L (137-145)
[2020-05-27 12:16] LABS: Appearance Urine UA CLEAR; Bilirubin Urine UA NEGATIVE (NEGATIVE); Color Urine UA YELLOW; Glucose Urine UA NEGATIVE (Negative); Ketones Urine UA NEGATIVE (NEGATIVE); Leukocyte Esterase Urine UA NEGATIVE (NEGATIVE); Nitrite Urine UA NEGATIVE (Negative); Occult Blood Urine UA NEGATIVE (Negative); Protein Urine UA NEGATIVE (Negative); Specific Gravity Urine UA 1.015 (1.000-1.035); Urobilinogen Urine UA 0.2 E.U./dL (0.2)
[2020-05-27 12:27] LABS: Bacteria Urine Few (2-10); Culture Indicated Urine Cult Not Indicated; RBC Urine 0-1/HPF (0-5/HPF); Squamous Epithelial Cell Urine 1-5 /HPF (0-5/HPF); WBC Urine 1-5/HPF (0-5/HPF)
== END ==
PROVIDERS: Family Provider Family Medicine; PCP Family Medicine; Referring Provider Orthopaedic Surgery Orthopaedic Surgery of the Spine; Visit Provider Orthopaedic Surgery Orthopaedic Surgery of the Spine
DX: Z01.818 Encounter for other preprocedural examination (principal); Z01.812 Encounter for preprocedural laboratory examination; N39.0 Urinary tract infection, site not specified
CPT/HCPCS: 36415; 80048; 81001; 85025; 93005

== ENCOUNTER → 2020-06-12 08:28 | Outpatient (CLI) | payer BC, MEDICARE, SELFPAY ==
[2018-10-27 08:23] VITALS: BMI 38.4
[2020-06-12 09:41] LABS: COVID19 -Nasal RAPID Negative (Negative)
== END ==
PROVIDERS: Family Provider Family Medicine; PCP Family Medicine; Visit Provider Physician Assistant
DX: Z11.59 Encounter for screening for other viral diseases (principal)
CPT/HCPCS: 87635

== ENCOUNTER 2020-06-14 06:22 | Inpatient (IN) | payer BC, MEDICARE, SELFPAY ==
[2018-10-27 08:23] VITALS: BMI 38.4
[2020-06-07 14:00] VITALS: BMI 38.5
[2020-06-14] VITALS (20 sets, daily range): BP systolic 116–179; BP diastolic 60–90; PULSE 64–97; RESP 9–20; TEMP 36.4–37.3; O2SAT 87–99; BMI 39.0
--- NOTE | 2020-06-14 | DI.RAD.S_ITS ---
PROCEDURE: XR LUMBAR SPINE 2-3V INDICATIONS: L4-5, L5-S1 TLIF TECHNIQUE: 2 views of the lumbar spine were acquired. COMPARISON: None. FINDINGS: Spot fluoroscopic images demonstrating lumbar spinal fixation from L4-S1 with paraspinal peyton and pedicle screws. Interbody cage grafts also noted at L4-L5 and L5-S1. Dictated by: Jayson Bruce M.D. on 06/14/2020 at 12:33 Approved by: Jayson Bruce M.D. on 06/14/2020 at 12:35
[2020-06-14] MEDS: LACTATED RINGERS 1,000 ML 42 ML IV ×2 (07:05→10:38)
[2020-06-14] MEDS: ACETAMINOPHEN 325 MG TABLET 975 MG PO (07:36)
[2020-06-14] MEDS: CEFAZOLIN 2 GM/100 ML FROZ.PIGGY IV ×3 (07:54→15:56)
--- NOTE | 2020-06-14 08:00 | PM.PREOP ---
Pre-operative Note COVID-19 COVID-19 status: Negative Result date/Date tested (Pos, Neg/Pending): 06/12/20 Interval Note History & Physical reviewed/Exam performed by Physician: Yes Changes to H&P: No
--- NOTE | 2020-06-14 08:49 | SUR.OPER ---
Prone on spine table, head in foam head support, padded chest and pelvic supports, gel pad at knees, lower legs supported by pillows; nipples, genitalia and toes free of pressure, arms secured on foam padded arm boards at <90 degrees abduction. Tape over blanket at thigh secured to table.
[2020-06-14] MEDS: BUPIVACAINE LIPOSOME 266 MG/20 ML VIAL INJ (09:00)
[2020-06-14] MEDS: BUPIVACAINE 0.5% W/ EPI (PF) 30 ML VIAL INJ (09:02)
--- NOTE | 2020-06-14 12:01 | PM.OP.1 ---
Operative Date/Time/Diagnoses Date of procedure: 06/14/20 Time of procedure: 08:02 Pre-op diagnosis: 1. L4-5, L5-S1 spondylolisthesis 2. L3-4, L4-5, L5-S1 spinal stenosis Post-op diagnosis: same Procedure & Clinicians Procedure: 1. L4-5, L5-S1 Postero-lateral and posterior interbody fusion 2. L4-5, L5-S1 interbody cage placement. 3. L4-5, L5-S1 decompressive laminectomy with bilateral facetecomies 4. L4-5, L5-S1 Posterior segmental instrumentation 5. L3-4 left hemilaminectomy 6. [place] of bone marrow from iliac crest 7. Utilization of microsurgical technique and operating microscope Same procedure as scheduled: Yes Indications: Patient failed multiple conservative management with worsening pain weakness and numbness in her lower extremity. Patient has been having difficulty performing activity of daily living. After discussing risks benefits of treatment options, patient elected proceed with surgery. Surgeon: Дмитрий Ching Director Environmental: Nargis Mojica'Brien Click Yes if Unassisted: Yes Anesthesia Type: General Operative Notes Closure Type: primary Specimen(s): none sent Prosthetic devices, grafts, tissues, transplants, or devices: Globus revolve screws, Rise cages Applied: catheter Estimated Blood Loss (mL): 250 Blood products transfused: none Procedure in detail: Patient was seen in the preoperative area. Risks and benefits of the surgery was discussed with the patient. Informed consent was obtained from the patient and placed in the chart. Surgical site was marked. Patient was taken to the operative room. General anesthesia was administered. Prophylactic antibiotic was given to the patient less than 30 min before the incision was made. Patient was placed into a prone position on the Delfin table. Patient's back was then prepped and draped in the sterile fashion. Time-out was performed at this time. Using AP and lateral C-arm imaging the interval between L4-S1 was identified and marked on patient's back. A 2 inch incision 2 in from midline was made on the Left side first. The fascia was incised in line with skin incision. Globus MARS retractors was placed inside the incision and docked onto the L4 and L5 lamina. Using microsurgical technique and operating microscope, a L4 and L5 laminectomy and L4-5 L5-S1 facetectomy was performed using a Kerrison rongeur. During the process of decompression more than 75% of bilateral L4-5 L5-S1 facets were removed in order to decompress the spinal canal and the lateral recess. The L4-5 L5-S1 level was grossly unstable after the decompression was completed and requiring the fusion procedure. The disc space at L4-5, L5-S1 was identified. And a total diskectomy was performed at L4-5, L5-S1 level. The endplates were decorticated using a rasp and shaver. The total diskectomy and decortication was performed at L4-5, L5-S1 level in order to to accomplish a L4-5, L5-S1 fusion. The local bone from the laminectomy and facetectomy was saved for local bone grafting. After the total diskectomy and decortication was completed, Trifecta bone graft material was combined with local bone that was harvested earlier. At this time, a separate skin is incision was made over the iliac crest. A Jamshidi needle was inserted into the iliac crest through a separate skin incision. 5 cc of bone marrow aspiration was obtained through the separate skin incision using a Jamshidi needle from the iliac crest. The bone marrow aspiration was combined with local bone and the Trifecta bone grafting material. The bone grafting material was placed into the L4-5, L5-S1 interbody space along with two cages, one expandable cage at each level. The cages were expanded to their maximum height using the torque limiting screwdriver. The MARS retractor was then redirected over the L3-4 level. Using the micro surgical technique and operative microscope a L3 a hemilaminectomy was performed. Kerrison rongeur was used to undercut the facet to further decompress the lateral recess. The neural foramen was palpated and was patent once decompression was completed. At this time a mirror image incision was made on the right side. The fascia was incised in line with the skin incision. Globus MARS retractor was inserted and docked onto the L4-5, L5-S1 posterolateral gutter. Using the power drill, posterior-lateral decortication was performed at L4-5, L5-S1 level until bleeding cortical bone was identified. The remaining bone grafting material was placed into the L4-5 L5-S1 posterior lateral gutter he order to accomplish posterolateral fusion at the L4-5 L5-S1 levels. Using the double C-arm technique, pedicle screws were placed into the L4, L5, S1 pedicles bilaterally. This was done by placing the Jamshidi needle into the pedicles, then placing the guidewires over the Jamshidi needle, and finally placing the cannulated screws over the guidewires bilaterally. After the pedicle screws were placed, 2 titanium rods was locked into the heads of the pedicle screws using locking caps and torque limiting screwdriver. Total 6 pedicles screws were placed. Threaded reducers were used to reduce the patient's spondylolisthesis which was appropriately reduced and stabilized using hardware placed. After all the hardware was placed, and confirmed with AP and lateral C-arm imaging, the wound was then irrigated with sterile normal saline and packed with Ray-Elizabeth gauze for 3 min to accomplish hemostasis. After the gauze was removed the deep fascia was closed with #1 Vicryl suture. The subcutaneous layer was closed with 2-0 Vicryl. The skin was closed with skin katya. Patient tolerated the procedure well. There were no complications. Complications: none Post-operative Condition: stable Disposition: PACU Plan for aftercare: Admit to inpatient hospital
[2020-06-14] MEDS: fentaNYL 100 MCG/2 ML INJ IV (12:14)
[2020-06-14] MEDS: HYDROMORPHONE 2 MG INJ IV (12:20)
[2020-06-14] MEDS: OXYCODONE IR 5 MG TABLET PO ×2 (12:25→12:53)
[2020-06-14] MEDS: METOPROLOL ER 25 MG TABLET PO (12:25)
[2020-06-14] MEDS: hydrOXYzine pamoate 25 MG CAPSULE PO (12:25)
[2020-06-14] MEDS: SODIUM CHLORIDE 0.9% 1,000 ML 100 ML IV (13:19)
--- NOTE | 2020-06-14 13:26 | SUR.PHASEI ---
Pt arrived from OR on bed, she had restless legs, Dr Bean gave pt 0.5mg IV dilaudid. Pt was able to wake up and state pain was 10/10 prior to admin. Pt continued to c/o pain and was medicated with fentanyl and additional 0.5mg dilaudid. She also received 10 mg total PO oxy and 25 mg PO vistaril. She was on O2 for a bit as sats were down after medical assistant secretary, able to wean back to RA. Pt kept stating that there was pain and why will it not go away. Explained to pt that it will not happen and she falls asleep immediately after conversation. No frown or furrow on face, appears relaxed while asleep. Pt states pain is down to 6-7/10 from 10/10. Denies nausea. Tolerated applesauce with medical assistant secretary. Report to Isamar JOLLY on phone and garry JOLLY in room
--- NOTE | 2020-06-14 14:15 | PC.NURSE ---
Assumed care of patient at 1315. Patient drowsy but responds appropriately. O2 drops while patient is at rest, NC on at 2L. Patient denies pain at this time. Patient turned to visualize incision and dressing, patient tolerated well. Island barrier dressing intact, quarter sized serous drainage noted on right aspect of dressing. SCD's on bilaterally. Noted, no BP to be performed on the LUE. NS infusing in the right hand at 100cc/hr. Patients given IS and instructed on use. Patient verbalized understanding and performed two repetitions. Jang is patent and draining clear yellow urine. Glasses are bedside, belongings including cane are in closet. Patient and daughter will not be placing items in safe and patient has not brought home medications. DaughterRoz will remain beside as patients designated visitor.
--- NOTE | 2020-06-14 15:51 | PT-IP ANOTE ---
Received PT orders and reviewed chart. Attempted to meet with pt to initiate evaluation but pt is too drowsy to participate. Will follow up in the morning of 06/15/20.
--- NOTE | 2020-06-14 16:15 | PC.NURSE ---
Pt is sleeping vss, dtr rooming in. pulse ox 94% on 2lnc
[2020-06-14] MEDS: SENNOSIDES 8.6 MG TABLET 17.2 MG PO (19:42)
[2020-06-14] MEDS: METOPROLOL ER 50 MG TABLET PO (19:42)
[2020-06-14] MEDS: DOCUSATE 100 MG CAPSULE PO (19:43)
[2020-06-14] MEDS: OXYCODONE IR 5 MG TABLET 10 MG PO (19:43)
[2020-06-15] VITALS (10 sets, daily range): BP systolic 112–144; BP diastolic 55–71; PULSE 66–76; RESP 16–18; TEMP 36.1–37.4; O2SAT 87–97
[2020-06-15] MEDS: CEFAZOLIN 2 GM/100 ML FROZ.PIGGY IV (00:14)
[2020-06-15] MEDS: SODIUM CHLORIDE 0.9% 1,000 ML 100 ML IV (02:18)
[2020-06-15] MEDS: OXYCODONE IR 5 MG TABLET 10 MG PO ×3 (02:44→20:15)
[2020-06-15 06:29] LABS: Hematocrit 30.9 % (36-46); Hemoglobin 10.2 g/dL (12.0-16.0)
--- NOTE | 2020-06-15 06:50 | PC.NURSE ---
Addendum entered by Melony Russo R.N. 06/15/20 06:52: charted in error Original Note: lab reports critical values of WBC's 1.5 and platelets 8. Report to YING Duran, w/no current orders but anticipation of her needing platelets today.
--- NOTE | 2020-06-15 07:53 | PM.PN.1 ---
Subjective Subjective Date Patient Seen: 06/15/20 Time Patient Seen: 07:53 Interval history: Patient is POD#1 s/p L4-5, L5-S1 TLIF with Dr. Ching. Pain has been about the incision and well controlled. She has not yet mobilized. Owen catheter in place. She is tolerating a diet. No complaints. Exam Vital Signs (past 8 hours): - 06/15/20 00:00 06/15/20 05:20 06/15/20 07:34 Temperature 97.8 F 98.0 F Pulse Rate 69 66 72 Respiratory Rate 18 18 16 Blood Pressure 124/66 112/68 Pulse Oximetry 96 94 96 Oxygen Delivery Method Nasal Cannula Oxygen Flow Rate 1.5 Narrative Exam Narrative: Well nourished 65 year old female resting in bed, alert and oriented in no acute distress. Dressing in place is CDI. 5/5 BLE. Calves soft, nontender. Palpable pedal pulses. Objective Labs Result Diagrams: 06/15/20 06:05 Labs: Laboratory Results - last 24 hr 06/15/20 06:05 Hgb 10.2 L Hct 30.9 L PFSH Medical History (Updated 06/15/20 @ 07:56 by Lynnette Auguste PA-C) Arthritis Breast cancer (2014) Depression Fusion of spine of cervical region (1996) Fusion of spine of cervical region (2001) Healthy adult HLD (hyperlipidemia) HTN (hypertension) Insomnia Obesity Small bowel obstruction (10/2018) Spondylolisthesis Vertigo Surgical History (Updated 06/07/20 @ 14:16 by Evon Wayne RN) H/O: hysterectomy (1997) History of bunionectomy of both great toes History of exploratory laparotomy Hx of abdominal surgery (10/2018) Hx of repair of right rotator cuff Hx of tubal ligation Social History household members: family and children Smoking Status: Never smoker alcohol intake: never Assessment & Plan Assessment & Plan narrative: -Patient is POD#1 s/p L4-5, L5-S1 TLIF. -Mobilize with PT today. -Continue present pain control. -Encouraged SCDs for DVT prophylaxis as well as ankle pumps. -Will discontinue owen catheter later today if she mobilizes well with PT. -Anticipate discharge to home in the next 1-2 days.
[2020-06-15] MEDS: ATORVASTATIN 20 MG TABLET 40 MG PO (07:56)
[2020-06-15] MEDS: INFLUENZA HD VACCINE 0.7 ML SYRINGE IM (07:56)
[2020-06-15] MEDS: DOCUSATE 100 MG CAPSULE PO ×2 (07:56→20:15)
[2020-06-15] MEDS: EXEMESTANE 25 MG TABLET PO (08:29)
--- NOTE | 2020-06-15 11:15 | PT.IIE ---
Current Diagnoses Spondylolisthesis, lumbosacral region (06/14/20) Other spondylosis with radiculopathy, lumbosacral region (06/14/20) Spinal stenosis, lumbar region without neurogenic claudication (06/14/20) Surgery Performed Operation Date: 06/14/20 07:45 Actual Procedures p L3-4 right hemilaminectomy, L4-5, L5-S1 TLIF w/ posterior instrumentation(Not Applicable) - Дмитрий Ching MD Surgical History (Last Updated 06/07/20 @ 14:16 by Evon Wayne RN) H/O: hysterectomy (1997) History of bunionectomy of both great toes History of exploratory laparotomy Hx of abdominal surgery (10/2018) Hx of repair of right rotator cuff Hx of tubal ligation Medical History (Last Updated 06/15/20 @ 07:56 by Lynnette Auguste PA-C) Arthritis Breast cancer (2014) Depression Fusion of spine of cervical region (1996) Fusion of spine of cervical region (2001) Healthy adult HLD (hyperlipidemia) HTN (hypertension) Insomnia Obesity Small bowel obstruction (10/2018) Spondylolisthesis Vertigo Physical Therapy Inpatient Evaluation/Re-Eval M1 PT/OT-IP Prior Functional Status Start: 06/14/20 15:25 Freq: NEEDED Status: Active Protocol: Document 06/15/20 11:12 DE (Rec: 06/15/20 11:45 DE [id number]) Medical Review Prior Functional Status Medical History Reviewed Yes Diet/Fluid Consistency Regular Communication WNL. No deficits noted. Able to make needs known. Mobility and Gait Modified IND with SPC for community amb and IND for home amb at baseline. Activities of Daily Living and IADL's Pt has difficulty getting dressed including socks and shoes but is able to perform everything IND. Prior Functional Level (Other details) Hx of spina bifida. Pt denies any recent fall hx. The last time pt fell was 2 years ago. Social History Household Members family,children Living Arrangements House Number of Floors (Floors) Two Floors Number of Stairs To Enter/Railing? 2 GOLDEN no railing that is not long enough for FWW. 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 M2 PT-IP Current Condition Start: 06/14/20 15:25 Freq: NEEDED Status: Active Protocol: Document 06/15/20 11:12 DE (Rec: 06/15/20 11:45 DE [id number]) Physical Therapy Current Condition Current Condition Evaluation Date 06/15/20 Treatment Diagnosis L3-4 R hemilaminectomy, L4-S1 TLIF; Difficulty in walking. Onset Date 06/14/20 Precautions Lumbar Precautions Log Roll,No Twisting,Limit Bending,Lifting Restriction of 10 lbs,Gait Belt above Incisional Area M3 PT-IP Subjective Start: 06/14/20 15:25 Freq: NEEDED Status: Active Protocol: Document 06/15/20 11:12 DE (Rec: 06/15/20 11:45 DE [id number]) Subjective Physical Therapy Visit Type Type Initial Evaluation Visit Start Time 09:45 Visit Stop Time 10:23 Total Visit Minutes 38 Notes SPT Fer led session under direct supervision of PT Tammy. Number of CANNERY WORKER Visits 0 Physical Therapy Visit Comments Patient Comments Pt is agreeable to do PT. M4 PT-IP Mobility and Gait Start: 06/14/20 15:25 Freq: NEEDED Status: Active Protocol: Document 06/15/20 11:12 DE (Rec: 06/15/20 11:45 DE [id number]) PT-Transfer Assessment Sit to and From Stand Sit to and from Stand Minimal Assistance,1 Person Assistance,Use of Upper Extremities Equipment Transfer Assistive Device Gait Belt,Front Wheeled Walker Orthotic/Prosthetic Devices or Brace: No Transfers Transfer Destination Chair Transfer Technique Amb with FWW Transfer Ability Level of Assist Minimal Assistance,1 Person Assistance Comments Mobility Comments Pt was sitting in chair upon arrival. Pt completed sit to stand with FWW and 1P min assist. FWW was tipping over as pt pulled to stand up and needed assistance for stabilizing the FWW. Pt then amb ~60 ft x2 with FWW CGA. Pt demonstrated antalgic gait pattern with flexed trunk, decreased stride length, and decreased feet clearance. Pt also demonstrated mild labored breathing during amb and needed to take a seated rest break in w/c after amb ~60 ft. Pt denied any dizziness or lightheadedness. After resting for ~1 min, pt amb back to the room and sat down in the chair with FWW CGA. Call light placed within reach. Gait Assessment Gait Gait Assistance Required: Contact Guard Assist Distance (Feet) 60 Assistive Devices Assistive Device Gait Belt,Front Wheeled Walker Orthotic/Prosthetic Devices or Brace: No Gait Deviations General Gait Pattern Antalgic,Decreased Stride Length,Decreased Feet Clearance,Flexed Trunk Factors Limiting Gait Function Factors Limiting Gait Function Decreased Activity Tolerance, Decreased Strength,Limited Range of Motion,Poor Balance, Respiratory Distress Comments Gait Comments See mobility comments. Stair Climbing Assessment Comments Stair Climbing Comments Not assessed. PT-Balance Assessment Sitting Balance and Reactions Static Sitting Balance Ability Normal Dynamic Sitting Balance Ability Good Standing Balance and Reactions Static Standing Balance Ability Good Dynamic Standing Balance Ability Fair M5 PT-IP Objective Assessments Start: 06/14/20 15:25 Freq: NEEDED Status: Active Protocol: Document 06/15/20 11:12 DE (Rec: 06/15/20 11:45 DE [id number]) Orientation Orientation/Cognition Level of Alertness Alert Orientation Name,Age,Birthday,Month,Date, Year,Day of Week,Place, Situation Language Function Ability No Deficits Noted Safety Awareness Understands Safety Issues Memory Description No Deficits Noted Gross Range of Motion Upper Extremity ROM Assessment Within Functional Limits Lower Extremity ROM Assessment Within Functional Limits Strength Upper Extremity Strength Assessment Within Functional Limits Lower Extremity Strength Assessment Within Functional Limits Coordination Assessment Gross Coordination Gross Coordination WNL Sensation Assessment Sensation Gross Sensation WNL Light Touch Intact Muscle Tone Muscle Tone WNL Yes M6 PT-IP Treatment Start: 06/14/20 15:25 Freq: NEEDED Status: Active Protocol: Document 06/15/20 11:12 DE (Rec: 06/15/20 11:45 DE [id number]) Physical Therapy Treatment Education Education Provided Precautions,Post-Op Packet, Safety Other Treatments Other Treatment Performed Provided education on precautions, safety, plan of care, and role of PT. M7 PT-IP Assessment and Plan Start: 06/14/20 15:25 Freq: NEEDED Status: Active Protocol: Document 06/15/20 11:12 DE (Rec: 06/15/20 11:45 DE [id number]) PT Summary Assessment and Plan Potential Rehabilitation Potential Good Status of Condition at Evaluation Evolving Summary Impairments Pain,ROM,Strength,Balance,Bed Mobility,Transfers,Gait, Activity Tolerance Assessment Summary José Miguel is a 65 yo female POD1 s /p L3-4 R hemilaminectomy and L4-S1 TLIF with hx of spina bifida, breast cancer, R rotator cuff repair, hysterectomy, bunionectomy of B great toes, abdominal surgery, tubal ligation. At baseline, pt was modified IND with SPC for community amb and IND without AD for home amb. Pt had difficulty getting dressed but was IND for all ADLs and IADLs. On evaluation, pt needed CGA for amb and 1P min assist for sit to stand with use of FWW. Pt demonstrated decreased endurance and activity tolerance as she had labored breathing after amb ~60 ft. Pt is not safe yet to d/c home at this time. Pt will need to improve endurance and perform 2 steps without railing before d/c. PT anticipates pt will d /c home with assistance once medically cleared. 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 Days to Meet Goals 5 Frequency of Treatment Frequency Of Treatment Twice a Day Treatment Plan Physical Therapy Treatment Plan Bed Mobility Training,Transfer Training,Gait Training, Therapeutic Exercise,Balance Retraining,Post Op Education, Discharge Planning,Hot or Cold Pack,Neuromuscular Re-ed Recommendations To Nursing Amount of Assist Needed 1 Person Assist Discharge Recommendations PT Discharge Recommendations Home with Assistance Transportation Needs at Discharge Private Vehicle Treatment was provided by Fer Smart, SPT and supervised by Tammy Olivo, PT. I personally reviewed this note and agree with its contents.
--- NOTE | 2020-06-15 13:54 | PC.NURSE ---
Addendum entered by Lisseth Carey R.N. 06/15/20 15:04: Jang catheter removed at 1440. Pt tollerated well. 200mls urine out. Pt encouraged to drink fluids. Original Note: Pt denies pain to her surgical site. She reports some discomfort from sitting. PT has come to move the pt. Jang catheter remains until after this session of PT per pt request. Pt O2 sats are 98-99% on 2L O2 via nasal cannula. Pt has been trialed off O2 and maintains her O2 sats in the upper 90's.
--- NOTE | 2020-06-15 15:56 | PT.IPTN ---
Current Diagnoses Spondylolisthesis, lumbosacral region (06/14/20) Other spondylosis with radiculopathy, lumbosacral region (06/14/20) Spinal stenosis, lumbar region without neurogenic claudication (06/14/20) Surgery Performed Operation Date: 06/14/20 07:45 Actual Procedures p L3-4 right hemilaminectomy, L4-5, L5-S1 TLIF w/ posterior instrumentation(Not Applicable) - Дмитрий Ching MD Physical Therapy Treatment Note M2 PT-IP Current Condition Start: 06/14/20 15:25 Freq: NEEDED Status: Active Protocol: Document 06/15/20 11:12 DE (Rec: 06/15/20 11:45 DE [id number]) Physical Therapy Current Condition Current Condition Evaluation Date 06/15/20 Treatment Diagnosis L3-4 R hemilaminectomy, L4-S1 TLIF; Difficulty in walking. Onset Date 06/14/20 Precautions Lumbar Precautions Log Roll,No Twisting,Limit Bending,Lifting Restriction of 10 lbs,Gait Belt above Incisional Area M3 PT-IP Subjective Start: 06/14/20 15:25 Freq: NEEDED Status: Active Protocol: Document 06/15/20 15:30 DE (Rec: 06/15/20 15:54 DE [id number]) Subjective Physical Therapy Visit Type Type Treatment Note Visit Start Time 13:50 Visit Stop Time 14:26 Total Visit Minutes 36 Notes SPT Fer led session under direct supervision of PT Tammy. Number of PROCESSOR SOLID PROPELLANT Visits 0 Physical Therapy Visit Comments Patient Comments Pt is agreeable to do PT. M4 PT-IP Mobility and Gait Start: 06/14/20 15:25 Freq: NEEDED Status: Active Protocol: Document 06/15/20 15:30 DE (Rec: 06/15/20 15:54 DE [id number]) PT-Transfer Assessment Sit to and From Stand Sit to and from Stand Minimal Assistance,1 Person Assistance,Use of Upper Extremities Equipment Transfer Assistive Device Gait Belt,Front Wheeled Walker Orthotic/Prosthetic Devices or Brace: No Transfers Transfer Destination Bed Transfer Technique Amb with FWW Transfer Ability Level of Assist Minimal Assistance,1 Person Assistance Comments Mobility Comments Pt was sitting in chair upon arrival. Pt completed sit to stand with FWW and 1P min assist for stabilizing the FWW . Pt amb ~55 ft in the hallway with FWW CGA. Pt demonstrated mild labored breathing and requested to sit down and take a break in w/c after amb ~55 ft. Pt demonstrated antalgic gait pattern with flexed trunk , decreased stride length, and decreased feet clearance. Pt was then wheeled to the stairs . Pt performed 1 platform step x2 with FWW CGA. Cues were provided to lead with the stronger leg when ascending and lead with the weaker leg when descending. Pt demonstrated understanding without any confusion. Pt demonstrated slight unsteadiness but did not have any LOB. Pt c/o fatigue and requested to be wheeled back to the room. Pt transferred to R EOB with FWW CGA. Pt then performed logroll to lie supine in bed with CGA and R bedrail. Call light placed within reach. Gait Assessment Gait Gait Assistance Required: Contact Guard Assist Distance (Feet) 55 Assistive Devices Assistive Device Gait Belt,Front Wheeled Walker Orthotic/Prosthetic Devices or Brace: No Gait Deviations General Gait Pattern Antalgic,Decreased Stride Length,Decreased Feet Clearance,Flexed Trunk Factors Limiting Gait Function Factors Limiting Gait Function Decreased Activity Tolerance, Decreased Strength,Limited Range of Motion,Poor Balance, Respiratory Distress Comments Gait Comments See mobility comments. Stair Climbing Assessment Technique/Endurance Stair Climbing Direction Ascend and Descend Stair Climbing Technique Step to Step Number of Steps Climbed 1 Stair Climbing Set # Repetitions (reps) 2 Comments Stair Climbing Comments See mobility comments. PT-Balance Assessment Sitting Balance and Reactions Static Sitting Balance Ability Normal Dynamic Sitting Balance Ability Good Standing Balance and Reactions Static Standing Balance Ability Good Dynamic Standing Balance Ability Fair M5 PT-IP Objective Assessments Start: 06/14/20 15:25 Freq: NEEDED Status: Active Protocol: Document 06/15/20 11:12 DE (Rec: 06/15/20 11:45 DE [id number]) Orientation Orientation/Cognition Level of Alertness Alert Orientation Name,Age,Birthday,Month,Date, Year,Day of Week,Place, Situation Language Function Ability No Deficits Noted Safety Awareness Understands Safety Issues Memory Description No Deficits Noted Gross Range of Motion Upper Extremity ROM Assessment Within Functional Limits Lower Extremity ROM Assessment Within Functional Limits Strength Upper Extremity Strength Assessment Within Functional Limits Lower Extremity Strength Assessment Within Functional Limits Coordination Assessment Gross Coordination Gross Coordination WNL Sensation Assessment Sensation Gross Sensation WNL Light Touch Intact Muscle Tone Muscle Tone WNL Yes M6 PT-IP Treatment Start: 06/14/20 15:25 Freq: NEEDED Status: Active Protocol: Document 06/15/20 15:30 DE (Rec: 06/15/20 15:54 NH [id number]) Physical Therapy Treatment Education Education Provided Precautions,Post-Op Packet, Safety Other Treatments Other Treatment Performed Provided education on precautions, safety, plan of care, and role of PT. M7 PT-IP Assessment and Plan Start: 06/14/20 15:25 Freq: NEEDED Status: Active Protocol: Document 06/15/20 15:30 DE (Rec: 06/15/20 15:54 NH [id number]) PT Summary Assessment and Plan Potential Rehabilitation Potential Good Status of Condition at Evaluation Evolving Summary Impairments Pain,ROM,Strength,Balance,Bed Mobility,Transfers,Gait, Activity Tolerance Assessment Summary Pt demonstrated slightly decreased amb distance from this AM session. Pt requested to sit down and take a break after amb ~55 ft. However, pt performed 1 platform step x2 with FWW CGA. Pt demonstrated slight unsteadiness but was able to perform without any LOB. Pt was fatigued after stair climbing. At home, pt has 2 platform steps that she can use FWW on and 2 steps without railing that will not fit a FWW. Pt will need to perform 2 steps with SPC and RESAWYER without railing before d/c. PT may need to provide CG training depending on how she performs tomorrow AM. PT anticipates pt will d/c home once medically cleared. Goals Bed Mobility Goal Independent Transfer Goal Independent,Front Wheeled Walker Gait Goal Independent,Front Wheel Walker Gait Distance 200 Other Goals Pt will perform 2 steps without railing with SPC and RESAWYER. Days to Meet Goals 5 Frequency of Treatment Frequency Of Treatment Twice a Day Treatment Plan Physical Therapy Treatment Plan Bed Mobility Training,Transfer Training,Gait Training, Therapeutic Exercise,Balance Retraining,Post Op Education, Discharge Planning,Hot or Cold Pack,Neuromuscular Re-ed Recommendations To Nursing Amount of Assist Needed 1 Person Assist Discharge Recommendations PT Discharge Recommendations Home with Assistance Transportation Needs at Discharge Private Vehicle Treatment was provided by Fer Smart, LORNE and supervised by Tammy Olivo, PT. I personally reviewed this note and agree with its contents.
--- NOTE | 2020-06-15 16:17 | OT.IP.EVAL ---
Current Diagnoses Spondylolisthesis, lumbosacral region (06/14/20) Other spondylosis with radiculopathy, lumbosacral region (06/14/20) Spinal stenosis, lumbar region without neurogenic claudication (06/14/20) Surgery Performed Operation Date: 06/14/20 07:45 Actual Procedures p L3-4 right hemilaminectomy, L4-5, L5-S1 TLIF w/ posterior instrumentation(Not Applicable) - Дмитрий Ching MD Past Medical History (Last Updated 06/15/20 @ 07:56 by Lynnette Auguste PA-C) Arthritis Breast cancer (2014) Depression Fusion of spine of cervical region (1996) Fusion of spine of cervical region (2001) Healthy adult HLD (hyperlipidemia) HTN (hypertension) Insomnia Obesity Small bowel obstruction (10/2018) Spondylolisthesis Vertigo Surgical History (Last Updated 06/07/20 @ 14:16 by Evon Wayne RN) H/O: hysterectomy (1997) History of bunionectomy of both great toes History of exploratory laparotomy Hx of abdominal surgery (10/2018) Hx of repair of right rotator cuff Hx of tubal ligation Occupational Therapy Inpatient Evaluation/Re-Eval M1 PT/OT-IP Prior Functional Status Start: 06/15/20 18:55 Freq: NEEDED Status: Active Protocol: Document 06/15/20 15:32 [facility] (Rec: 06/15/20 19:10 [facility] [id number]) Medical Review Prior Functional Status Medical History Reviewed Yes Diet/Fluid Consistency Regular Communication WNL. No deficits noted. Able to make needs known. Mobility and Gait Modified IND with SPC for community amb and IND for home amb at baseline. Activities of Daily Living and IADL's Pt has difficulty getting dressed including socks and shoes but is able to perform everything IND. Prior Functional Level (Other details) Hx of spina bifida. Pt denies any recent fall hx. The last time pt fell was 2 years ago. Social History Household Members family,children Living Arrangements House Number of Floors (Floors) Two Floors Number of Stairs To Enter/Railing? 2 GOLDEN no railing that is not long enough for FWW. Home Environment Standard Height Toilet,Walk in Shower,Tub/Shower Home Equipment Front Wheel Walker,Straight Cane,Crutches,Raised Toilet Seat Without Armrests,Shower Seat with Backrest,Hand Held Shower Employment Status [employer] Employed Additional Social History Comment Pt lives with daughter, son-in -law, and granddaughter who will be available to assist at home if needed. M2 OT-IP Current Condition Start: 06/15/20 18:55 Freq: Status: Active Protocol: Document 06/15/20 15:32 [facility] (Rec: 06/15/20 19:10 [facility] [id number]) Occupational Therapy Current Condition Current Condition Evaluation Date 06/15/20 Treatment Diagnosis S/p L3-4 hemilaminectomy, L4- S1 TLIF Diagnosis Onset Date 06/14/20 Post Operative Precautions Lumbar Precautions Log Roll,No Twisting,Limit Bending,Lifting Restriction of 10 lbs,Gait Belt above Incisional Area M3 OT- IP Subjective and Pain Start: 06/15/20 18:55 Freq: Status: Active Protocol: Document 06/15/20 15:32 [facility] (Rec: 06/15/20 19:10 [facility] [id number]) OT- Subjective Occupational Therapy Visit Type Type Initial Evaluation Visit Start Time 15:32 Visit Stop Time 16:17 Total Visit Minutes 45 Occupational Therapy Visit Comments Patient Comments Pt willing to get up for OT eval. Pt's daughter came in at the end of the session. Patient/Caregiver Goals to go home OT Pain Assessment Pain When Pain Assessed At Rest Pain Present Pain Present Pain Reported Location Back Intensity 4 M4 OT- IP ADL's Start: 06/15/20 18:55 Freq: Status: Active Protocol: Document 06/15/20 15:32 [facility] (Rec: 06/15/20 19:10 [facility] [id number]) OT [id number] Comments OT Self-Feeding Comments not at meal time OT ADL-Grooming General Evaluation Grooming Ability Standby Assistance Areas Needing Assistance Retrieving/Set-up of Grooming Items Comments OT Grooming Comments Pt able to stand at the sink wi FWW for grooming needs. OT ADL-Oral Care General Eval Oral Care Ability Standby Assistance Comments Oral Care Comments Educated to spit into a cup to best follow her back precautions. OT ADL-Dressing General Eval Lower Body Dressing Ability Maximum Assistance Areas Needing Assistance Socks Comments OT Dressing Comments Pt states that her daughter will just assist with all needs as needed. OT ADL-Toileting General Evaluation Toileting Ability Moderate Assistance Areas Needing Assistance Perform Perineal Hygiene Comments OT Toileting Comments Pt not able to reach for completeness when simulated and will need assist for hygiene after bowel movement. Wipes suggested and daughter agreed will assist. OT ADL-Bathing Comments OT Bathing Comments Pt not wanting to shower today . M5 OT- IP IADL's Start: 06/15/20 18:55 Freq: Status: Active Protocol: Document 06/15/20 15:32 [facility] (Rec: 06/15/20 19:10 [facility] [id number]) OT-Instrumental Activities of Daily Living Home Safety Awareness Home Safety Comments Pt has supportive family that marquise be able to assist for all her needs. M6 OT- IP Functional Cognition Start: 06/15/20 18:55 Freq: Status: Active Protocol: Document 06/15/20 15:32 [facility] (Rec: 06/15/20 19:10 [facility] [id number]) Cognitive Factors Limiting Selfcare Function Cognitive Ability Level of Alertness Alert Patient Orientation Name,Place,Situation Attention Span Ability Capable of Focused Attention, Capable of Sustained Attention Ability to Follow Commands Able to Follow One Step Commands Safety Awareness Underestimates Need for Assistance Cognitive Comments Cognitive Assessment Comments Pt able to stand all her back precautions but needing cues to help incorporate during ADl needs. OT- Vision and Hearing OT- Hearing Assessment OT- Hearing Assessment WFL OT- Vision Assessment Visual Acuity Glasses All The Time M7 OT- IP Mobility and Balance Start: 06/15/20 18:55 Freq: Status: Active Protocol: Document 06/15/20 15:32 [facility] (Rec: 06/15/20 19:10 [facility] [id number]) OT- Bed Mobility Assessment Rolling Type of Rolling Roll to Right Level of Assistance Standby Assistance,Bedrails Supine to Sit Supine to Sit Assist Standby Assistance,1 Person Assistance,Bedrails OT-Transfer Assessment Sit to and From Stand Sit to and from Stand Contact Guard Assistance Transfers Transfer Ability Contact Guard Assistance Technique Transfer Destination Bed,Chair,Toilet Transfer Technique Stand Step Pivot Devices Transfer Assistive Devices Gait Belt,Front Wheeled Walker Comments Mobility Comments Pt SBA and able to do log rolling after one vc. Pt tends to grab FWW to stand and vc to push up from the bed. Pt's o2 on 2.5L at 99%. Tried on RA and down to 92% and pt states a little sleepy. Nursing notified and states okay to try 2l on the pt for now. Pt and daughter wanting to go home today , however per PT still needing to do stairs , has not used the toilet yet and still on O2. OT- Balance Assessment Sitting Balance and Reactions Static Sitting Balance Ability Good Standing Balance and Reactions Static Standing Balance Ability Fair M8 OT- IP Objective Assessments Start: 06/15/20 18:55 Freq: Status: Active Protocol: Document 06/15/20 15:32 [facility] (Rec: 06/15/20 19:10 [facility] [id number]) OT Gross Range of Motion Upper Extremity Range of Motion Assessment Within Functional Limits OT-Muscle Tone Assessment Muscle Tone WNL Yes M9 OT- IP Assessment and Plan Start: 06/15/20 18:55 Freq: Status: Active Protocol: Document 06/15/20 15:32 [facility] (Rec: 06/15/20 19:10 [facility] [id number]) OT Summary Assessment and Plan Potential Rehabilitation Potential Good Analytic Complexity at Evaluation Low Summary OT Impairments Pain,Balance,Functional Cognition,Functional Mobility, Dressing,Toileting,Bathing, Toilet Transfers,Shower Transfers,Activity Tolerance Progress Towards Goals Progressing Toward Goals Assessment Summary Pt low complexity after L3-4 hemilaminectomy and L4-S1 TLIF and anxious to go home today. However pt still on O2, has not used the toilet yet and per PT still needing to do stair training with family. Caregiver training set -up for stairs at 2pm tomorrow. Pt has a supportive family that will be there 29/01 to assist pt with all her needs. Pt to go home when medically stable. Goals Grooming Goal Independent Dressing Goal Minimal Assistance Toileting Goal Minimal Assistance Bathing Goal Minimal Assistance Toilet Transfer Goal Independent Shower Transfer Goal Independent Patient/Caregiver Education Goal Demonstrate Post-Op Precautions,Caregiver Independent Assisting Patient Days to Meet Goals 2 Frequency of Treatment Frequency Of Treatment Once a Day Treatment Plan OT Treatment Plan ADL Training,Functional Cognition Training,Functional Mobility,Patient/Family Education,Discharge Planning Other Treatment Recommendations and Next Shower Treatment Focus Discharge Recommendations OT Discharge Recommendations Home with Assistance Transportation Needs at Discharge Private Vehicle
--- NOTE | 2020-06-15 16:38 | CM.DANOTE ---
DCP/Assessment: Reviewed chart. Patient is a 65yr old female admitted [facility] surgery performed on 06-14-[address] Ching. PCP listed is Patria Aiken. Primary payor is 1)[facility] out of [facility]. Met with patient explained CM/SW role. Patient reports that she hopes to d/c home tomorrow 06-16-20. Patient resides with daughter and does not anticipate any d/c planning needs. Patient does have and uses cane on occasion. At baseline, patient works and drives. P: Home with supportive daughter when stable. JC Liu Discharge Planning/Care Management CM Discharge Assessment Start: 06/15/20 16:35 Freq: Status: Active Protocol: Document 06/15/20 16:35 [facility] (Rec: 06/15/20 16:38 [facility] [id number]) Discharge Planning Assessment Assigned Facility Engineer JC Liu Contact Information Roz oDe # [phone] Advance Directives? No Advance Directives on File No History Provided By Patient Prior Living Arrangements House Household Members family,children Type of transporation used prior to Drives own vehicle admit Independent with ADL's Yes Is patient alert and oriented? Yes Caregiver for Another No DME Already Rented / Owned Cane Barriers to Discharge No Discharge Plan Home Transportation Arrangement Family can provide transport. Whiteboard Updated in Patient Room with Yes name and ext. # of Facility Engineer Review Status In Process Next Review Type Continued Stay Review Pre-Anesthesia Assessment Start: 06/07/20 14:00 Freq: Status: Active Protocol: Document 06/07/20 14:00 [facility] (Rec: 06/07/20 14:50 [facility] [id number]) Pre-Anesthesia Assessment Patient Information Reviewed Via Phone Assessment Assessment Completed With Patient Diagnostic Results BMP/CMP,CBC,EKG Comment Labs/EKG @ [facility], COVID screen @ [facility] 06/12/20 Primary Care Provider Patria Aiken Seen Specialist in Last 12 Months Yes Specialist Seen Oncologist,Orthopedist Comment PCP visit 08/07/19 scanned Primary Language Indian Preferred Language Indian Residential Youth Counselor Required No Height 154.94 cm Weight 92.533 kg Body Mass Index (BMI) 38.5 Hearing Ability Normal Visual Assist Glasses Dentition Type Teeth, Natural Present Barriers to Learning None Hx Anesthesia Reactions Yes: PONV Hx Family Anesthesia Reaction Yes: Daughter PONV, agitation, restlessness Hx Malignant Hyperthermia No Hx Blood Transfusions No Anesthesia Review Requested No alcohol intake former Alcohol Intake Frequency Other: Last drink in 2000 Smoking Status Never smoker Substance Use Type does not use Pain Present Pain Reported Musculoskeletal Symptoms Abnormal Gait,Back Pain, Difficulty Walking,Muscle Cramps,Numbness,Radiating Pain into Limb,Tingling History of Falling (Recent or History of Yes ) Patient is completely paralyzed or No completely immobile Prosthesis or Orthotic Device Cane,Front Wheel Walker Mental Status Oriented to own ability Is patient on oxygen? No Does patient have AUGUST/SOB No Hx Sleep Apnea No Currently Taking a Beta Roland No Can You Climb a Flight of Stairs Without No SOB Hx Chest Pain No Hx SOB No Hx Syncope or Dizziness Yes: Vertigo Anti-Coagulant Therapy No Has a Marine Erector No Cardiac Testing No Hx Pacemaker/ICD No Pacemaker Rep Required? No Cardiac Clearance Received Not Applicable Diet Type At Home Regular dysphagia No Gastrointestinal Symptoms Constipation,Reflux Bladder Pattern Frequency,Nocturia,Urgency Urinary Catheter Present No Hx Urinary Self Catheterization No Diabetes No Patient No Lactating No Hx Drug Resistant Organism No Presence of External or Internal Medical Yes: Cervical hardware, toes Devices Have you had any close contact with No someone diagnosed with COVID-19? Marital Status Lives With family,children Prior Living Arrangements House Number of Floors (Floors) One Floor Support System Child/Children Does the Patient Have Assistance After Yes Surgery Patient Discharge Plan Description Return Home Comment Pt advised 3-4 day length of stay per surgeon Feels Safe in Current Environment Yes Been Physically Hurt or Threatened By a No Person in Current Environment Do you have thoughts of harming yourself None or others? Are you currently considering suicide? No Do you have a plan to hurt yourself or No Plan others? Do You Have Any Spiritual Beliefs That No May Affect Your HC Choices? Do You Have Any Cultural Practices That No May Affect Your HC Choices? Comment Moravian Who Can We Speak to About Patient's Care Family, friends Identifying Code for Release of Patient Chilson Information Health Care Proxy/Next of Kin Roz Doe (daughter) Health Care Proxy Phone Number [phone] Emergency Contact Name Roz Doe (daughter) Emergency Contact Phone Number [phone] Advance Directives? No Advance Directives on File No Power of Customer Order Clerk No PAC Instructions Durable medical equipment, Medications to take/avoid, Nasal antibiotic,No ETOH/ petroleum product on skin DOS, Post-op transportation,Pre- surgical wash,Sturdy shoes/ comfortable clothes,Do not bring valuables and remove jewelry
[2020-06-15] MEDS: CYCLOBENZAPRINE 5 MG TABLET PO (18:42)
[2020-06-15] MEDS: ACETAMINOPHEN 325 MG TABLET 650 MG PO (18:42)
[2020-06-15] MEDS: METOPROLOL ER 50 MG TABLET PO (20:15)
[2020-06-15] MEDS: SENNOSIDES 8.6 MG TABLET 17.2 MG PO (20:15)
[2020-06-16] VITALS: BP 109/57; PULSE 67; RESP 16; TEMP 36.6; O2SAT 95
--- NOTE | 2020-06-16 00:04 | PC.NURSE ---
SHIFT Report received, care assumed 1530. Up in chair. VSS. Pain controlled on PO meds. Moving well with walker and 1-person assist. Up to bathroom, voided. When questions asked of patient, she tends to look to daughter rather than answering for herself. However, she does seem comfortable and to be progressing appropriately.
[2020-06-16 05:00] VITALS: BP 111/49; PULSE 66; RESP 18; TEMP 36.8; O2SAT 94
[2020-06-16] MEDS: OXYCODONE IR 5 MG TABLET 10 MG PO (05:03)
--- NOTE | 2020-06-16 07:48 | PM.DS.1 ---
History of Present Illness History of Present Illness Date Patient Seen: 06/16/20 Time Patient Seen: 07:48 Chief complaint: INPT Narrative: Patient failed multiple conservative management with worsening pain weakness and numbness in her lower extremity. Patient has been having difficulty performing activity of daily living. After discussing risks benefits of treatment options, patient elected proceed with surgery. Discharge Providers Provider Date of admission: 06/14/20 06:22 Discharge Date: 06/16/20 Primary care physician: Patria Aiken DO Consults: 06/14/20 13:12 Consult to Occupational Therapy Evaluate & Treat Comment: Physician Instructions: Evaluate and treat Consult to Physical Therapy Evaluate & Treat Comment: Physician Instructions: Evaluate and Treat 06/14/20 13:24 Consult to Respiratory Therapy Evaluate & Treat Comment: Physician Instructions: Evaluate and treat Discharge provider: Nargis Banks PA-C Summary Hospital Course Discharge Diagnosis: s/p TLIF Thyroid disease Spina bifida Hyperlipidemia History of breast cancer Hospital Course: José Miguel was admitted for L4-5, L5-S1 TLIF with Dr. Ching. She did require O2 throughout her stay. Her pain was well controlled. She was eating and voiding without difficulty or assistance. She mobilized with PT safely. Exam Vital Signs (past 8 hours): - 06/16/20 00:00 06/16/20 05:00 Temperature 97.9 F 98.3 F Pulse Rate 67 66 Respiratory Rate 16 18 Blood Pressure 109/57 L 111/49 L Pulse Oximetry 95 94 Oxygen Delivery Method Nasal Cannula Oxygen Flow Rate 1 Narrative Exam Narrative: Patient sitting in bedside chair in NAD. She is alert and oriented X3. Calves are soft, compressible, and nontender bilaterally. She is able to actively dorsiflex and plantarflex. No numbness or tingling down the legs. No complaints this AM. Objective Labs Result Diagrams: 06/15/20 06:05 [facility] Medical History (Updated 06/15/20 @ 07:56 by Lynnette Auguste PA-C) Arthritis Breast cancer (2014) Depression Fusion of spine of cervical region (1996) Fusion of spine of cervical region (2001) Healthy adult HLD (hyperlipidemia) HTN (hypertension) Insomnia Obesity Small bowel obstruction (10/2018) Spondylolisthesis Vertigo Surgical History (Updated 06/07/20 @ 14:16 by Evon Wayne RN) H/O: hysterectomy (1997) History of bunionectomy of both great toes History of exploratory laparotomy Hx of abdominal surgery (10/2018) Hx of repair of right rotator cuff Hx of tubal ligation Social History household members: family and children Smoking Status: Never smoker alcohol intake: never Discharge Plan Discharge Plan Patient Disposition: Home Discharge orders & Medications Prescriptions: New docusate sodium [DOK] 100 mg Capsule 100 mg PO BID Qty: 60 RF: 0 oxycodone 5 mg tablet 5 mg PO Q4-6H PRN (Reason: pain) Qty: 50 RF: 0 Continued atorvastatin 40 mg Tablet 40 mg PO DAILY RF: 0 metoprolol succinate 50 mg Tablet Extended Release 24 Hr 50 mg PO BEDTIME RF: 0 exemestane 25 mg Tablet 25 mg PO Q OTHER DAY RF: 0 cyclobenzaprine 5 mg tablet 5 mg PO TID PRN (Reason: muscle spasm) Qty: 10 RF: 0 acetaminophen 325 mg Capsule 650 mg PO BEDTIME RF: 0 Follow up/Referrals: Patria Aiken DO [Primary Care Provider] - Discharge Data Primary Care Provider: Patira Aiken
[2020-06-16 08:00] VITALS: BP 130/68; PULSE 68; RESP 16; TEMP 36.5; O2SAT 94
[2020-06-16] MEDS: DOCUSATE 100 MG CAPSULE PO (08:23)
[2020-06-16] MEDS: ACETAMINOPHEN 325 MG TABLET 650 MG PO ×2 (08:23→13:25)
[2020-06-16] MEDS: ATORVASTATIN 20 MG TABLET 40 MG PO (08:23)
--- NOTE | 2020-06-16 10:44 | PT.IPTN ---
Current Diagnoses Spondylolisthesis, lumbosacral region (06/14/20) Other spondylosis with radiculopathy, lumbosacral region (06/14/20) Spinal stenosis, lumbar region without neurogenic claudication (06/14/20) Surgery Performed Operation Date: 06/14/20 07:45 Actual Procedures p L3-4 right hemilaminectomy, L4-5, L5-S1 TLIF w/ posterior instrumentation(Not Applicable) - Дмитрий Ching MD Physical Therapy Treatment Note M2 PT-IP Current Condition Start: 06/14/20 15:25 Freq: NEEDED Status: Active Protocol: Document 06/15/20 11:12 DE (Rec: 06/15/20 11:45 DE [id number]) Physical Therapy Current Condition Current Condition Evaluation Date 06/15/20 Treatment Diagnosis L3-4 R hemilaminectomy, L4-S1 TLIF; Difficulty in walking. Onset Date 06/14/20 Precautions Lumbar Precautions Log Roll,No Twisting,Limit Bending,Lifting Restriction of 10 lbs,Gait Belt above Incisional Area M3 PT-IP Subjective Start: 06/14/20 15:25 Freq: NEEDED Status: Active Protocol: Document 06/16/20 10:06 SP (Rec: 06/16/20 12:47 SP [id number]) Subjective Physical Therapy Visit Type Type Treatment Note Visit Start Time 10:06 Visit Stop Time 10:44 Total Visit Minutes 38 Notes JOSE Norris attended tx session and supported PICTURE ENGRAVER Irena with equipment as needed. Number of PICTURE ENGRAVER Visits 1 Physical Therapy Visit Comments Patient Comments Pt agreeable to working with therapy. Therapy Pain Assessment Pain When Pain Assessed At Rest Location Back Intensity 3 Scale Used 1/10 at rest, 3/10 during mobility Pain Behaviors Facial Grimacing Pain Management Techniques Re-positioning,Timing of Activity with Medications M4 PT-IP Mobility and Gait Start: 06/14/20 15:25 Freq: NEEDED Status: Active Protocol: Document 06/16/20 10:06 SP (Rec: 06/16/20 12:47 SP [id number]) PT-Bed Mobility Assessment Rolling Type of Rolling Log Rolling,Roll to Left Level of Assist Minimal Assistance,1 Person Assistance Sit to Supine Sit to Supine Contact Guard Assistance, Minimal Assistance,1 Person Assistance Scooting Scooting Up and Down in Bed Standby Assistance PT-Transfer Assessment Sit to and From Stand Sit to and from Stand Contact Guard Assistance,1 Person Assistance,Use of Upper Extremities Equipment Transfer Assistive Device Gait Belt,Front Wheeled Walker Orthotic/Prosthetic Devices or Brace: No Transfers Transfer Destination Bed,Toilet,Wheelchair Transfer Technique pt ambulated using FWW Transfer Ability Level of Assist Contact Guard Assistance,1 Person Assistance,Use of Upper Extremities Comments Mobility Comments Pt was seated in chair when arrived requesting to use the bathroom. Pt's vitals assessed in sitting pre mobiltiy: BP 132/68 HR 73 93% on supplimental O2 1L and on room air at rest. Sit> stand CGA with cuing for pushing with BUE from chair. Ambulated using FWW chair to bathroom toilet approx 10 ft CGA, good placement of fWW and use of grab bar (has vanity/counter on R at home assist her) slow descent CGA to sit safely onto toilet. Nursing arrived during tx to report ok to remove nasal canula. PICTURE ENGRAVER gave feedback that maintaining low 90s during mobility on room air. Pt urinated considerable amt, required increased time to complete and is able to complete all pericare needs, required assist for donning brief/ pullups in sitting. Sit>stand CGA using grab bar and FWW, ambulated to sink CGA with good fWW positioning approx 15 ft, static stand at sink with one hand and or body contact leaning against sink for balance while washing hands for stability. Pt requested sitting rest at EOB before leaving room to assess further gait and stair mgt. Pt walked sink to R EOB, required cuing for reaching back prior to sit for safety, CGA stable. Sat for approx 5 min for tiring recovery. Sit> stand with cuing for pushing from bed, good back posture, good recall of precautions, ambulated to hallway further distance approx 40 ft with w/c follow and requested sitting due to decreased strength and activity tolerance. Pt was wheeled to [facility] stair case. Sit to stand CGA using FWW. Ascend/descend 3 stairs step to patterning B QC, CGA- 5% A for stability balance and 1 QC stability. See stair mobility for details. Pt requested to sit back in chair usign fWW for mobilty 3 ft, cued for safety hand placement to sit in chair CGA. Pt wheeled to room and SPT w/c> bed using FWW cuign for hand placement safety. Sitting to supine CG at trunk, Min A for LLE into bed while in sidelying then CGA log roll onto back then cuing for self centering LE and upper body. PICTURE ENGRAVER assisted for pillow placement x3 under BLE and 2 at head per patient request for comfort. Pt had call light, bed armed and all needs in reach before left. Pt reported pain increased from 1/10 to 3/10 during mobility with good tolerance just weak and tired. Pt agreed to complete CGT with daughter in pm including stair mgt for safety pre DC. Gait Assessment Gait Gait Assistance Required: Contact Guard Assist,1 Person Assist Distance (Feet) 20 Able to Maintain Weight Bearing Status Yes During Gait Assistive Devices Assistive Device Gait Belt,Front Wheeled Walker Orthotic/Prosthetic Devices or Brace: No Gait Deviations General Gait Pattern Antalgic,Decreased Stride Length,Decreased Feet Clearance,Flexed Trunk Factors Limiting Gait Function Factors Limiting Gait Function Decreased Activity Tolerance, Decreased Strength,Limited Range of Motion,Pain,Poor Balance,Poor Safety Awareness, Respiratory Distress Comments Gait Comments See mobility comments for details. Stair Climbing Assessment Evaluation Level of Assist On Stairs Contact Guard Assistance, Minimal Assistance,1 Person Assistance Devices Stair Climbing Assistive Devices Small Base Quad Cane,Large Base Quad Cane Technique/Endurance Stair Climbing Direction Ascend and Descend Stair Climbing Technique Step to Step Number of Steps Climbed 3 Stair Climbing Set # Repetitions (reps) 1 Comments Stair Climbing Comments Pt completed 3 stairs consecutively using LBQC on L and SBQC on R to assimulate 2 quad canes at home daughter has, required cuing for safety foot placement with mask donned and stabilizing SBQC due to unsteady while providing CG- 5 % A for trunk stability. Daughter showed pic of home enterance 2 sets consecutive steps no rails with platform top 2 sets with walkway between needs to complete. PT-Balance Assessment Sitting Balance and Reactions Static Sitting Balance Ability Normal Dynamic Sitting Balance Ability Good Standing Balance and Reactions Static Standing Balance Ability Good Dynamic Standing Balance Ability Fair M5 PT-IP Objective Assessments Start: 06/14/20 15:25 Freq: NEEDED Status: Active Protocol: Document 06/15/20 11:12 DE (Rec: 06/15/20 11:45 DE [id number]) Orientation Orientation/Cognition Level of Alertness Alert Orientation Name,Age,Birthday,Month,Date, Year,Day of Week,Place, Situation Language Function Ability No Deficits Noted Safety Awareness Understands Safety Issues Memory Description No Deficits Noted Gross Range of Motion Upper Extremity ROM Assessment Within Functional Limits Lower Extremity ROM Assessment Within Functional Limits Strength Upper Extremity Strength Assessment Within Functional Limits Lower Extremity Strength Assessment Within Functional Limits Coordination Assessment Gross Coordination Gross Coordination WNL Sensation Assessment Sensation Gross Sensation WNL Light Touch Intact Muscle Tone Muscle Tone WNL Yes M6 PT-IP Treatment Start: 06/14/20 15:25 Freq: NEEDED Status: Active Protocol: Document 06/16/20 10:06 SP (Rec: 06/16/20 12:47 SP [id number]) Physical Therapy Treatment Education Education Provided Precautions,Post-Op Packet, Safety Other Treatments Other Treatment Performed Provided education on precautions, safety, plan of care, and role of therapy. M7 PT-IP Assessment and Plan Start: 06/14/20 15:25 Freq: NEEDED Status: Active Protocol: Document 06/16/20 10:06 SP (Rec: 06/16/20 12:47 SP [id number]) PT Summary Assessment and Plan Potential Rehabilitation Potential Good Status of Condition at Evaluation Evolving Summary Impairments Pain,ROM,Strength,Balance,Bed Mobility,Transfers,Gait, Activity Tolerance Progress Towards Goals Progressing Toward Goals,Slow Progress due to Pain,Slow Progress due to Activity Tolerance Assessment Summary Pt required CGA to low Min A during mobility and FWW for standing support. CG-5%A during stair mgt using B QC with cuing for patterning and stability. Will complete further caregiver training in pm with daughter. Pt hopes to return home with family to assist her. Will assess progress pm tx and recommending DC home with family to assist her, HHPT. Goals Bed Mobility Goal Independent Transfer Goal Independent,Front Wheeled Walker Gait Goal Independent,Front Wheel Walker Gait Distance 200 Other Goals Pt will perform 2 steps without railing with SPC and WELDING MACHINE OPERATOR THERMIT. Days to Meet Goals 5 Frequency of Treatment Frequency Of Treatment Twice a Day Treatment Plan Physical Therapy Treatment Plan Bed Mobility Training,Transfer Training,Gait Training, Therapeutic Exercise,Balance Retraining,Post Op Education, Discharge Planning,Hot or Cold Pack,Neuromuscular Re-ed Recommendations To Nursing Amount of Assist Needed 1 Person Assist Discharge Recommendations PT Discharge Recommendations Home with Assistance Transportation Needs at Discharge Private Vehicle
[2020-06-16 11:47] VITALS: BP 139/75; PULSE 68; RESP 16; TEMP 37; O2SAT 96
--- NOTE | 2020-06-16 12:09 | PC.NURSE ---
Addendum entered by Eloise Jarvis R.N. 06/16/20 14:11: Patient states that she feels better after vistaril given for cramp to her l.casey. She is sleepy but easily arousable. Addendum entered by Eloise Jarvis R.N. 06/16/20 13:36: Patient complained of cramp to l.leg. Given vistaril and tylenol for discomfort. Back to bed and resting comfortably. Original Note: Patient given tylenol for pain, helpful. She is sleepy but awake. Dressing will be changed before she goes home later today. She denies numbness or tingling. Resting comfortably. Denies numbness or tingling in extremities and cms wnl and ppx2.
[2020-06-16] MEDS: hydrOXYzine pamoate 25 MG CAPSULE PO (13:27)
--- NOTE | 2020-06-16 13:33 | OT.IPNOTE ---
PT not wanting to shower at this time and wanting to wait until her daughter comes back in order to get dressed. Pt's daughter per yesterday's training has good understanding and safety to be able to assist pt for all OT needs.
--- NOTE | 2020-06-16 15:20 | PT.IPTN ---
Current Diagnoses Spondylolisthesis, lumbosacral region (06/14/20) Other spondylosis with radiculopathy, lumbosacral region (06/14/20) Spinal stenosis, lumbar region without neurogenic claudication (06/14/20) Surgery Performed Operation Date: 06/14/20 07:45 Actual Procedures p L3-4 right hemilaminectomy, L4-5, L5-S1 TLIF w/ posterior instrumentation(Not Applicable) - Дмитрий Ching MD Physical Therapy Treatment Note M2 PT-IP Current Condition Start: 06/14/20 15:25 Freq: NEEDED Status: Active Protocol: Document 06/15/20 11:12 DE (Rec: 06/15/20 11:45 DE [id number]) Physical Therapy Current Condition Current Condition Evaluation Date 06/15/20 Treatment Diagnosis L3-4 R hemilaminectomy, L4-S1 TLIF; Difficulty in walking. Onset Date 06/14/20 Precautions Lumbar Precautions Log Roll,No Twisting,Limit Bending,Lifting Restriction of 10 lbs,Gait Belt above Incisional Area M3 PT-IP Subjective Start: 06/14/20 15:25 Freq: NEEDED Status: Active Protocol: Document 06/16/20 14:45 SP (Rec: 06/16/20 16:06 SP [email or web address]) Subjective Physical Therapy Visit Type Type Treatment Note Visit Start Time 14:45 Visit Stop Time 15:20 Total Visit Minutes 35 Notes JOSE Norris attended tx. Daughter assisted patient throughout tx and complete caregiver training. Number of BAKERY TECHNICIAN Visits 2 Physical Therapy Visit Comments Patient Comments Pt agreeable to working with therapy. Patient Goals return home with family to assist her. Therapy Pain Assessment Pain When Pain Assessed At Rest Location L HS, L quad, L lat gastroc, B tingling plantar feet Intensity 10 Scale Used at rest and with mob, tingling went away during mob Description Acute,Cramping,Spasm,Tingling Pain Behaviors Facial Grimacing,Restlessness, Wincing Pain Management Techniques Modification of Treatment,Re- positioning,Timing of Activity with Medications M4 PT-IP Mobility and Gait Start: 06/14/20 15:25 Freq: NEEDED Status: Active Protocol: Document 06/16/20 14:45 SP (Rec: 06/16/20 16:06 SP [email or web address]) PT-Bed Mobility Assessment Rolling Type of Rolling Log Rolling,Roll to Right Level of Assist Contact Guard Assistance,1 Person Assistance Supine to Sit Supine to Sit Moderate Assistance,1 Person Assistance Scooting Scooting to Edge of Bed Standby Assistance PT-Transfer Assessment Sit to and From Stand Sit to and from Stand Contact Guard Assistance,1 Person Assistance,Use of Upper Extremities Equipment Transfer Assistive Device Gait Belt,Front Wheeled Walker Orthotic/Prosthetic Devices or Brace: No Transfers Transfer Destination Chair,Toilet Transfer Technique pt ambulated using FWW Transfer Ability Level of Assist Contact Guard Assistance,1 Person Assistance,Use of Upper Extremities Comments Mobility Comments Pt was inclined in bed when arrived, daughter Roz Doe in room massaging her L HS when arrived due to report of increased 10/10 pain and stated tingling in B plantar surface of feet and concerned because didn't have it earlier today. BAKERY TECHNICIAN assisted manual STMs to L HS, L quad, L lateral gastroc and instruction of L sciatic nerve flossing (towel behind lower thigh with Min A support hip/ knee flexion into L knee flexion to tolerance then slow ankle pump) to possibly assist decrease pain with no improvement so stopped, cued ankle pumps for circulation of which she had been doing but not seeing improvements. R LR SBA, R sidelying to sitting Mod A x1 to pull from while providing CG trunk transitioning to sitting, scoot to EOB SBA, daughter donned gait belt, sit> stand CGA using FWW, ambulated to from bed bathroom approx 10 ft and pivot turn using FWW CGA then used grab bar for slow descent to toilet. Pt complete pericare herself in sitting, BAKERY TECHNICIAN discussed with Roz may need assist her if needed if has BM in the future with verbal awareness but that there is a adaptive tool can get for self performance. Sit> stand and ambulated to chair approx 8 ft usign fWW and good hand placement to slow sit into chair. All physical assist needed provided by daughter. Pt reported tingling in B feet gone. Pt declined further distance gait or stair mgt due to pain L HS region. Nurse entered room to discusse discharge, provided report of pain and decrease activity tolerance due to pain. BAKERY TECHNICIAN discussed with daughter how patient sequencially mobilized 3 stairs in am using B QC's with CG- 5% A and not concerned that absolutely needed pre DC today and daughter and patient were confident will do fine when got home. BAKERY TECHNICIAN recommended to have chairs along pathway in case needed for decreased activity tolerance knowing only walked 8 ft x2 during tx this pm and max 30 ft in am with w/c follow and required for sitted rest. Both understood and will have chairs ready when goes home. harriet Courtney also discussed that the vechicle that was available is little higher and has a running board. BAKERY TECHNICIAN discussed sequencing for backing up to small SUV and strong leg stepping back onto running board with support front knee wtih daughter's body while patient uses over head handle to self lift into seat and assist of daughter. BAKERY TECHNICIAN asked if needed help but both declined felt could do. Pt was seated in chair with call light, daughter in room and all needs in reach before left. Gait Assessment Gait Gait Assistance Required: Contact Guard Assist,1 Person Assist Distance (Feet) 10 Able to Maintain Weight Bearing Status Yes During Gait Assistive Devices Assistive Device Gait Belt,Front Wheeled Walker Orthotic/Prosthetic Devices or Brace: No Gait Deviations General Gait Pattern Antalgic,Decreased Stride Length,Decreased Feet Clearance,Flexed Trunk,Narrow Based Gait Factors Limiting Gait Function Factors Limiting Gait Function Decreased Activity Tolerance, Decreased Strength,Limited Range of Motion,Pain,Poor Balance,Poor Safety Awareness, Respiratory Distress Comments Gait Comments See mobility comments for details. Stair Climbing Assessment Comments Stair Climbing Comments Did not complete this pm due to L leg pain, see mobility comments for details. PT-Balance Assessment Sitting Balance and Reactions Static Sitting Balance Ability Normal Dynamic Sitting Balance Ability Good Standing Balance and Reactions Static Standing Balance Ability Good Dynamic Standing Balance Ability Fair Device Used FWW M5 PT-IP Objective Assessments Start: 06/14/20 15:25 Freq: NEEDED Status: Active Protocol: Document 06/15/20 11:12 DE (Rec: 06/15/20 11:45 DE [id number]) Orientation Orientation/Cognition Level of Alertness Alert Orientation Name,Age,Birthday,Month,Date, Year,Day of Week,Place, Situation Language Function Ability No Deficits Noted Safety Awareness Understands Safety Issues Memory Description No Deficits Noted Gross Range of Motion Upper Extremity ROM Assessment Within Functional Limits Lower Extremity ROM Assessment Within Functional Limits Strength Upper Extremity Strength Assessment Within Functional Limits Lower Extremity Strength Assessment Within Functional Limits Coordination Assessment Gross Coordination Gross Coordination WNL Sensation Assessment Sensation Gross Sensation WNL Light Touch Intact Muscle Tone Muscle Tone WNL Yes M6 PT-IP Treatment Start: 06/14/20 15:25 Freq: NEEDED Status: Active Protocol: Document 06/16/20 14:45 SP (Rec: 06/16/20 16:06 SP [email or web address]) Physical Therapy Treatment Education Education Provided Precautions,Post-Op Packet, Safety Other Treatments Other Treatment Performed Provided education on precautions, safety. M7 PT-IP Assessment and Plan Start: 06/14/20 15:25 Freq: NEEDED Status: Active Protocol: Document 06/16/20 14:45 SP (Rec: 06/16/20 16:06 SP [email or web address]) PT Summary Assessment and Plan Potential Rehabilitation Potential Good Status of Condition at Evaluation Evolving Summary Impairments Pain,ROM,Strength,Balance,Bed Mobility,Transfers,Gait, Activity Tolerance Progress Towards Goals Slow Progress due to Pain,Slow Progress due to Activity Tolerance Assessment Summary Pt required Mod A for supine> sitting, CGA sit to stand and gait using FWW with increase L posterior leg pain and tingling into B feet which tingling went away durign mobilty. Pt did not progress further distance durign gait or caregiver training on stair due to pain but discussed how mobilized this am with therapist and family declined attempt together knowing will tire her out again when returns home but confident will do fine with am report of sequencing. Pt is ok to return home with family to assist when medically cleared. Goals Bed Mobility Goal Independent Transfer Goal Independent,Front Wheeled Walker Gait Goal Independent,Front Wheel Walker Gait Distance 200 Other Goals Pt will perform 2 steps without railing with SPC and QUALITY ASSURANCE LAB TECHNICIAN. Days to Meet Goals 5 Frequency of Treatment Frequency Of Treatment Twice a Day Treatment Plan Physical Therapy Treatment Plan Bed Mobility Training,Transfer Training,Gait Training, Therapeutic Exercise,Balance Retraining,Post Op Education, Discharge Planning,Hot or Cold Pack,Neuromuscular Re-ed Recommendations To Nursing Amount of Assist Needed Standby Assistance Discharge Recommendations PT Discharge Recommendations Home with Assistance Transportation Needs at Discharge Private Vehicle
--- NOTE | 2020-06-16 18:22 | PC.NURSE ---
dressing changed with coversite. discharge teaching done. script given to family.
== END 2020-06-16 16:50 | disposition home or self-care (01) | DRG 455 ==
PROVIDERS: Admitting Provider Orthopaedic Surgery Orthopaedic Surgery of the Spine; Family Provider Family Medicine; PCP Family Medicine; Referring Provider Family Medicine; Visit Provider Orthopaedic Surgery Orthopaedic Surgery of the Spine
PROC: 0SG00AJ Fusion of Lumbar Vertebral Joint with Interbody Fusion Device, Posterior Approach, Anterior Column, Open Approach (ICD-10-PCS; principal; 2020-06-14 07:45)
DX: M48.061 Spinal stenosis, lumbar region without neurogenic claudication (principal); M43.17 Spondylolisthesis, lumbosacral region; M47.27 Other spondylosis with radiculopathy, lumbosacral region; M48.07 Spinal stenosis, lumbosacral region; E07.9 Disorder of thyroid, unspecified; E78.5 Hyperlipidemia, unspecified; F32.9 Major depressive disorder, single episode, unspecified; E66.9 Obesity, unspecified; I10 Essential (primary) hypertension; Z20.828 Contact with and (suspected) exposure to other viral communicable diseases; Z85.3 Personal history of malignant neoplasm of breast; Z68.39 Body mass index [BMI] 39.0-39.9, adult
CPT/HCPCS: 36415; 72100; 76000; 85014; 85018; 87635; 90471; 90662; 94760; 97116; 97162; 97165; 97530; 97535; C1776; C9290; J0330; J0690; J1100; J1170; J2250; J2405; J2704; J3010

== ENCOUNTER 2021-01-20 09:45 | Outpatient (RCR) | payer BC, SELFPAY ==
[2020-06-14 13:24] VITALS: BMI 39.0
--- NOTE | 2020-09-23 14:55 | PT.OIE ---
Current Diagnoses Spondylolisthesis, thoracic region (09/23/20) Other spondylosis with radiculopathy, lumbosacral region (09/23/20) Spinal stenosis, lumbar region without neurogenic claudication (09/23/20) Past Medical History (Last Updated 06/15/20 @ 07:56 by Lynnette Auguste PA-C) Arthritis Breast cancer (2014) Depression Fusion of spine of cervical region (1996) Fusion of spine of cervical region (2001) Healthy adult HLD (hyperlipidemia) HTN (hypertension) Insomnia Obesity Small bowel obstruction (10/2018) Spondylolisthesis Vertigo Past Surgical History (Last Updated 06/07/20 @ 14:16 by Evon Wayne RN) H/O: hysterectomy (1997) History of bunionectomy of both great toes History of exploratory laparotomy Hx of abdominal surgery (10/2018) Hx of repair of right rotator cuff Hx of tubal ligation Visit Care Team Role Provider Type Patria Aiken DO Family Provider Non-Staff Primary Care Provider Specialty: Family Practice Address: [address] [place] [address], [phone] Email: Дмитрий Ching MD Attending Provider Physician Referring Provider Specialty: Orthopedic Surgery Address: [address] [place] [address], [id number] Email: [email or web address] Therapy Initial Evaluation PT-OP-A Visit Information Start: 09/21/20 14:55 Freq: Status: Active Protocol: Document 09/23/20 08:19 [facility] (Rec: 09/23/20 09:10 [facility] [id number]) Out-Patient Physical Therapy Visit Information Visit Information Visit Type Initial Evaluation Visit Note 07/18 Visit Start Time 08:20 Visit Stop Time 09:17 Total Visit Minutes 57 Visit Number 1 Number of TECHNICIAN ANATOMIC PATHOLOGY Visits 0 PT-OP-B Current Condition Start: 09/21/20 14:55 Freq: Status: Active Protocol: Document 09/23/20 08:19 [facility] (Rec: 09/23/20 09:10 [facility] [id number]) Current Condition History of Current Condition Onset Date Jun 14 surgery, worsening back pain sept 10 Current Complaints L4-5, L5-S1 TLIF History of Current Condition 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 In Mar 2020 , she was squatted down and went to straighten a board under a euthenized horse as they were getting her onto the flat bed. Next day, was having excrutiating back pain into RLE to knee and topher tto the hospital on Mar 18. She went to see Dr. Ching Mar 25 and he took an Xray and on the took a MRI of back and returned ot see Dr. Ching who told her if she didn't have the back surgery, she would be paralyzed. Pt had problems w/ feet where seh would have to stop walking d/t feet bothering her in Feb 2019 when went back to work. 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 Pt wears new balance shoes at work typically and shoe folder checked feet after pain started in feet. Feet started feeling better w/orthotics from shoe folder but back started to irritate. She has not been wearing shoes since surgery d/t it feels like she is wearing something so tight and cutting off circulation and her feet feel ice cold. She avoid BLT for month after surgery like the MD said and then started 1.5 months after d/t concern of loosing ROM. THe heaviest thing she has picked up was a sewing box so far. Pt has been walking w/FWW but is starting to occ use cane for small distances or nothing in the house. She uses a power cart in stores. THe past 2 weeks is when she started to dec cane & FWW use except when seh leaves the house. Pt had a twisted bowel October 26, 2018 and had surgery and was hospitalized. Pt has too much pain after getting out of bed but feels okay getting off couch so has been sleeping on couch. She has vertigo that when seh lays on L side, it affects her. Pt cannot tolerate cold. Dgt concerned that pt has not returned back to work at [employer] and told her she would feel like she was 40 after the surgery. Future Testing and Treatments Planned Dgt wants to take pt to DO Treatment Goals Patient/Caregiver Goals return to work, walk better PT-OP-C Subjective Start: 09/21/20 14:55 Freq: Status: Active Protocol: Document 09/23/20 08:19 [facility] (Rec: 09/23/20 09:10 [facility] [id number]) Patient Questionnaires Oswestry Low Back Index Oswestry Score 15/50 OP-PT Pain Assessment Location LB Pain Location Details lumbosacral region & into buttocks Intensity 5 Scale Used Numeric (0 - 10) Description Aching Frequency Intermittent Variations/Patterns feet pain only at night Pain Aggravating Factors Standing,Walking Other Pain Aggravating Factors getting up from bed Pain Alleviating Factors Heat PT-OP-F Manual Assessment Start: 09/21/20 14:55 Freq: Status: Active Protocol: Document 09/23/20 08:19 [facility] (Rec: 09/23/20 09:10 [facility] [id number]) Manual Assessments Soft Tissue Assessment Soft Tissue Mobility Assessment significant scar immobility, pain w/QL & ES palpation Joint Mobility Assessment Joint Mobility Assessment slight inc iliac crest height on R in standing PT-OP-G Mobility & Gait Start: 09/21/20 14:55 Freq: Status: Active Protocol: Document 09/23/20 08:19 [facility] (Rec: 09/23/20 09:10 [facility] [id number]) OP Mobility Evaluation Bed Mobility Supine to and from Sit log roll technique used OP Gait Assessment Comments Gait Comments Fwd leaning onto FWW PT-OP-J Posture/Palpation/Skin Start: 09/21/20 14:55 Freq: Status: Active Protocol: Document 09/23/20 08:19 [facility] (Rec: 09/23/20 09:10 [facility] [id number]) Posture Evaluation Comments Posture Comments inc kyphosis, fwd lean w/ walker PT-OP-K Range of Motion Start: 09/21/20 14:55 Freq: Status: Active Protocol: Document 09/23/20 08:19 [facility] (Rec: 09/23/20 09:10 [facility] [id number]) Lumbar Spine Range of Motion Lumbar Spine Active Degrees Flexion 40 Rotation Left 49 Rotation Right 54 Lateral Flexion Left 4 Lateral Flexion Right 8 Comments unable to extend even to neutral PT-OP-L Special Tests Start: 09/21/20 14:55 Freq: Status: Active Protocol: Document 09/23/20 08:19 [facility] (Rec: 09/23/20 09:10 [facility] [id number]) Special Tests Lumbar Spine Special Tests Slump Test Results L positive PT-OP-M Strength Start: 09/21/20 14:55 Freq: Status: Active Protocol: Document 09/23/20 08:19 [facility] (Rec: 09/23/20 09:10 [facility] [id number]) Hip Strength Hip Manual Muscle Testing Right Flexion (L2) 4 Good External Rotation 3 Fair Internal Rotation 3 Fair Comments abd not tested d/t pt cannot lay on L side Left Flexion (L2) 4 Good Abduction 2+ Poor+ External Rotation 4- Good- Internal Rotation 3 Fair Knee Strength Knee Manual Muscle Testing Right Flexion (S2) 5 Normal Extension (L3) 5 Normal Left Flexion (S2) 5 Normal Extension (L3) 5 Normal Ankle/Foot Strength Ankle and Foot Manual Muscle Testing Right Dorsiflexion (L4) 5 Normal Plantarflexion (S1) 5 Normal Left Dorsiflexion (L4) 5 Normal Plantarflexion (S1) 5 Normal Comments PF tested seated PT-OP-R Modalities Start: 09/21/20 14:55 Freq: Status: Active Protocol: Document 09/23/20 08:19 [facility] (Rec: 09/23/20 09:10 [facility] [id number]) Hot Pack/Cold Pack Treatment Hot Pack Location lumbar Patient Position Hooklying Treatment Duration (minutes) 15 PT-OP-T Assessment and Plan Start: 09/21/20 14:55 Freq: Status: Active Protocol: Document 09/23/20 08:19 [facility] (Rec: 09/23/20 09:10 [facility] [id number]) Physical Therapy Assessment Rehab Potential Rehabilitation Potential Good Evaluation Complexity Number of Personal Factors/Comorbidities 3 or More Number of Body Systems Impaired 4 or More Clinical Presentation at Evaluation Evolving Impairments Impairments Activity Tolerance,Balance, Functional Activities, Functional Mobility,Gait,Pain, Posture,ROM,Soft Tissue Mobility,Strength Goals activities Short Term Goal (STG) 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 LTG Duration 11/23/20 strength Short Term Goal (STG) Pt will be indep with HEP STG Duration 10/24/20 Mcc Goal (LTG) Pt will score at least 4+/5 for all LE MMT and 3/5 w/LPM to show imrpoved stability and allow pt do typical functions and return to work. LTG Duration 11/23/20 gait Short Term Goal (STG) Pt will be able to walk with good gait mechanics w/o AD consistantly. STG Duration 10/24/20 Duct Maker Goal (LTG) Pt will be able to walk stores and longer distances without need for AD or something to lean on d/t pain/back fatigue. LTG Duration 11/23/20 Assessment Summary Assessment Pt presents s/p L4-5, L5-S1 TLIF on 06/14/20 after severe LB and RLE pain starting after helping move a board under an euthenized horse that limited her from her ability to typical daily activities. She typically works at [employer] and is hoping to complete 2 more years of working. She has been unable to work since Mar 2020 and was out for 4 months in 2019 d/t SBO and subsequent surgery. She has pain in B feet and a feeling of coldness and cannot tolerate regular shoes as they feel like they are too tight since lumbar surgery. She is still walking with a walker when leaving the house and occ walks without it in the home. She has significant weakness, poor posture, poor gait mecahnics, dec balance, dec activity tolerance and signifiacnt pain preventing her from full home activities and from return to work. She would beneift from skilled PT to address these deficits. Physical Therapy Plan Frequency and Duration Frequency of Treatment 2x/Week Duration of Treatment 3 months Plan of Care Start Date 09/23/20 Plan of Care End Date 12/24/20 Therapeutic Interventions Therapeutic Interventions Aquatic Therapy,Balance Training,Gait Training,Home Exercise Program,Joint Mobilizations,Manual Therapy, Neuromuscular Re-education, Patient/Caregiver Education, Self-Care/Home Management,Soft Tissue Mobilization,Taping, Therapeutic Activities, Therapeutic Exercises Modalities Cold Pack/Ice Massage,Electric Stimulation,Hot Packs, Ultrasound Next Visit Focus/Plan Next Note Type Treatment Note Next Visit Plan supine core stretching, standing hip flexor stretch, hip rotator stretch, standing hip strengthening, start w/ seated stepper
--- NOTE | 2020-09-23 14:56 | PT.OPPOC ---
Physical, Occupational & Speech Therapy At [facility] Current Diagnoses Spondylolisthesis, thoracic region (09/23/20) Other spondylosis with radiculopathy, lumbosacral region (09/23/20) Spinal stenosis, lumbar region without neurogenic claudication (09/23/20) Visit Care Team Role Provider Type Patria Aiken DO Family Provider Non-Staff Primary Care Provider Specialty: Family Practice Address: [address] [place] [address], [phone] Email: Дмитрий Ching MD Attending Provider Physician Referring Provider Specialty: Orthopedic Surgery Address: [address] [place] [address], [id number] Email: [email or web address] Plan Of Care PT-OP-T Assessment and Plan Start: 09/21/20 14:55 Freq: Status: Active Protocol: Document 09/23/20 08:19 [facility] (Rec: 09/23/20 09:10 [facility] [id number]) Physical Therapy Assessment Rehab Potential Rehabilitation Potential Good Evaluation Complexity Number of Personal Factors/Comorbidities 3 or More Number of Body Systems Impaired 4 or More Clinical Presentation at Evaluation Evolving Impairments Impairments Activity Tolerance,Balance, Functional Activities, Functional Mobility,Gait,Pain, Posture,ROM,Soft Tissue Mobility,Strength Goals activities Short Term Goal (STG) 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 LTG Duration 11/23/20 strength Short Term Goal (STG) Pt will be indep with HEP STG Duration 10/24/20 Silviculture Teacher Goal (LTG) Pt will score at least 4+/5 for all LE MMT and 3/5 w/LPM to show imrpoved stability and allow pt do typical functions and return to work. LTG Duration 11/23/20 gait Short Term Goal (STG) Pt will be able to walk with good gait mechanics w/o AD consistantly. STG Duration 10/24/20 Group Home Goal (LTG) Pt will be able to walk stores and longer distances without need for AD or something to lean on d/t pain/back fatigue. LTG Duration 11/23/20 Assessment Summary Assessment Pt presents s/p L4-5, L5-S1 TLIF on 06/14/20 after severe LB and RLE pain starting after helping move a board under an euthenized horse that limited her from her ability to typical daily activities. She typically works at [employer] and is hoping to complete 2 more years of working. She has been unable to work since Mar 2020 and was out for 4 months in 2019 d/t SBO and subsequent surgery. She has pain in B feet and a feeling of coldness and cannot tolerate regular shoes as they feel like they are too tight since lumbar surgery. She is still walking with a walker when leaving the house and occ walks without it in the home. She has significant weakness, poor posture, poor gait mecahnics, dec balance, dec activity tolerance and signifiacnt pain preventing her from full home activities and from return to work. She would beneift from skilled PT to address these deficits. Physical Therapy Plan Frequency and Duration Frequency of Treatment 2x/Week Duration of Treatment 3 months Plan of Care Start Date 09/23/20 Plan of Care End Date 12/24/20 Therapeutic Interventions Therapeutic Interventions Aquatic Therapy,Balance Training,Gait Training,Home Exercise Program,Joint Mobilizations,Manual Therapy, Neuromuscular Re-education, Patient/Caregiver Education, Self-Care/Home Management,Soft Tissue Mobilization,Taping, Therapeutic Activities, Therapeutic Exercises Modalities Cold Pack/Ice Massage,Electric Stimulation,Hot Packs, Ultrasound Next Visit Focus/Plan Next Note Type Treatment Note Next Visit Plan supine core stretching, standing hip flexor stretch, hip rotator stretch, standing hip strengthening, start w/ seated stepper Plan of Care Dates Plan of Care Start Date 09/23/20 Plan of Care End Date 12/24/20 Electronically Signed by: Nadine Magaña, PT 09/23/20 2075 Please Sign and Return: I have reviewed this Plan of Care and certify that the skilled therapy services above are required to meet the patient?s needs. Physician Signature Date Printed Name and Credentials Clinical Instructor Signature Printed Name and Credentials
--- NOTE | 2020-09-23 14:57 | PT.OIE ---
Current Diagnoses Spondylolisthesis, thoracic region (09/23/20) Other spondylosis with radiculopathy, lumbosacral region (09/23/20) Spinal stenosis, lumbar region without neurogenic claudication (09/23/20) Past Medical History (Last Updated 06/15/20 @ 07:56 by Lynnette Auguste PA-C) Arthritis Breast cancer (2014) Depression Fusion of spine of cervical region (1996) Fusion of spine of cervical region (2001) Healthy adult HLD (hyperlipidemia) HTN (hypertension) Insomnia Obesity Small bowel obstruction (10/2018) Spondylolisthesis Vertigo Past Surgical History (Last Updated 06/07/20 @ 14:16 by Evon Wayne RN) H/O: hysterectomy (1997) History of bunionectomy of both great toes History of exploratory laparotomy Hx of abdominal surgery (10/2018) Hx of repair of right rotator cuff Hx of tubal ligation Visit Care Team Role Provider Type Patria Aiken DO Family Provider Non-Staff Primary Care Provider Specialty: Family Practice Address: [address] [place] [address], [phone] Email: Дмитрий Ching MD Attending Provider Physician Referring Provider Specialty: Orthopedic Surgery Address: [address] [place] [address], [id number] Email: [email or web address] Physical Therapy Initial Evaluation PT-OP-A Visit Information Start: 09/21/20 14:55 Freq: Status: Active Protocol: Document 09/23/20 08:19 [facility] (Rec: 09/23/20 09:10 [facility] [id number]) Out-Patient Physical Therapy Visit Information Visit Information Visit Type Initial Evaluation Visit Note 07/18 Visit Start Time 08:20 Visit Stop Time 09:17 Total Visit Minutes 57 Visit Number 1 Number of CATALOGUE ILLUSTRATOR Visits 0 PT-OP-B Current Condition Start: 09/21/20 14:55 Freq: Status: Active Protocol: Document 09/23/20 08:19 [facility] (Rec: 09/23/20 09:10 [facility] [id number]) Current Condition History of Current Condition Onset Date Jun 14 surgery, worsening back pain sept 10 Current Complaints L4-5, L5-S1 TLIF History of Current Condition 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 In Mar 2020 , she was squatted down and went to straighten a board under a euthenized horse as they were getting her onto the flat bed. Next day, was having excrutiating back pain into RLE to knee and topher tto the hospital on Mar 18. She went to see Dr. Ching Mar 25 and he took an Xray and on the took a MRI of back and returned ot see Dr. Ching who told her if she didn't have the back surgery, she would be paralyzed. Pt had problems w/ feet where seh would have to stop walking d/t feet bothering her in Feb 2019 when went back to work. 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 Pt wears new balance shoes at work typically and child welfare specialist checked feet after pain started in feet. Feet started feeling better w/orthotics from child welfare specialist but back started to irritate. She has not been wearing shoes since surgery d/t it feels like she is wearing something so tight and cutting off circulation and her feet feel ice cold. She avoid BLT for month after surgery like the MD said and then started 1.5 months after d/t concern of loosing ROM. THe heaviest thing she has picked up was a sewing box so far. Pt has been walking w/FWW but is starting to occ use cane for small distances or nothing in the house. She uses a power cart in stores. THe past 2 weeks is when she started to dec cane & FWW use except when seh leaves the house. Pt had a twisted bowel October 26, 2018 and had surgery and was hospitalized. Pt has too much pain after getting out of bed but feels okay getting off couch so has been sleeping on couch. She has vertigo that when seh lays on L side, it affects her. Pt cannot tolerate cold. Dgt concerned that pt has not returned back to work at [employer] and told her she would feel like she was 40 after the surgery. Future Testing and Treatments Planned Dgt wants to take pt to DO Treatment Goals Patient/Caregiver Goals return to work, walk better PT-OP-C Subjective Start: 09/21/20 14:55 Freq: Status: Active Protocol: Document 09/23/20 08:19 [facility] (Rec: 09/23/20 09:10 [facility] [id number]) Patient Questionnaires Oswestry Low Back Index Oswestry Score 15/50 OP-PT Pain Assessment Location LB Pain Location Details lumbosacral region & into buttocks Intensity 5 Scale Used Numeric (0 - 10) Description Aching Frequency Intermittent Variations/Patterns feet pain only at night Pain Aggravating Factors Standing,Walking Other Pain Aggravating Factors getting up from bed Pain Alleviating Factors Heat PT-OP-F Manual Assessment Start: 09/21/20 14:55 Freq: Status: Active Protocol: Document 09/23/20 08:19 [facility] (Rec: 09/23/20 09:10 [facility] [id number]) Manual Assessments Soft Tissue Assessment Soft Tissue Mobility Assessment significant scar immobility, pain w/QL & ES palpation Joint Mobility Assessment Joint Mobility Assessment slight inc iliac crest height on R in standing PT-OP-G Mobility & Gait Start: 09/21/20 14:55 Freq: Status: Active Protocol: Document 09/23/20 08:19 [facility] (Rec: 09/23/20 09:10 [facility] [id number]) OP Mobility Evaluation Bed Mobility Supine to and from Sit log roll technique used OP Gait Assessment Comments Gait Comments Fwd leaning onto FWW PT-OP-J Posture/Palpation/Skin Start: 09/21/20 14:55 Freq: Status: Active Protocol: Document 09/23/20 08:19 [facility] (Rec: 09/23/20 09:10 [facility] [id number]) Posture Evaluation Comments Posture Comments inc kyphosis, fwd lean w/ walker PT-OP-K Range of Motion Start: 09/21/20 14:55 Freq: Status: Active Protocol: Document 09/23/20 08:19 [facility] (Rec: 09/23/20 09:10 [facility] [id number]) Lumbar Spine Range of Motion Lumbar Spine Active Degrees Flexion 40 Rotation Left 49 Rotation Right 54 Lateral Flexion Left 4 Lateral Flexion Right 8 Comments unable to extend even to neutral PT-OP-L Special Tests Start: 09/21/20 14:55 Freq: Status: Active Protocol: Document 09/23/20 08:19 [facility] (Rec: 09/23/20 09:10 [facility] [id number]) Special Tests Lumbar Spine Special Tests Slump Test Results L positive PT-OP-M Strength Start: 09/21/20 14:55 Freq: Status: Active Protocol: Document 09/23/20 08:19 [facility] (Rec: 09/23/20 09:10 [facility] [id number]) Hip Strength Hip Manual Muscle Testing Right Flexion (L2) 4 Good External Rotation 3 Fair Internal Rotation 3 Fair Comments abd not tested d/t pt cannot lay on L side Left Flexion (L2) 4 Good Abduction 2+ Poor+ External Rotation 4- Good- Internal Rotation 3 Fair Knee Strength Knee Manual Muscle Testing Right Flexion (S2) 5 Normal Extension (L3) 5 Normal Left Flexion (S2) 5 Normal Extension (L3) 5 Normal Ankle/Foot Strength Ankle and Foot Manual Muscle Testing Right Dorsiflexion (L4) 5 Normal Plantarflexion (S1) 5 Normal Left Dorsiflexion (L4) 5 Normal Plantarflexion (S1) 5 Normal Comments PF tested seated PT-OP-R Modalities Start: 09/21/20 14:55 Freq: Status: Active Protocol: Document 09/23/20 08:19 [facility] (Rec: 09/23/20 09:10 [facility] [id number]) Hot Pack/Cold Pack Treatment Hot Pack Location lumbar Patient Position Hooklying Treatment Duration (minutes) 15 PT-OP-T Assessment and Plan Start: 09/21/20 14:55 Freq: Status: Active Protocol: Document 09/23/20 08:19 [facility] (Rec: 09/23/20 09:10 [facility] [id number]) Physical Therapy Assessment Rehab Potential Rehabilitation Potential Good Evaluation Complexity Number of Personal Factors/Comorbidities 3 or More Number of Body Systems Impaired 4 or More Clinical Presentation at Evaluation Evolving Impairments Impairments Activity Tolerance,Balance, Functional Activities, Functional Mobility,Gait,Pain, Posture,ROM,Soft Tissue Mobility,Strength Goals lifting Short Term Goal (STG) Pt will be able to lift light weights with good mechanics. STG Duration 10/24/20 Oil Lease Buyer Goal (LTG) Pt will be able to lift 20 lbs safely and comfortably with good mechanics. 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 LTG Duration 11/23/20 strength Short Term Goal (STG) Pt will be indep with HEP STG Duration 10/24/20 Prison Goal (LTG) Pt will score at least 4+/5 for all LE MMT and 3/5 w/LPM to show imrpoved stability and allow pt do typical functions and return to work. LTG Duration 11/23/20 gait Short Term Goal (STG) Pt will be able to walk with good gait mechanics w/o AD consistantly. STG Duration 10/24/20 Prison Goal (LTG) Pt will be able to walk stores and longer distances without need for AD or something to lean on d/t pain/back fatigue. LTG Duration 11/23/20 Assessment Summary Assessment Pt presents s/p L4-5, L5-S1 TLIF on 06/14/20 after severe LB and RLE pain starting after helping move a board under an euthenized horse that limited her from her ability to typical daily activities. She typically works at [employer] and is hoping to complete 2 more years of working. She has been unable to work since Mar 2020 and was out for 4 months in 2019 d/t SBO and subsequent surgery. She has pain in B feet and a feeling of coldness and cannot tolerate regular shoes as they feel like they are too tight since lumbar surgery. She is still walking with a walker when leaving the house and occ walks without it in the home. She has significant weakness, poor posture, poor gait mecahnics, dec balance, dec activity tolerance and signifiacnt pain preventing her from full home activities and from return to work. She would beneift from skilled PT to address these deficits. Physical Therapy Plan Frequency and Duration Frequency of Treatment 2x/Week Duration of Treatment 3 months Plan of Care Start Date 09/23/20 Plan of Care End Date 12/24/20 Therapeutic Interventions Therapeutic Interventions Aquatic Therapy,Balance Training,Gait Training,Home Exercise Program,Joint Mobilizations,Manual Therapy, Neuromuscular Re-education, Patient/Caregiver Education, Self-Care/Home Management,Soft Tissue Mobilization,Taping, Therapeutic Activities, Therapeutic Exercises Modalities Cold Pack/Ice Massage,Electric Stimulation,Hot Packs, Ultrasound Next Visit Focus/Plan Next Note Type Treatment Note Next Visit Plan supine core stretching, standing hip flexor stretch, hip rotator stretch, standing hip strengthening, start w/ seated stepper
--- NOTE | 2020-09-23 14:57 | PT.OPPOC ---
Physical, Occupational & Speech Therapy At [facility] Current Diagnoses Spondylolisthesis, thoracic region (09/23/20) Other spondylosis with radiculopathy, lumbosacral region (09/23/20) Spinal stenosis, lumbar region without neurogenic claudication (09/23/20) Visit Care Team Role Provider Type Patria Aiken DO Family Provider Non-Staff Primary Care Provider Specialty: Family Practice Address: [address] [place] [address], [phone] Email: Дмитрий Ching MD Attending Provider Physician Referring Provider Specialty: Orthopedic Surgery Address: [address] [place] [address], [phone] Email: [email or web address] Plan Of Care PT-OP-T Assessment and Plan Start: 09/21/20 14:55 Freq: Status: Active Protocol: Document 09/23/20 08:19 [facility] (Rec: 09/23/20 09:10 [facility] [id number]) Physical Therapy Assessment Rehab Potential Rehabilitation Potential Good Evaluation Complexity Number of Personal Factors/Comorbidities 3 or More Number of Body Systems Impaired 4 or More Clinical Presentation at Evaluation Evolving Impairments Impairments Activity Tolerance,Balance, Functional Activities, Functional Mobility,Gait,Pain, Posture,ROM,Soft Tissue Mobility,Strength Goals lifting Short Term Goal (STG) Pt will be able to lift light weights with good mechanics. STG Duration 10/24/20 Care Home Goal (LTG) Pt will be able to lift 20 lbs safely and comfortably with good mechanics. 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 LTG Duration 11/23/20 strength Short Term Goal (STG) Pt will be indep with HEP STG Duration 10/24/20 Freight Checker Goal (LTG) Pt will score at least 4+/5 for all LE MMT and 3/5 w/LPM to show imrpoved stability and allow pt do typical functions and return to work. LTG Duration 11/23/20 gait Short Term Goal (STG) Pt will be able to walk with good gait mechanics w/o AD consistantly. STG Duration 10/24/20 Care Home Goal (LTG) Pt will be able to walk stores and longer distances without need for AD or something to lean on d/t pain/back fatigue. LTG Duration 11/23/20 Assessment Summary Assessment Pt presents s/p L4-5, L5-S1 TLIF on 06/14/20 after severe LB and RLE pain starting after helping move a board under an euthenized horse that limited her from her ability to typical daily activities. She typically works at [employer] and is hoping to complete 2 more years of working. She has been unable to work since Mar 2020 and was out for 4 months in 2019 d/t SBO and subsequent surgery. She has pain in B feet and a feeling of coldness and cannot tolerate regular shoes as they feel like they are too tight since lumbar surgery. She is still walking with a walker when leaving the house and occ walks without it in the home. She has significant weakness, poor posture, poor gait mecahnics, dec balance, dec activity tolerance and signifiacnt pain preventing her from full home activities and from return to work. She would beneift from skilled PT to address these deficits. Physical Therapy Plan Frequency and Duration Frequency of Treatment 2x/Week Duration of Treatment 3 months Plan of Care Start Date 09/23/20 Plan of Care End Date 12/24/20 Therapeutic Interventions Therapeutic Interventions Aquatic Therapy,Balance Training,Gait Training,Home Exercise Program,Joint Mobilizations,Manual Therapy, Neuromuscular Re-education, Patient/Caregiver Education, Self-Care/Home Management,Soft Tissue Mobilization,Taping, Therapeutic Activities, Therapeutic Exercises Modalities Cold Pack/Ice Massage,Electric Stimulation,Hot Packs, Ultrasound Next Visit Focus/Plan Next Note Type Treatment Note Next Visit Plan supine core stretching, standing hip flexor stretch, hip rotator stretch, standing hip strengthening, start w/ seated stepper Plan of Care Dates Plan of Care Start Date 09/23/20 Plan of Care End Date 12/24/20 Electronically Signed by: Nadine Magaña, PT 09/23/20 [id number] Please Sign and Return: I have reviewed this Plan of Care and certify that the skilled therapy services above are required to meet the patient?s needs. Physician Signature Date Printed Name and Credentials Clinical Instructor Signature Printed Name and Credentials
--- NOTE | 2020-09-27 12:01 | PT.OTN ---
Current Diagnoses Spondylolisthesis, thoracic region (09/27/20) Other spondylosis with radiculopathy, lumbosacral region (09/27/20) Spinal stenosis, lumbar region without neurogenic claudication (09/27/20) Physical Therapy Treatment Note PT-OP-A Visit Information Start: 09/21/20 14:55 Freq: Status: Active Protocol: Document 09/27/20 11:14 MA (Rec: 09/27/20 12:01 MA [id number]) Out-Patient Physical Therapy Visit Information Visit Information Visit Type Treatment Note Visit Note 08/18 Visit Start Time 11:05 Visit Stop Time 11:48 Total Visit Minutes 43 Visit Number 2 Number of MAGNET MAKER Visits 1 PT-OP-B Current Condition Start: 09/21/20 14:55 Freq: Status: Active Protocol: Document 09/23/20 08:19 LR (Rec: 09/23/20 09:10 [facility] [id number]) Current Condition History of Current Condition Onset Date Jun 14 surgery, worsening back pain mar 18 Current Complaints L4-5, L5-S1 TLIF History of Current Condition 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 In Mar 2020 , she was squatted down and went to straighten a board under a euthenized horse as they were getting her onto the flat bed. Next day, was having excrutiating back pain into RLE to knee and topher tto the hospital on Mar 18. She went to see Dr. Ching Mar 25 and he took an Xray and on the took a MRI of back and returned ot see Dr. Ching who told her if she didn't have the back surgery, she would be paralyzed. Pt had problems w/ feet where seh would have to stop walking d/t feet bothering her in Feb 2019 when went back to work. 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 Pt wears new balance shoes at work typically and learning and development intern checked feet after pain started in feet. Feet started feeling better w/orthotics from learning and development intern but back started to irritate. She has not been wearing shoes since surgery d/t it feels like she is wearing something so tight and cutting off circulation and her feet feel ice cold. She avoid BLT for month after surgery like the MD said and then started 1.5 months after d/t concern of loosing ROM. THe heaviest thing she has picked up was a sewing box so far. Pt has been walking w/FWW but is starting to occ use cane for small distances or nothing in the house. She uses a power cart in stores. THe past 2 weeks is when she started to dec cane & FWW use except when seh leaves the house. Pt had a twisted bowel October 26, 2018 and had surgery and was hospitalized. Pt has too much pain after getting out of bed but feels okay getting off couch so has been sleeping on couch. She has vertigo that when seh lays on L side, it affects her. Pt cannot tolerate cold. Dgt concerned that pt has not returned back to work at [employer] and told her she would feel like she was 40 after the surgery. Future Testing and Treatments Planned Dgt wants to take pt to DO Treatment Goals Patient/Caregiver Goals return to work, walk better PT-OP-C Subjective Start: 09/21/20 14:55 Freq: Status: Active Protocol: Document 09/27/20 11:14 MA (Rec: 09/27/20 12:01 MA [id number]) OP-PT Subjective Patient Comments Patient Comments Pt did not sleep well last night. She usually takes oxy at night to help with the pain . Pain is in her feet and it feels cold and tingling. Last night she took 2 tylenol PM but it did not help so she couldn't sleep PT-OP-F Manual Assessment Start: 09/21/20 14:55 Freq: Status: Active Protocol: Document 09/23/20 08:19 [facility] (Rec: 09/23/20 09:10 [facility] [id number]) Manual Assessments Soft Tissue Assessment Soft Tissue Mobility Assessment significant scar immobility, pain w/QL & ES palpation Joint Mobility Assessment Joint Mobility Assessment slight inc iliac crest height on R in standing PT-OP-G Mobility & Gait Start: 09/21/20 14:55 Freq: Status: Active Protocol: Document 09/23/20 08:19 [facility] (Rec: 09/23/20 09:10 [facility] [id number]) OP Mobility Evaluation Bed Mobility Supine to and from Sit log roll technique used OP Gait Assessment Comments Gait Comments Fwd leaning onto FWW PT-OP-J Posture/Palpation/Skin Start: 09/21/20 14:55 Freq: Status: Active Protocol: Document 09/23/20 08:19 [facility] (Rec: 09/23/20 09:10 [facility] [id number]) Posture Evaluation Comments Posture Comments inc kyphosis, fwd lean w/ walker PT-OP-K Range of Motion Start: 09/21/20 14:55 Freq: Status: Active Protocol: Document 09/23/20 08:19 [facility] (Rec: 09/23/20 09:10 [facility] [id number]) Lumbar Spine Range of Motion Lumbar Spine Active Degrees Flexion 40 Rotation Left 49 Rotation Right 54 Lateral Flexion Left 4 Lateral Flexion Right 8 Comments unable to extend even to neutral PT-OP-L Special Tests Start: 09/21/20 14:55 Freq: Status: Active Protocol: Document 09/23/20 08:19 [facility] (Rec: 09/23/20 09:10 [facility] [id number]) Special Tests Lumbar Spine Special Tests Slump Test Results L positive PT-OP-M Strength Start: 09/21/20 14:55 Freq: Status: Active Protocol: Document 09/23/20 08:19 [facility] (Rec: 09/23/20 09:10 [facility] [id number]) Hip Strength Hip Manual Muscle Testing Right Flexion (L2) 4 Good External Rotation 3 Fair Internal Rotation 3 Fair Comments abd not tested d/t pt cannot lay on L side Left Flexion (L2) 4 Good Abduction 2+ Poor+ External Rotation 4- Good- Internal Rotation 3 Fair Knee Strength Knee Manual Muscle Testing Right Flexion (S2) 5 Normal Extension (L3) 5 Normal Left Flexion (S2) 5 Normal Extension (L3) 5 Normal Ankle/Foot Strength Ankle and Foot Manual Muscle Testing Right Dorsiflexion (L4) 5 Normal Plantarflexion (S1) 5 Normal Left Dorsiflexion (L4) 5 Normal Plantarflexion (S1) 5 Normal Comments PF tested seated PT-OP-Q Treatments Start: 09/21/20 14:55 Freq: Status: Active Protocol: Document 09/27/20 11:14 MA (Rec: 09/27/20 12:01 MA [id number]) Cardio Equipment Recumbent Elliptical ([employer]) Duration (Minutes) 6 Resistance 1 Seat Position 6 Other Cues for LEs Therapeutic Exercises Supine Exercises Stretch Supine Exercise Name 1. piriformis stretch 2. butterfly stretch Side bilateral Reps/Minutes 60 sec Comments d/c piriformis due to increased back/hip pain Standing Exercises Hip Flexor Stretch Side bilateral Reps/Minutes 30 sec ea Gait Training Gait Activity Walking Description solid surface Level of Assistance FWW Distance/Duration 100 feet Comments Cues to stay within walker Manual Therapy Treatment Soft Tissue Mobilization Scar Body Location Posterior LB Mobilization Type Rolling Intensity/Depth Moderate Body Position R Sidelying Comments Pt cannot lie on stomach or L side Superficial-moderate pressure Self-Care/Home Management Treatment Education Patient Education Home Exercise Program Other Education Standing hip flexor stretch and supine adductor stretch ( butterfly) added to HEP. Educated pt on having daughter massage into scar tissue. PT-OP-R Modalities Start: 09/21/20 14:55 Freq: Status: Active Protocol: Document 09/23/20 08:19 [facility] (Rec: 09/23/20 09:10 LR [id number]) Hot Pack/Cold Pack Treatment Hot Pack Location lumbar Patient Position Hooklying Treatment Duration (minutes) 15 PT-OP-T Assessment and Plan Start: 09/21/20 14:55 Freq: Status: Active Protocol: Document 09/27/20 11:14 MA (Rec: 09/27/20 12:01 MA [id number]) Physical Therapy Assessment Goals lifting Short Term Goal (STG) Pt will be able to lift light weights with good mechanics. STG Duration 10/24/20 Fpc Goal (LTG) Pt will be able to lift 20 lbs safely and comfortably with good mechanics. 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 LTG Duration 11/23/20 strength Short Term Goal (STG) Pt will be indep with HEP STG Duration 10/24/20 Machine Operator Replanter Goal (LTG) Pt will score at least 4+/5 for all LE MMT and 3/5 w/LPM to show imrpoved stability and allow pt do typical functions and return to work. LTG Duration 11/23/20 gait Short Term Goal (STG) Pt will be able to walk with good gait mechanics w/o AD consistantly. STG Duration 10/24/20 Fpc Goal (LTG) Pt will be able to walk stores and longer distances without need for AD or something to lean on d/t pain/back fatigue. LTG Duration 11/23/20 Assessment Summary Assessment Pt had increased LBP and hip pain during piriformis stretch both supine and seated. Added standing hip flexor stretch and supine adductor stretch to HEP. Worked on scar mobilization with pt initially only able to tolerate superficial pressure but if distracted while talking can tolerate moderate pressure. Discussed with pt having her daughter do some work on her scars at home. Physical Therapy Plan Frequency and Duration Frequency of Treatment 2x/Week Duration of Treatment 3 months Plan of Care Start Date 09/23/20 Plan of Care End Date 12/24/20 Therapeutic Interventions Therapeutic Interventions Aquatic Therapy,Balance Training,Gait Training,Home Exercise Program,Joint Mobilizations,Manual Therapy, Neuromuscular Re-education, Patient/Caregiver Education, Self-Care/Home Management,Soft Tissue Mobilization,Taping, Therapeutic Activities, Therapeutic Exercises Modalities Cold Pack/Ice Massage,Electric Stimulation,Hot Packs, Ultrasound Next Visit Focus/Plan Next Note Type Treatment Note Next Visit Plan Start with seated stepper, begin gait training with and without AD. Begin supine core stretching and standing hip strengthening, adding both to HEP. Review HEP
--- NOTE | 2020-09-30 11:18 | PT.OTN ---
Current Diagnoses Spondylolisthesis, thoracic region (09/30/20) Other spondylosis with radiculopathy, lumbosacral region (09/30/20) Spinal stenosis, lumbar region without neurogenic claudication (09/30/20) Physical Therapy Treatment Note PT-OP-A Visit Information Start: 09/21/20 14:55 Freq: Status: Active Protocol: Document 09/30/20 10:26 [facility] (Rec: 09/30/20 11:18 [facility] [id number]) Out-Patient Physical Therapy Visit Information Visit Information Visit Type Treatment Note Visit Note 09/15 Visit Start Time 10:34 Visit Stop Time 11:29 Total Visit Minutes 55 Visit Number 3 Number of DIRECTOR HOME Visits 0 PT-OP-B Current Condition Start: 09/21/20 14:55 Freq: Status: Active Protocol: Document 09/23/20 08:19 [facility] (Rec: 09/23/20 09:10 [facility] [id number]) Current Condition History of Current Condition Onset Date Jun 14 surgery, worsening back pain mar 18 Current Complaints L4-5, L5-S1 TLIF History of Current Condition 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 In Mar 2020 , she was squatted down and went to straighten a board under a euthenized horse as they were getting her onto the flat bed. Next day, was having excrutiating back pain into RLE to knee and topher tto the hospital on Mar 18. She went to see Dr. Ching Mar 25 and he took an Xray and on the took a MRI of back and returned ot see Dr. Ching who told her if she didn't have the back surgery, she would be paralyzed. Pt had problems w/ feet where seh would have to stop walking d/t feet bothering her in Feb 2019 when went back to work. 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 Pt wears new balance shoes at work typically and escapement matcher checked feet after pain started in feet. Feet started feeling better w/orthotics from escapement matcher but back started to irritate. She has not been wearing shoes since surgery d/t it feels like she is wearing something so tight and cutting off circulation and her feet feel ice cold. She avoid BLT for month after surgery like the MD said and then started 1.5 months after d/t concern of loosing ROM. THe heaviest thing she has picked up was a sewing box so far. Pt has been walking w/FWW but is starting to occ use cane for small distances or nothing in the house. She uses a power cart in stores. THe past 2 weeks is when she started to dec cane & FWW use except when seh leaves the house. Pt had a twisted bowel October 26, 2018 and had surgery and was hospitalized. Pt has too much pain after getting out of bed but feels okay getting off couch so has been sleeping on couch. She has vertigo that when seh lays on L side, it affects her. Pt cannot tolerate cold. Dgt concerned that pt has not returned back to work at [employer] and told her she would feel like she was 40 after the surgery. Future Testing and Treatments Planned Dgt wants to take pt to DO Treatment Goals Patient/Caregiver Goals return to work, walk better PT-OP-C Subjective Start: 09/21/20 14:55 Freq: Status: Active Protocol: Document 09/30/20 10:26 [facility] (Rec: 09/30/20 11:18 [facility] [id number]) OP-PT Subjective Patient Comments Patient Comments Pt reports feet are painful everyday starting around 9 or 10 pm but okay during day. Notes back is still stiff and achey. PT-OP-F Manual Assessment Start: 09/21/20 14:55 Freq: Status: Active Protocol: Document 09/23/20 08:19 [facility] (Rec: 09/23/20 09:10 [facility] [id number]) Manual Assessments Soft Tissue Assessment Soft Tissue Mobility Assessment significant scar immobility, pain w/QL & ES palpation Joint Mobility Assessment Joint Mobility Assessment slight inc iliac crest height on R in standing PT-OP-G Mobility & Gait Start: 09/21/20 14:55 Freq: Status: Active Protocol: Document 09/23/20 08:19 [facility] (Rec: 09/23/20 09:10 [facility] [id number]) OP Mobility Evaluation Bed Mobility Supine to and from Sit log roll technique used OP Gait Assessment Comments Gait Comments Fwd leaning onto FWW PT-OP-J Posture/Palpation/Skin Start: 09/21/20 14:55 Freq: Status: Active Protocol: Document 09/23/20 08:19 [facility] (Rec: 09/23/20 09:10 [facility] [id number]) Posture Evaluation Comments Posture Comments inc kyphosis, fwd lean w/ walker PT-OP-K Range of Motion Start: 09/21/20 14:55 Freq: Status: Active Protocol: Document 09/23/20 08:19 [facility] (Rec: 09/23/20 09:10 [facility] [id number]) Lumbar Spine Range of Motion Lumbar Spine Active Degrees Flexion 40 Rotation Left 49 Rotation Right 54 Lateral Flexion Left 4 Lateral Flexion Right 8 Comments unable to extend even to neutral PT-OP-L Special Tests Start: 09/21/20 14:55 Freq: Status: Active Protocol: Document 09/23/20 08:19 [facility] (Rec: 09/23/20 09:10 [facility] [id number]) Special Tests Lumbar Spine Special Tests Slump Test Results L positive PT-OP-M Strength Start: 09/21/20 14:55 Freq: Status: Active Protocol: Document 09/23/20 08:19 [facility] (Rec: 09/23/20 09:10 [facility] [id number]) Hip Strength Hip Manual Muscle Testing Right Flexion (L2) 4 Good External Rotation 3 Fair Internal Rotation 3 Fair Comments abd not tested d/t pt cannot lay on L side Left Flexion (L2) 4 Good Abduction 2+ Poor+ External Rotation 4- Good- Internal Rotation 3 Fair Knee Strength Knee Manual Muscle Testing Right Flexion (S2) 5 Normal Extension (L3) 5 Normal Left Flexion (S2) 5 Normal Extension (L3) 5 Normal Ankle/Foot Strength Ankle and Foot Manual Muscle Testing Right Dorsiflexion (L4) 5 Normal Plantarflexion (S1) 5 Normal Left Dorsiflexion (L4) 5 Normal Plantarflexion (S1) 5 Normal Comments PF tested seated PT-OP-Q Treatments Start: 09/21/20 14:55 Freq: Status: Active Protocol: Document 09/30/20 10:26 [facility] (Rec: 09/30/20 11:18 [facility] [id number]) Cardio Equipment Recumbent Elliptical ([employer]) Duration (Minutes) 7 Resistance 3 Seat Position 6 Therapeutic Exercises Supine Exercises Stretch Supine Exercise Name butterfly stretch Side bilateral Reps/Minutes 60 sec Standing Exercises sit to stand Standing Exercise Name no hands Side bilateral Reps/Minutes 10 Comments dang chair hip abd Side bilateral Reps/Minutes 2x10 Comments focus on core and posture hip ext Side bilateral Reps/Minutes 2x10 Comments focus on core and posture Hip Flexor Stretch Side bilateral Reps/Minutes 60 sec ea Gait Training Gait Activity Walking Comments 1. attempted without AD and educated on how lat leaning is bad for back and she does not look safe so she should use cane or FWW 2. cane amb 150ft w/SBA with cueing for sequence. Imrpoved gait w/cane on L side. Manual Therapy Treatment Soft Tissue Mobilization Scar Body Location Posterior LB scar, paraspinals B, QL B Mobilization Type Rolling Intensity/Depth Moderate Body Position R Sidelying Comments Pt cannot lie on stomach or L side Superficial-moderate pressure PT-OP-R Modalities Start: 09/21/20 14:55 Freq: Status: Active Protocol: Document 09/30/20 10:26 [facility] (Rec: 09/30/20 11:18 [facility] [id number]) Hot Pack/Cold Pack Treatment Hot Pack Location lumbar Patient Position Hooklying Treatment Duration (minutes) 15 PT-OP-T Assessment and Plan Start: 09/21/20 14:55 Freq: Status: Active Protocol: Document 09/30/20 10:26 [facility] (Rec: 09/30/20 11:18 [facility] [id number]) Physical Therapy Assessment Goals lifting Short Term Goal (STG) Pt will be able to lift light weights with good mechanics. STG Duration 10/24/20 Tar Roofer Goal (LTG) Pt will be able to lift 20 lbs safely and comfortably with good mechanics. 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 LTG Duration 11/23/20 strength Short Term Goal (STG) Pt will be indep with HEP STG Duration 10/24/20 Tar Roofer Goal (LTG) Pt will score at least 4+/5 for all LE MMT and 3/5 w/LPM to show imrpoved stability and allow pt do typical functions and return to work. LTG Duration 11/23/20 gait Short Term Goal (STG) Pt will be able to walk with good gait mechanics w/o AD consistantly. STG Duration 10/24/20 Tar Roofer Goal (LTG) Pt will be able to walk stores and longer distances without need for AD or something to lean on d/t pain/back fatigue. LTG Duration 11/23/20 Assessment Summary Assessment Pt is educated that she is not safe without AD, but did okay with cuieng with cane. Educated to use cane or walker . She does require rest breaks d/t fatigue duirng exercises. Physical Therapy Plan Frequency and Duration Frequency of Treatment 2x/Week Duration of Treatment 3 months Plan of Care Start Date 09/23/20 Plan of Care End Date 12/24/20 Next Visit Focus/Plan Next Note Type Treatment Note Next Visit Plan review exercises, cont to work on gait training.
--- NOTE | 2020-10-04 16:40 | PT.OTN ---
Current Diagnoses Spondylolisthesis, thoracic region (10/04/20) Other spondylosis with radiculopathy, lumbosacral region (10/04/20) Spinal stenosis, lumbar region without neurogenic claudication (10/04/20) Physical Therapy Treatment Note PT-OP-A Visit Information Start: 09/21/20 14:55 Freq: Status: Active Protocol: Document 10/04/20 15:39 [facility] (Rec: 10/04/20 16:05 [facility] [id number]) Out-Patient Physical Therapy Visit Information Visit Information Visit Type Treatment Note Visit Start Time 15:19 Visit Stop Time 16:14 Total Visit Minutes 55 Visit Number 4 Number of ADVOCACY DIRECTOR Visits 0 PT-OP-B Current Condition Start: 09/21/20 14:55 Freq: Status: Active Protocol: Document 09/23/20 08:19 [facility] (Rec: 09/23/20 09:10 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 In Mar 2020 , she was squatted down and went to straighten a board under a euthenized horse as they were getting her onto the flat bed. Next day, was having excrutiating back pain into RLE to knee and topher tto the hospital on Mar 18. She went to see Dr. Ching Mar 25 and he took an Xray and on the took a MRI of back and returned ot see Dr. Ching who told her if she didn't have the back surgery, she would be paralyzed. Pt had problems w/ feet where seh would have to stop walking d/t feet bothering her in Feb 2019 when went back to work. 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 Pt wears new balance shoes at work typically and broodmare foreman checked feet after pain started in feet. Feet started feeling better w/orthotics from broodmare foreman but back started to irritate. She has not been wearing shoes since surgery d/t it feels like she is wearing something so tight and cutting off circulation and her feet feel ice cold. She avoid BLT for month after surgery like the MD said and then started 1.5 months after d/t concern of loosing ROM. THe heaviest thing she has picked up was a sewing box so far. Pt has been walking w/FWW but is starting to occ use cane for small distances or nothing in the house. She uses a power cart in stores. THe past 2 weeks is when she started to dec cane & FWW use except when seh leaves the house. Pt had a twisted bowel October 26, 2018 and had surgery and was hospitalized. Pt has too much pain after getting out of bed but feels okay getting off couch so has been sleeping on couch. She has vertigo that when seh lays on L side, it affects her. Pt cannot tolerate cold. Dgt concerned that pt has not returned back to work at [employer] and told her she would feel like she was 40 after the surgery. Future Testing and Treatments Planned Dgt wants to take pt to DO Treatment Goals Patient/Caregiver Goals return to work, walk better PT-OP-C Subjective Start: 09/21/20 14:55 Freq: Status: Active Protocol: Document 10/04/20 15:39 [facility] (Rec: 10/04/20 16:05 [facility] [id number]) OP-PT Subjective Patient Comments Patient Comments Pt reprots she is still really bothered by her feet especially at night. Notes back bothers her when standing too long. She does not think [facility] will let her go back w /walker PT-OP-F Manual Assessment Start: 09/21/20 14:55 Freq: Status: Active Protocol: Document 09/23/20 08:19 [facility] (Rec: 09/23/20 09:10 [facility] [id number]) Manual Assessments Soft Tissue Assessment Soft Tissue Mobility Assessment significant scar immobility, pain w/QL & ES palpation Joint Mobility Assessment Joint Mobility Assessment slight inc iliac crest height on R in standing PT-OP-G Mobility & Gait Start: 09/21/20 14:55 Freq: Status: Active Protocol: Document 09/23/20 08:19 [facility] (Rec: 09/23/20 09:10 [facility] [id number]) OP Mobility Evaluation Bed Mobility Supine to and from Sit log roll technique used OP Gait Assessment Comments Gait Comments Fwd leaning onto FWW PT-OP-J Posture/Palpation/Skin Start: 09/21/20 14:55 Freq: Status: Active Protocol: Document 09/23/20 08:19 [facility] (Rec: 09/23/20 09:10 [facility] [id number]) Posture Evaluation Comments Posture Comments inc kyphosis, fwd lean w/ walker PT-OP-K Range of Motion Start: 09/21/20 14:55 Freq: Status: Active Protocol: Document 09/23/20 08:19 [facility] (Rec: 09/23/20 09:10 [facility] [id number]) Lumbar Spine Range of Motion Lumbar Spine Active Degrees Flexion 40 Rotation Left 49 Rotation Right 54 Lateral Flexion Left 4 Lateral Flexion Right 8 Comments unable to extend even to neutral PT-OP-L Special Tests Start: 09/21/20 14:55 Freq: Status: Active Protocol: Document 09/23/20 08:19 [facility] (Rec: 09/23/20 09:10 [facility] [id number]) Special Tests Lumbar Spine Special Tests Slump Test Results L positive PT-OP-M Strength Start: 09/21/20 14:55 Freq: Status: Active Protocol: Document 09/23/20 08:19 [facility] (Rec: 09/23/20 09:10 [facility] [id number]) Hip Strength Hip Manual Muscle Testing Right Flexion (L2) 4 Good External Rotation 3 Fair Internal Rotation 3 Fair Comments abd not tested d/t pt cannot lay on L side Left Flexion (L2) 4 Good Abduction 2+ Poor+ External Rotation 4- Good- Internal Rotation 3 Fair Knee Strength Knee Manual Muscle Testing Right Flexion (S2) 5 Normal Extension (L3) 5 Normal Left Flexion (S2) 5 Normal Extension (L3) 5 Normal Ankle/Foot Strength Ankle and Foot Manual Muscle Testing Right Dorsiflexion (L4) 5 Normal Plantarflexion (S1) 5 Normal Left Dorsiflexion (L4) 5 Normal Plantarflexion (S1) 5 Normal Comments PF tested seated PT-OP-Q Treatments Start: 09/21/20 14:55 Freq: Status: Active Protocol: Document 10/04/20 15:39 [facility] (Rec: 10/04/20 16:05 [facility] [id number]) Therapeutic Exercises Supine Exercises pelvic tilt Reps/Minutes 10 Standing Exercises wall posture Standing Exercise Name in small squat with focus on lumbar being on wall Reps/Minutes 2x30 sec sidestep Side bilateral Equipment Used yellow tband Reps/Minutes 20ft sit to stand Standing Exercise Name no hands Side bilateral Reps/Minutes 10 Comments dang chair hip abd Side bilateral Reps/Minutes 2x10 Comments focus on core and posture hip ext Side bilateral Reps/Minutes 2x10 Comments focus on core and posture Hip Flexor Stretch Side bilateral Reps/Minutes 60 sec ea Gait Training Gait Activity Walking Comments 1. adjusted walker for pt for better height 2. walking 50ft then 200ft with cueing for posture & relaxing shoulders Manual Therapy Treatment Soft Tissue Mobilization Scar Body Location Posterior LB scar, paraspinals B, QL B Mobilization Type Rolling Intensity/Depth Moderate Body Position R Sidelying PT-OP-R Modalities Start: 09/21/20 14:55 Freq: Status: Active Protocol: Document 10/04/20 15:39 [facility] (Rec: 10/04/20 16:05 [facility] [id number]) Hot Pack/Cold Pack Treatment Hot Pack Location lumbar Patient Position Hooklying Treatment Duration (minutes) 15 PT-OP-T Assessment and Plan Start: 09/21/20 14:55 Freq: Status: Active Protocol: Document 10/04/20 15:39 [facility] (Rec: 10/04/20 16:05 [facility] [id number]) Physical Therapy Assessment Goals lifting Short Term Goal (STG) Pt will be able to lift light weights with good mechanics. STG Duration 10/24/20 Group Home Goal (LTG) Pt will be able to lift 20 lbs safely and comfortably with good mechanics. 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 LTG Duration 11/23/20 strength Short Term Goal (STG) Pt will be indep with HEP STG Duration 10/24/20 Group Home Goal (LTG) Pt will score at least 4+/5 for all LE MMT and 3/5 w/LPM to show imrpoved stability and allow pt do typical functions and return to work. LTG Duration 11/23/20 gait Short Term Goal (STG) Pt will be able to walk with good gait mechanics w/o AD consistantly. STG Duration 10/24/20 Group Home Goal (LTG) Pt will be able to walk stores and longer distances without need for AD or something to lean on d/t pain/back fatigue. LTG Duration 11/23/20 Assessment Summary Assessment Pt did better with 4WW after training today & was zenon to keep better posture after wall posture exercise. She has significant glute and core weakenss which likely contributes to her pain. Physical Therapy Plan Frequency and Duration Frequency of Treatment 2x/Week Duration of Treatment 3 months Plan of Care Start Date 09/23/20 Plan of Care End Date 12/24/20 Next Visit Focus/Plan Next Note Type Treatment Note Next Visit Plan cont to work on posture in standing and work on glute and core strength
--- NOTE | 2020-10-07 09:44 | PT.OTN ---
Current Diagnoses Spondylolisthesis, thoracic region (10/07/20) Other spondylosis with radiculopathy, lumbosacral region (10/07/20) Spinal stenosis, lumbar region without neurogenic claudication (10/07/20) Physical Therapy Treatment Note PT-OP-A Visit Information Start: 09/21/20 14:55 Freq: Status: Active Protocol: Document 10/07/20 09:08 [facility] (Rec: 10/07/20 09:44 [facility] [id number]) Out-Patient Physical Therapy Visit Information Visit Information Visit Type Treatment Note Visit Note 11/15 Visit Start Time 09:03 Visit Stop Time 09:58 Total Visit Minutes 55 Visit Number 5 Number of ARCHITECTURAL DRAFTSMAN Visits 0 PT-OP-B Current Condition Start: 09/21/20 14:55 Freq: Status: Active Protocol: Document 09/23/20 08:19 [facility] (Rec: 09/23/20 09:10 [facility] [id number]) Current Condition History of Current Condition Onset Date Jun 14 surgery, worsening back pain mar 18 Current Complaints L4-5, L5-S1 TLIF History of Current Condition 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 In Mar 2020 , she was squatted down and went to straighten a board under a euthenized horse as they were getting her onto the flat bed. Next day, was having excrutiating back pain into RLE to knee and topher tto the hospital on Mar 18. She went to see Dr. Ching Mar 25 and he took an Xray and on the took a MRI of back and returned ot see Dr. Ching who told her if she didn't have the back surgery, she would be paralyzed. Pt had problems w/ feet where h would have to stop walking d/t feet bothering her in Feb 2019 when went back to work. 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 Pt wears new balance shoes at work typically and clerical administrative assistant checked feet after pain started in feet. Feet started feeling better w/orthotics from clerical administrative assistant but back started to irritate. She has not been wearing shoes since surgery d/t it feels like she is wearing something so tight and cutting off circulation and her feet feel ice cold. She avoid BLT for month after surgery like the MD said and then started 1.5 months after d/t concern of loosing ROM. THe heaviest thing she has picked up was a sewing box so far. Pt has been walking w/FWW but is starting to occ use cane for small distances or nothing in the house. She uses a power cart in stores. THe past 2 weeks is when she started to dec cane & FWW use except when seh leaves the house. Pt had a twisted bowel October 26, 2018 and had surgery and was hospitalized. Pt has too much pain after getting out of bed but feels okay getting off couch so has been sleeping on couch. She has vertigo that when seh lays on L side, it affects her. Pt cannot tolerate cold. Dgt concerned that pt has not returned back to work at [employer] and told her she would feel like she was 40 after the surgery. Future Testing and Treatments Planned Dgt wants to take pt to DO Treatment Goals Patient/Caregiver Goals return to work, walk better PT-OP-C Subjective Start: 09/21/20 14:55 Freq: Status: Active Protocol: Document 10/07/20 09:08 [facility] (Rec: 10/07/20 09:44 [facility] [id number]) OP-PT Subjective Patient Comments Patient Comments Pt reports trying exericses except pelvic tilt d/t not wanting to get down to floor PT-OP-F Manual Assessment Start: 09/21/20 14:55 Freq: Status: Active Protocol: Document 09/23/20 08:19 [facility] (Rec: 09/23/20 09:10 [facility] [id number]) Manual Assessments Soft Tissue Assessment Soft Tissue Mobility Assessment significant scar immobility, pain w/QL & ES palpation Joint Mobility Assessment Joint Mobility Assessment slight inc iliac crest height on R in standing PT-OP-G Mobility & Gait Start: 09/21/20 14:55 Freq: Status: Active Protocol: Document 09/23/20 08:19 [facility] (Rec: 09/23/20 09:10 [facility] [id number]) OP Mobility Evaluation Bed Mobility Supine to and from Sit log roll technique used OP Gait Assessment Comments Gait Comments Fwd leaning onto FWW PT-OP-J Posture/Palpation/Skin Start: 09/21/20 14:55 Freq: Status: Active Protocol: Document 09/23/20 08:19 [facility] (Rec: 09/23/20 09:10 [facility] [id number]) Posture Evaluation Comments Posture Comments inc kyphosis, fwd lean w/ walker PT-OP-K Range of Motion Start: 09/21/20 14:55 Freq: Status: Active Protocol: Document 09/23/20 08:19 [facility] (Rec: 09/23/20 09:10 [facility] [id number]) Lumbar Spine Range of Motion Lumbar Spine Active Degrees Flexion 40 Rotation Left 49 Rotation Right 54 Lateral Flexion Left 4 Lateral Flexion Right 8 Comments unable to extend even to neutral PT-OP-L Special Tests Start: 09/21/20 14:55 Freq: Status: Active Protocol: Document 09/23/20 08:19 [facility] (Rec: 09/23/20 09:10 [facility] [id number]) Special Tests Lumbar Spine Special Tests Slump Test Results L positive PT-OP-M Strength Start: 09/21/20 14:55 Freq: Status: Active Protocol: Document 09/23/20 08:19 [facility] (Rec: 09/23/20 09:10 [facility] [id number]) Hip Strength Hip Manual Muscle Testing Right Flexion (L2) 4 Good External Rotation 3 Fair Internal Rotation 3 Fair Comments abd not tested d/t pt cannot lay on L side Left Flexion (L2) 4 Good Abduction 2+ Poor+ External Rotation 4- Good- Internal Rotation 3 Fair Knee Strength Knee Manual Muscle Testing Right Flexion (S2) 5 Normal Extension (L3) 5 Normal Left Flexion (S2) 5 Normal Extension (L3) 5 Normal Ankle/Foot Strength Ankle and Foot Manual Muscle Testing Right Dorsiflexion (L4) 5 Normal Plantarflexion (S1) 5 Normal Left Dorsiflexion (L4) 5 Normal Plantarflexion (S1) 5 Normal Comments PF tested seated PT-OP-Q Treatments Start: 09/21/20 14:55 Freq: Status: Active Protocol: Document 10/07/20 09:08 [facility] (Rec: 10/07/20 09:44 [facility] [id number]) Cardio Equipment Recumbent Elliptical (Biodex) Duration (Minutes) 7 Resistance 6-7 Seat Position 6 Gym Equipment Shuttle Recovery Bilateral Squats Resistance 75# Shuttle Recovery Platform Stable Reps/Time 2x15 Therapeutic Exercises Supine Exercises bridge Supine Exercise Name w/PT traction facilitiaton at knees & cues for glutes Side bilateral Reps/Minutes 2x5 pelvic tilt Supine Exercise Name post Reps/Minutes 10 Standing Exercises wall posture Standing Exercise Name in small squat with focus on lumbar being on wall Reps/Minutes 2x30 sec sidestep Side bilateral Equipment Used yellow tband Reps/Minutes 20ft hip abd Side bilateral Reps/Minutes 10 Comments focus on core and posture hip ext Side bilateral Reps/Minutes 10 Comments focus on core and posture Hip Flexor Stretch Side bilateral Reps/Minutes 30 sec ea Manual Therapy Treatment Soft Tissue Mobilization Scar Body Location Posterior LB scar, paraspinals B, QL B Mobilization Type Rolling Intensity/Depth Moderate Body Position R Sidelying PT-OP-R Modalities Start: 09/21/20 14:55 Freq: Status: Active Protocol: Document 10/07/20 09:08 [facility] (Rec: 10/07/20 09:44 [facility] [id number]) Hot Pack/Cold Pack Treatment Hot Pack Location lumbar Patient Position Hooklying Treatment Duration (minutes) 15 PT-OP-T Assessment and Plan Start: 09/21/20 14:55 Freq: Status: Active Protocol: Document 10/07/20 09:08 [facility] (Rec: 10/07/20 09:44 [facility] [id number]) Physical Therapy Assessment Goals lifting Short Term Goal (STG) Pt will be able to lift light weights with good mechanics. STG Duration 10/24/20 Sales Representatives Goal (LTG) Pt will be able to lift 20 lbs safely and comfortably with good mechanics. 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 LTG Duration 11/23/20 strength Short Term Goal (STG) Pt will be indep with HEP STG Duration 10/24/20 Sales Representatives Goal (LTG) Pt will score at least 4+/5 for all LE MMT and 3/5 w/LPM to show imrpoved stability and allow pt do typical functions and return to work. LTG Duration 11/23/20 gait Short Term Goal (STG) Pt will be able to walk with good gait mechanics w/o AD consistantly. STG Duration 10/24/20 [facility] Goal (LTG) Pt will be able to walk stores and longer distances without need for AD or something to lean on d/t pain/back fatigue. LTG Duration 11/23/20 Assessment Summary Assessment Pt still requires cueing to get posture as good as she can before starting walking or when performing exercises. She tends to fwd flex at hips still. Pt edu to make sure drinking water and try 3 small walks a day in comfortable range to start building up walking tolerance Physical Therapy Plan Next Visit Focus/Plan Next Note Type Treatment Note Next Visit Plan cont to work on posture in standing and work on glute and core strength
--- NOTE | 2020-10-15 10:35 | PT.OTN ---
Current Diagnoses Spondylolisthesis, thoracic region (10/15/20) Other spondylosis with radiculopathy, lumbosacral region (10/15/20) Spinal stenosis, lumbar region without neurogenic claudication (10/15/20) Physical Therapy Treatment Note PT-OP-A Visit Information Start: 09/21/20 14:55 Freq: Status: Active Protocol: Document 10/15/20 09:50 MA (Rec: 10/15/20 10:35 MA [id number]) Out-Patient Physical Therapy Visit Information Visit Information Visit Type Treatment Note Visit Note 12/16 Visit Start Time 09:45 Visit Stop Time 10:40 Total Visit Minutes 55 Visit Number 6 Number of STATION BAGGAGE PORTER Visits 1 PT-OP-B Current Condition Start: 09/21/20 14:55 Freq: Status: Active Protocol: Document 09/23/20 08:19 [facility] (Rec: 09/23/20 09:10 LR [id number]) Current Condition History of Current Condition Onset Date Jun 14 surgery, worsening back pain mar 18 Current Complaints L4-5, L5-S1 TLIF History of Current Condition 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 In Mar 2020 , she was squatted down and went to straighten a board under a euthenized horse as they were getting her onto the flat bed. Next day, was having excrutiating back pain into RLE to knee and topher tto the hospital on Mar 18. She went to see Dr. Ching Mar 25 and he took an Xray and on the took a MRI of back and returned ot see Dr. Ching who told her if she didn't have the back surgery, she would be paralyzed. Pt had problems w/ feet where seh would have to stop walking d/t feet bothering her in Feb 2019 when went back to work. 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 Pt wears new balance shoes at work typically and cytology laboratory manager checked feet after pain started in feet. Feet started feeling better w/orthotics from cytology laboratory manager but back started to irritate. She has not been wearing shoes since surgery d/t it feels like she is wearing something so tight and cutting off circulation and her feet feel ice cold. She avoid BLT for month after surgery like the MD said and then started 1.5 months after d/t concern of loosing ROM. THe heaviest thing she has picked up was a sewing box so far. Pt has been walking w/FWW but is starting to occ use cane for small distances or nothing in the house. She uses a power cart in stores. THe past 2 weeks is when she started to dec cane & FWW use except when seh leaves the house. Pt had a twisted bowel October 26, 2018 and had surgery and was hospitalized. Pt has too much pain after getting out of bed but feels okay getting off couch so has been sleeping on couch. She has vertigo that when seh lays on L side, it affects her. Pt cannot tolerate cold. Dgt concerned that pt has not returned back to work at [employer] and told her she would feel like she was 40 after the surgery. Future Testing and Treatments Planned Dgt wants to take pt to DO Treatment Goals Patient/Caregiver Goals return to work, walk better PT-OP-C Subjective Start: 09/21/20 14:55 Freq: Status: Active Protocol: Document 10/15/20 09:50 MA (Rec: 10/15/20 10:35 MA [id number]) OP-PT Subjective Patient Comments Patient Comments Pt sees Dr Ching in December. has approved her for driving but her daughter will continue driving her to [place] due to the longer distance from [place]. She is going to ask her primary care for a note to not go back to work until after January 09. PT-OP-F Manual Assessment Start: 09/21/20 14:55 Freq: Status: Active Protocol: Document 09/23/20 08:19 [facility] (Rec: 09/23/20 09:10 [facility] [id number]) Manual Assessments Soft Tissue Assessment Soft Tissue Mobility Assessment significant scar immobility, pain w/QL & ES palpation Joint Mobility Assessment Joint Mobility Assessment slight inc iliac crest height on R in standing PT-OP-G Mobility & Gait Start: 09/21/20 14:55 Freq: Status: Active Protocol: Document 09/23/20 08:19 [facility] (Rec: 09/23/20 09:10 [facility] [id number]) OP Mobility Evaluation Bed Mobility Supine to and from Sit log roll technique used OP Gait Assessment Comments Gait Comments Fwd leaning onto FWW PT-OP-J Posture/Palpation/Skin Start: 09/21/20 14:55 Freq: Status: Active Protocol: Document 09/23/20 08:19 [facility] (Rec: 09/23/20 09:10 [facility] [id number]) Posture Evaluation Comments Posture Comments inc kyphosis, fwd lean w/ walker PT-OP-K Range of Motion Start: 09/21/20 14:55 Freq: Status: Active Protocol: Document 09/23/20 08:19 [facility] (Rec: 09/23/20 09:10 [facility] [id number]) Lumbar Spine Range of Motion Lumbar Spine Active Degrees Flexion 40 Rotation Left 49 Rotation Right 54 Lateral Flexion Left 4 Lateral Flexion Right 8 Comments unable to extend even to neutral PT-OP-L Special Tests Start: 09/21/20 14:55 Freq: Status: Active Protocol: Document 09/23/20 08:19 [facility] (Rec: 09/23/20 09:10 [facility] [id number]) Special Tests Lumbar Spine Special Tests Slump Test Results L positive PT-OP-M Strength Start: 09/21/20 14:55 Freq: Status: Active Protocol: Document 09/23/20 08:19 [facility] (Rec: 09/23/20 09:10 [facility] [id number]) Hip Strength Hip Manual Muscle Testing Right Flexion (L2) 4 Good External Rotation 3 Fair Internal Rotation 3 Fair Comments abd not tested d/t pt cannot lay on L side Left Flexion (L2) 4 Good Abduction 2+ Poor+ External Rotation 4- Good- Internal Rotation 3 Fair Knee Strength Knee Manual Muscle Testing Right Flexion (S2) 5 Normal Extension (L3) 5 Normal Left Flexion (S2) 5 Normal Extension (L3) 5 Normal Ankle/Foot Strength Ankle and Foot Manual Muscle Testing Right Dorsiflexion (L4) 5 Normal Plantarflexion (S1) 5 Normal Left Dorsiflexion (L4) 5 Normal Plantarflexion (S1) 5 Normal Comments PF tested seated PT-OP-Q Treatments Start: 09/21/20 14:55 Freq: Status: Active Protocol: Document 10/15/20 09:50 MA (Rec: 10/15/20 10:35 MA [id number]) Cardio Equipment Recumbent Elliptical (Riff[employer]x) Duration (Minutes) 8 Resistance 6-7 Seat Position 6 Therapeutic Exercises Supine Exercises bridge Supine Exercise Name w/PT traction facilitiaton at knees & cues for glutes Side bilateral Reps/Minutes 2x5 pelvic tilt Supine Exercise Name post Reps/Minutes 10 Standing Exercises sidestep Side bilateral Equipment Used yellow tband Reps/Minutes 20ft sit to stand Standing Exercise Name no hands Side bilateral Reps/Minutes 10 Comments dang chair hip abd Side bilateral Reps/Minutes 10 Comments focus on core and posture hip ext Side bilateral Reps/Minutes 10 Comments focus on core and posture Hip Flexor Stretch Side bilateral Reps/Minutes 30 sec ea Manual Therapy Treatment Soft Tissue Mobilization Scar Body Location Posterior LB scar, paraspinals B, QL B Mobilization Type Rolling Intensity/Depth Moderate Body Position R Sidelying PT-OP-R Modalities Start: 09/21/20 14:55 Freq: Status: Active Protocol: Document 10/15/20 09:50 MA (Rec: 10/15/20 10:35 MA [id number]) Hot Pack/Cold Pack Treatment Hot Pack Location lumbar Patient Position Hooklying Treatment Duration (minutes) 15 PT-OP-T Assessment and Plan Start: 09/21/20 14:55 Freq: Status: Active Protocol: Document 10/15/20 09:50 MA (Rec: 10/15/20 10:35 MA [id number]) Physical Therapy Assessment Goals lifting Short Term Goal (STG) Pt will be able to lift light weights with good mechanics. STG Duration 10/24/20 Halfway Goal (LTG) Pt will be able to lift 20 lbs safely and comfortably with good mechanics. 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 LTG Duration 11/23/20 strength Short Term Goal (STG) Pt will be indep with HEP STG Duration 10/24/20 Concrete Foreman Goal (LTG) Pt will score at least 4+/5 for all LE MMT and 3/5 w/LPM to show imrpoved stability and allow pt do typical functions and return to work. LTG Duration 11/23/20 gait Short Term Goal (STG) Pt will be able to walk with good gait mechanics w/o AD consistantly. STG Duration 10/24/20 Halfway Goal (LTG) Pt will be able to walk stores and longer distances without need for AD or something to lean on d/t pain/back fatigue. LTG Duration 11/23/20 Assessment Summary Assessment Pt requires minimal cues today for posture during standing hip exercises. She self corrected her posture throughout session showing good carryover from previous sessions. José Miguel states she feels her hip flexor stretch pulling in the front of her hip so she doesn't do it at home. Reminded her that's where we want her to feel the stretch and that she can take a smaller step back to feel it a little less if the stretch is too intense. Physical Therapy Plan Frequency and Duration Frequency of Treatment 2x/Week Duration of Treatment 3 months Plan of Care Start Date 09/23/20 Plan of Care End Date 12/24/20 Therapeutic Interventions Therapeutic Interventions Aquatic Therapy,Balance Training,Gait Training,Home Exercise Program,Joint Mobilizations,Manual Therapy, Neuromuscular Re-education, Patient/Caregiver Education, Self-Care/Home Management,Soft Tissue Mobilization,Taping, Therapeutic Activities, Therapeutic Exercises Modalities Cold Pack/Ice Massage,Electric Stimulation,Hot Packs, Ultrasound Next Visit Focus/Plan Next Note Type Treatment Note Next Visit Plan cont to work on posture in standing and work on glute and core strength
--- NOTE | 2020-10-18 10:30 | PT.OTN ---
Current Diagnoses Spondylolisthesis, thoracic region (10/18/20) Other spondylosis with radiculopathy, lumbosacral region (10/18/20) Spinal stenosis, lumbar region without neurogenic claudication (10/18/20) Physical Therapy Treatment Note PT-OP-A Visit Information Start: 09/21/20 14:55 Freq: Status: Active Protocol: Document 10/18/20 09:48 SP (Rec: 10/18/20 11:51 SP [id number]) Out-Patient Physical Therapy Visit Information Visit Information Visit Type Treatment Note Visit Note 01/15 Pt 3 min late for appt Visit Start Time 09:48 Visit Stop Time 10:30 Total Visit Minutes 42 Visit Number 7 Number of QUARRY EQUIPMENT OPERATOR Visits 2 PT-OP-B Current Condition Start: 09/21/20 14:55 Freq: Status: Active Protocol: Document 09/23/20 08:19 [facility] (Rec: 09/23/20 09:10 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 In Mar 2020 , she was squatted down and went to straighten a board under a euthenized horse as they were getting her onto the flat bed. Next day, was having excrutiating back pain into RLE to knee and topher tto the hospital on Mar 18. She went to see Dr. Ching Mar 25 and he took an Xray and on the took a MRI of back and returned ot see Dr. Ching who told her if she didn't have the back surgery, she would be paralyzed. Pt had problems w/ feet where h would have to stop walking d/t feet bothering her in Feb 2019 when went back to work. 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 Pt wears new balance shoes at work typically and periodontal assistant checked feet after pain started in feet. Feet started feeling better w/orthotics from periodontal assistant but back started to irritate. She has not been wearing shoes since surgery d/t it feels like she is wearing something so tight and cutting off circulation and her feet feel ice cold. She avoid BLT for month after surgery like the said and then started 1.5 months after d/t concern of loosing ROM. THe heaviest thing she has picked up was a sewing box so far. Pt has been walking w/FWW but is starting to occ use cane for small distances or nothing in the house. She uses a power cart in stores. THe past 2 weeks is when she started to dec cane & FWW use except when seh leaves the house. Pt had a twisted bowel October 26, 2018 and had surgery and was hospitalized. Pt has too much pain after getting out of bed but feels okay getting off couch so has been sleeping on couch. She has vertigo that when seh lays on L side, it affects her. Pt cannot tolerate cold. Dgt concerned that pt has not returned back to work at [employer] and told her she would feel like she was 40 after the surgery. Future Testing and Treatments Planned Dgt wants to take pt to DO Treatment Goals Patient/Caregiver Goals return to work, walk better PT-OP-C Subjective Start: 09/21/20 14:55 Freq: Status: Active Protocol: Document 10/18/20 09:48 SP (Rec: 10/18/20 11:51 SP [id number]) OP-PT Subjective Patient Comments Patient Comments Pt stated is pretty tired after gets home from PT and doesn't sleep well and L foot falls asleep like in ice water, tingling/numb, feels really tight like cut off circulation since surgery, not able to wear her new balance, sleeps at night lately and naps on couch due to able to get up from that surface than her bed. Pt states compliant with standing and laying down exercises. PT-OP-F Manual Assessment Start: 09/21/20 14:55 Freq: Status: Active Protocol: Document 09/23/20 08:19 [facility] (Rec: 09/23/20 09:10 [facility] [id number]) Manual Assessments Soft Tissue Assessment Soft Tissue Mobility Assessment significant scar immobility, pain w/QL & ES palpation Joint Mobility Assessment Joint Mobility Assessment slight inc iliac crest height on R in standing PT-OP-G Mobility & Gait Start: 09/21/20 14:55 Freq: Status: Active Protocol: Document 09/23/20 08:19 [facility] (Rec: 09/23/20 09:10 [facility] [id number]) OP Mobility Evaluation Bed Mobility Supine to and from Sit log roll technique used OP Gait Assessment Comments Gait Comments Fwd leaning onto FWW PT-OP-J Posture/Palpation/Skin Start: 09/21/20 14:55 Freq: Status: Active Protocol: Document 09/23/20 08:19 [facility] (Rec: 09/23/20 09:10 [facility] [id number]) Posture Evaluation Comments Posture Comments inc kyphosis, fwd lean w/ walker PT-OP-K Range of Motion Start: 09/21/20 14:55 Freq: Status: Active Protocol: Document 09/23/20 08:19 [facility] (Rec: 09/23/20 09:10 [facility] [id number]) Lumbar Spine Range of Motion Lumbar Spine Active Degrees Flexion 40 Rotation Left 49 Rotation Right 54 Lateral Flexion Left 4 Lateral Flexion Right 8 Comments unable to extend even to neutral PT-OP-L Special Tests Start: 09/21/20 14:55 Freq: Status: Active Protocol: Document 09/23/20 08:19 [facility] (Rec: 09/23/20 09:10 [facility] [id number]) Special Tests Lumbar Spine Special Tests Slump Test Results L positive PT-OP-M Strength Start: 09/21/20 14:55 Freq: Status: Active Protocol: Document 09/23/20 08:19 [facility] (Rec: 09/23/20 09:10 [facility] [id number]) Hip Strength Hip Manual Muscle Testing Right Flexion (L2) 4 Good External Rotation 3 Fair Internal Rotation 3 Fair Comments abd not tested d/t pt cannot lay on L side Left Flexion (L2) 4 Good Abduction 2+ Poor+ External Rotation 4- Good- Internal Rotation 3 Fair Knee Strength Knee Manual Muscle Testing Right Flexion (S2) 5 Normal Extension (L3) 5 Normal Left Flexion (S2) 5 Normal Extension (L3) 5 Normal Ankle/Foot Strength Ankle and Foot Manual Muscle Testing Right Dorsiflexion (L4) 5 Normal Plantarflexion (S1) 5 Normal Left Dorsiflexion (L4) 5 Normal Plantarflexion (S1) 5 Normal Comments PF tested seated PT-OP-Q Treatments Start: 09/21/20 14:55 Freq: Status: Active Protocol: Document 10/18/20 09:48 SP (Rec: 10/18/20 11:51 SP [id number]) Cardio Equipment Recumbent Stepper (Sci-Fit) Duration (Minutes) 6 Resistance 2 Seat Position 9 Other SPM 62, miles 0.78 Therapeutic Exercises Supine Exercises LTR Side bilateral Reps/Minutes 5x5 sec Comments good slow pacing and response sciatic nerve glide Supine Exercise Name grasp behind thigh w/ ankle pump Side left Resistance AROM Reps/Minutes 3x10 Comments good tolerance- little pressure LB better adjust Lowe leg bridge Supine Exercise Name w/PT traction facilitiaton at knees & cues for glutes Side bilateral Reps/Minutes 2x5 pelvic tilt Supine Exercise Name post w/ TA engagement Reps/Minutes 10sec x5 Comments cued TA and PPT tolerance of no LB recruitment Stretch Supine Exercise Name Next tx add pirformis seated stretch to assist pant donning w/out help Side right Standing Exercises step ups Side bilateral Equipment Used L HR Reps/Minutes x10 each LE Comments cued upright posture and glut fac COG over ELENA sidestep Side bilateral Equipment Used yellow tband Reps/Minutes 10ft x3 laps Comments cued PPT, core facilitation hip abd Side bilateral Reps/Minutes 10 Comments focus on core and posture hip ext Side bilateral Reps/Minutes 10 Comments focus on core and posture Hip Flexor Stretch Side bilateral Reps/Minutes 30 sec ea x2 PT-OP-R Modalities Start: 09/21/20 14:55 Freq: Status: Active Protocol: Document 10/15/20 09:50 MA (Rec: 10/15/20 10:35 MA [id number]) Hot Pack/Cold Pack Treatment Hot Pack Location lumbar Patient Position Hooklying Treatment Duration (minutes) 15 PT-OP-T Assessment and Plan Start: 09/21/20 14:55 Freq: Status: Active Protocol: Document 10/18/20 09:48 SP (Rec: 10/18/20 11:51 SP [id number]) Physical Therapy Assessment Goals lifting Short Term Goal (STG) Pt will be able to lift light weights with good mechanics. STG Duration 10/24/20 Manager Professional Development Goal (LTG) Pt will be able to lift 20 lbs safely and comfortably with good mechanics. 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 LTG Duration 11/23/20 strength Short Term Goal (STG) Pt will be indep with HEP STG Duration 10/24/20 Shelter Goal (LTG) Pt will score at least 4+/5 for all LE MMT and 3/5 w/LPM to show imrpoved stability and allow pt do typical functions and return to work. LTG Duration 11/23/20 gait Short Term Goal (STG) Pt will be able to walk with good gait mechanics w/o AD consistantly. STG Duration 10/24/20 Shelter Goal (LTG) Pt will be able to walk stores and longer distances without need for AD or something to lean on d/t pain/back fatigue. LTG Duration 11/23/20 Assessment Summary Assessment Pt responded well to TA and core stabilization, initiated supine LTR for decreased LB achy and tightness with good response added to HEP. Cuing required for PPT and core facilitation during standing HEP review. Initiated step ups 1 HR for core and glut facilitation with good response, continue in PT only due to no HR at home for safe performance. Physical Therapy Plan Frequency and Duration Frequency of Treatment 2x/Week Duration of Treatment 3 months Plan of Care Start Date 09/23/20 Plan of Care End Date 12/24/20 Therapeutic Interventions Therapeutic Interventions Aquatic Therapy,Balance Training,Gait Training,Home Exercise Program,Joint Mobilizations,Manual Therapy, Neuromuscular Re-education, Patient/Caregiver Education, Self-Care/Home Management,Soft Tissue Mobilization,Taping, Therapeutic Activities, Therapeutic Exercises Modalities Cold Pack/Ice Massage,Electric Stimulation,Hot Packs, Ultrasound Next Visit Focus/Plan Next Note Type Treatment Note Next Visit Plan Assess response to sciatic nerve glide, LTR, bridging standing HEP and initiated step ups. Cont per PT Plan: to work on posture in standing and work on glute and core strength
--- NOTE | 2020-10-28 10:35 | PT.OTN ---
Current Diagnoses Spondylolisthesis, thoracic region (10/28/20) Other spondylosis with radiculopathy, lumbosacral region (10/28/20) Spinal stenosis, lumbar region without neurogenic claudication (10/28/20) Physical Therapy Treatment Note PT-OP-A Visit Information Start: 09/21/20 14:55 Freq: Status: Active Protocol: Document 10/28/20 09:59 [facility] (Rec: 10/28/20 10:22 [facility] [id number]) Out-Patient Physical Therapy Visit Information Visit Information Visit Type Treatment Note Visit Note 02/15 Visit Start Time 09:55 Visit Stop Time 10:48 Total Visit Minutes 53 Visit Number 8 Number of POPCORN MACHINE OPERATOR Visits 0 PT-OP-B Current Condition Start: 09/21/20 14:55 Freq: Status: Active Protocol: Document 09/23/20 08:19 [facility] (Rec: 09/23/20 09:10 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 In Mar 2020 , she was squatted down and went to straighten a board under a euthenized horse as they were getting her onto the flat bed. Next day, was having excrutiating back pain into RLE to knee and topher tto the hospital on Mar 18. She went to see Dr. Ching Mar 25 and he took an Xray and on the took a MRI of back and returned ot see Dr. Ching who told her if she didn't have the back surgery, she would be paralyzed. Pt had problems w/ feet where h would have to stop walking d/t feet bothering her in Feb 2019 when went back to work. 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 Pt wears new balance shoes at work typically and escalator service mechanic checked feet after pain started in feet. Feet started feeling better w/orthotics from escalator service mechanic but back started to irritate. She has not been wearing shoes since surgery d/t it feels like she is wearing something so tight and cutting off circulation and her feet feel ice cold. She avoid BLT for month after surgery like the MD said and then started 1.5 months after d/t concern of loosing ROM. THe heaviest thing she has picked up was a sewing box so far. Pt has been walking w/FWW but is starting to occ use cane for small distances or nothing in the house. She uses a power cart in stores. THe past 2 weeks is when she started to dec cane & FWW use except when seh leaves the house. Pt had a twisted bowel October 26, 2018 and had surgery and was hospitalized. Pt has too much pain after getting out of bed but feels okay getting off couch so has been sleeping on couch. She has vertigo that when seh lays on L side, it affects her. Pt cannot tolerate cold. Dgt concerned that pt has not returned back to work at [employer] and told her she would feel like she was 40 after the surgery. Future Testing and Treatments Planned Dgt wants to take pt to DO Treatment Goals Patient/Caregiver Goals return to work, walk better PT-OP-C Subjective Start: 09/21/20 14:55 Freq: Status: Active Protocol: Document 10/28/20 09:59 [facility] (Rec: 10/28/20 10:22 [facility] [id number]) OP-PT Subjective Patient Comments Patient Comments Pt reprots back pain worse when it is rainy and cold. She has an appt in December with ortho and also primary doctor. She is hoping to return back to work in January. Feet still have a numby and tingly feeling PT-OP-F Manual Assessment Start: 09/21/20 14:55 Freq: Status: Active Protocol: Document 09/23/20 08:19 [facility] (Rec: 09/23/20 09:10 [facility] [id number]) Manual Assessments Soft Tissue Assessment Soft Tissue Mobility Assessment significant scar immobility, pain w/QL & ES palpation Joint Mobility Assessment Joint Mobility Assessment slight inc iliac crest height on R in standing PT-OP-G Mobility & Gait Start: 09/21/20 14:55 Freq: Status: Active Protocol: Document 09/23/20 08:19 [facility] (Rec: 09/23/20 09:10 [facility] [id number]) OP Mobility Evaluation Bed Mobility Supine to and from Sit log roll technique used OP Gait Assessment Comments Gait Comments Fwd leaning onto FWW PT-OP-J Posture/Palpation/Skin Start: 09/21/20 14:55 Freq: Status: Active Protocol: Document 09/23/20 08:19 [facility] (Rec: 09/23/20 09:10 [facility] [id number]) Posture Evaluation Comments Posture Comments inc kyphosis, fwd lean w/ walker PT-OP-K Range of Motion Start: 09/21/20 14:55 Freq: Status: Active Protocol: Document 09/23/20 08:19 [facility] (Rec: 09/23/20 09:10 [facility] [id number]) Lumbar Spine Range of Motion Lumbar Spine Active Degrees Flexion 40 Rotation Left 49 Rotation Right 54 Lateral Flexion Left 4 Lateral Flexion Right 8 Comments unable to extend even to neutral PT-OP-L Special Tests Start: 09/21/20 14:55 Freq: Status: Active Protocol: Document 09/23/20 08:19 [facility] (Rec: 09/23/20 09:10 [facility] [id number]) Special Tests Lumbar Spine Special Tests Slump Test Results L positive PT-OP-M Strength Start: 09/21/20 14:55 Freq: Status: Active Protocol: Document 09/23/20 08:19 [facility] (Rec: 09/23/20 09:10 [facility] [id number]) Hip Strength Hip Manual Muscle Testing Right Flexion (L2) 4 Good External Rotation 3 Fair Internal Rotation 3 Fair Comments abd not tested d/t pt cannot lay on L side Left Flexion (L2) 4 Good Abduction 2+ Poor+ External Rotation 4- Good- Internal Rotation 3 Fair Knee Strength Knee Manual Muscle Testing Right Flexion (S2) 5 Normal Extension (L3) 5 Normal Left Flexion (S2) 5 Normal Extension (L3) 5 Normal Ankle/Foot Strength Ankle and Foot Manual Muscle Testing Right Dorsiflexion (L4) 5 Normal Plantarflexion (S1) 5 Normal Left Dorsiflexion (L4) 5 Normal Plantarflexion (S1) 5 Normal Comments PF tested seated PT-OP-Q Treatments Start: 09/21/20 14:55 Freq: Status: Active Protocol: Document 10/28/20 09:59 [facility] (Rec: 10/28/20 10:22 [facility] [id number]) Cardio Equipment Recumbent Elliptical ([employer]) Duration (Minutes) 6 Resistance 6-7 Seat Position 6 Gym Equipment Shuttle Balance blue clips Comments fwd: WBOS & NBOS w/head turns, staggered stance B side : WBOS Therapeutic Exercises Supine Exercises LTR Side bilateral Reps/Minutes 5x5 sec Comments good slow pacing and response sciatic nerve glide Supine Exercise Name grasp behind thigh w/towel & ankle pump Side bilateral Resistance AROM Reps/Minutes 10 bridge Supine Exercise Name cues for glutes Side bilateral Reps/Minutes 10 pelvic tilt Supine Exercise Name post w/ TA engagement Reps/Minutes 10sec x5 Comments cued TA and PPT tolerance of no LB recruitment Sitting Exercises piriformis stretch Reps/Minutes add for next session Standing Exercises step ups Standing Exercise Name 5 in Side bilateral Equipment Used L HR Reps/Minutes x10 each LE Comments cued upright posture and glut fac COG over ELENA Manual Therapy Treatment Soft Tissue Mobilization Scar Body Location Posterior LB scar, paraspinals B, QL B Mobilization Type Rolling Intensity/Depth Moderate Body Position R Sidelying PT-OP-R Modalities Start: 09/21/20 14:55 Freq: Status: Active Protocol: Document 10/28/20 10:22 [facility] (Rec: 10/28/20 10:23 [facility] [id number]) Hot Pack/Cold Pack Treatment Hot Pack Location lumbar Patient Position Hooklying Treatment Duration (minutes) 15 PT-OP-T Assessment and Plan Start: 09/21/20 14:55 Freq: Status: Active Protocol: Document 10/28/20 09:59 [facility] (Rec: 10/28/20 10:22 [facility] [id number]) Physical Therapy Assessment Goals lifting Short Term Goal (STG) Pt will be able to lift light weights with good mechanics. STG Duration 10/24/20 Penitentiary Goal (LTG) Pt will be able to lift 20 lbs safely and comfortably with good mechanics. 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 LTG Duration 11/23/20 strength Short Term Goal (STG) Pt will be indep with HEP STG Duration 10/24/20 Real Estate Underwriter Goal (LTG) Pt will score at least 4+/5 for all LE MMT and 3/5 w/LPM to show imrpoved stability and allow pt do typical functions and return to work. LTG Duration 11/23/20 gait Short Term Goal (STG) Pt will be able to walk with good gait mechanics w/o AD consistantly. STG Duration 10/24/20 Penitentiary Goal (LTG) Pt will be able to walk stores and longer distances without need for AD or something to lean on d/t pain/back fatigue. LTG Duration 11/23/20 Assessment Summary Assessment Pt did better with exercises today with less cueing reqiured. She was challenge with balance board and required cueing for core & posture. Physical Therapy Plan Frequency and Duration Frequency of Treatment 2x/Week Duration of Treatment 3 months Plan of Care Start Date 09/23/20 Plan of Care End Date 12/24/20 Next Visit Focus/Plan Next Note Type Treatment Note Next Visit Plan cont to work on posture in standing and work on glute and core strength
--- NOTE | 2020-11-04 10:31 | PT.OTN ---
Current Diagnoses Spondylolisthesis, thoracic region (11/04/20) Other spondylosis with radiculopathy, lumbosacral region (11/04/20) Spinal stenosis, lumbar region without neurogenic claudication (11/04/20) Physical Therapy Treatment Note PT-OP-A Visit Information Start: 09/21/20 14:55 Freq: Status: Active Protocol: Document 11/04/20 09:52 [facility] (Rec: 11/04/20 09:54 [facility] [id number]) Out-Patient Physical Therapy Visit Information Visit Information Visit Type Treatment Note Visit Start Time 09:48 Visit Stop Time 10:43 Total Visit Minutes 55 Visit Number 9 Number of HORSE RACE STARTER Visits 0 PT-OP-B Current Condition Start: 09/21/20 14:55 Freq: Status: Active Protocol: Document 09/23/20 08:19 [facility] (Rec: 09/23/20 09:10 [facility] [id number]) Current Condition History of Current Condition Onset Date Jun 14 surgery, worsening back pain mar 18 Current Complaints L4-5, L5-S1 TLIF History of Current Condition 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 In Mar 2020 , she was squatted down and went to straighten a board under a euthenized horse as they were getting her onto the flat bed. Next day, was having excrutiating back pain into RLE to knee and topher tto the hospital on Mar 18. She went to see Dr. Ching Mar 25 and he took an Xray and on the took a MRI of back and returned ot see Dr. Ching who told her if she didn't have the back surgery, she would be paralyzed. Pt had problems w/ feet where seh would have to stop walking d/t feet bothering her in Feb 2019 when went back to work. 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 Pt wears new balance shoes at work typically and warp knitting machine operator checked feet after pain started in feet. Feet started feeling better w/orthotics from warp knitting machine operator but back started to irritate. She has not been wearing shoes since surgery d/t it feels like she is wearing something so tight and cutting off circulation and her feet feel ice cold. She avoid BLT for month after surgery like the MD said and then started 1.5 months after d/t concern of loosing ROM. THe heaviest thing she has picked up was a sewing box so far. Pt has been walking w/FWW but is starting to occ use cane for small distances or nothing in the house. She uses a power cart in stores. THe past 2 weeks is when she started to dec cane & FWW use except when seh leaves the house. Pt had a twisted bowel October 26, 2018 and had surgery and was hospitalized. Pt has too much pain after getting out of bed but feels okay getting off couch so has been sleeping on couch. She has vertigo that when seh lays on L side, it affects her. Pt cannot tolerate cold. Dgt concerned that pt has not returned back to work at [employer] and told her she would feel like she was 40 after the surgery. Future Testing and Treatments Planned Dgt wants to take pt to DO Treatment Goals Patient/Caregiver Goals return to work, walk better PT-OP-C Subjective Start: 09/21/20 14:55 Freq: Status: Active Protocol: Document 11/04/20 09:52 [facility] (Rec: 11/04/20 09:54 [facility] [id number]) OP-PT Subjective Patient Comments Patient Comments Pt reports mostly aching, november 09-11/15 PT-OP-F Manual Assessment Start: 09/21/20 14:55 Freq: Status: Active Protocol: Document 09/23/20 08:19 [facility] (Rec: 09/23/20 09:10 [facility] [id number]) Manual Assessments Soft Tissue Assessment Soft Tissue Mobility Assessment significant scar immobility, pain w/QL & ES palpation Joint Mobility Assessment Joint Mobility Assessment slight inc iliac crest height on R in standing PT-OP-G Mobility & Gait Start: 09/21/20 14:55 Freq: Status: Active Protocol: Document 09/23/20 08:19 [facility] (Rec: 09/23/20 09:10 [facility] [id number]) OP Mobility Evaluation Bed Mobility Supine to and from Sit log roll technique used OP Gait Assessment Comments Gait Comments Fwd leaning onto FWW PT-OP-J Posture/Palpation/Skin Start: 09/21/20 14:55 Freq: Status: Active Protocol: Document 09/23/20 08:19 [facility] (Rec: 09/23/20 09:10 [facility] [id number]) Posture Evaluation Comments Posture Comments inc kyphosis, fwd lean w/ walker PT-OP-K Range of Motion Start: 09/21/20 14:55 Freq: Status: Active Protocol: Document 09/23/20 08:19 [facility] (Rec: 09/23/20 09:10 [facility] [id number]) Lumbar Spine Range of Motion Lumbar Spine Active Degrees Flexion 40 Rotation Left 49 Rotation Right 54 Lateral Flexion Left 4 Lateral Flexion Right 8 Comments unable to extend even to neutral PT-OP-L Special Tests Start: 09/21/20 14:55 Freq: Status: Active Protocol: Document 09/23/20 08:19 [facility] (Rec: 09/23/20 09:10 [facility] [id number]) Special Tests Lumbar Spine Special Tests Slump Test Results L positive PT-OP-M Strength Start: 09/21/20 14:55 Freq: Status: Active Protocol: Document 09/23/20 08:19 [facility] (Rec: 09/23/20 09:10 [facility] [id number]) Hip Strength Hip Manual Muscle Testing Right Flexion (L2) 4 Good External Rotation 3 Fair Internal Rotation 3 Fair Comments abd not tested d/t pt cannot lay on L side Left Flexion (L2) 4 Good Abduction 2+ Poor+ External Rotation 4- Good- Internal Rotation 3 Fair Knee Strength Knee Manual Muscle Testing Right Flexion (S2) 5 Normal Extension (L3) 5 Normal Left Flexion (S2) 5 Normal Extension (L3) 5 Normal Ankle/Foot Strength Ankle and Foot Manual Muscle Testing Right Dorsiflexion (L4) 5 Normal Plantarflexion (S1) 5 Normal Left Dorsiflexion (L4) 5 Normal Plantarflexion (S1) 5 Normal Comments PF tested seated PT-OP-Q Treatments Start: 09/21/20 14:55 Freq: Status: Active Protocol: Document 11/04/20 09:52 [facility] (Rec: 11/04/20 09:54 [facility] [id number]) Cardio Equipment Recumbent Elliptical ([employer]) Duration (Minutes) 6 Resistance 6-7 Seat Position 6 Gym Equipment Shuttle Recovery Bilateral Squats Resistance 87# Shuttle Recovery Platform Stable Reps/Time 2x12 Shuttle Balance blue clips Comments fwd: WBOS & NBOS w/head turns, staggered stance B side : WBOS Therapeutic Exercises Sitting Exercises piriformis stretch Sitting Exercise Name figure 4 Side bilateral Reps/Minutes 30 sec Standing Exercises step ups Standing Exercise Name 5 in Side bilateral Equipment Used L HR Reps/Minutes x10 each LE Comments cued upright posture and glut fac COG over ELENA sidestep Side bilateral Equipment Used yellow tband Reps/Minutes 20ftx2 Comments cued PPT, core facilitation Manual Therapy Treatment Soft Tissue Mobilization Scar Body Location Posterior LB scar, paraspinals B, QL B Mobilization Type Rolling Intensity/Depth Moderate Body Position R Sidelying Neuro Re-Education Treatment Balance Activities tandem stance Details trials B PT-OP-R Modalities Start: 09/21/20 14:55 Freq: Status: Active Protocol: Document 11/04/20 09:52 [facility] (Rec: 11/04/20 09:54 [facility] [id number]) Hot Pack/Cold Pack Treatment Hot Pack Location lumbar Patient Position Hooklying Treatment Duration (minutes) 15 PT-OP-T Assessment and Plan Start: 09/21/20 14:55 Freq: Status: Active Protocol: Document 11/04/20 09:52 [facility] (Rec: 11/04/20 09:54 [facility] [id number]) Physical Therapy Assessment Goals lifting Short Term Goal (STG) Pt will be able to lift light weights with good mechanics. STG Duration 10/24/20 Oil Refiner Goal (LTG) Pt will be able to lift 20 lbs safely and comfortably with good mechanics. 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 LTG Duration 11/23/20 strength Short Term Goal (STG) Pt will be indep with HEP STG Duration 10/24/20 Oil Refiner Goal (LTG) Pt will score at least 4+/5 for all LE MMT and 3/5 w/LPM to show imrpoved stability and allow pt do typical functions and return to work. LTG Duration 11/23/20 gait Short Term Goal (STG) Pt will be able to walk with good gait mechanics w/o AD consistantly. STG Duration 10/24/20 Oil Refiner Goal (LTG) Pt will be able to walk stores and longer distances without need for AD or something to lean on d/t pain/back fatigue. LTG Duration 11/23/20 Assessment Summary Assessment Pt did well with inc time w/ standing exercises and was able to add seated stretch comfortably. COnt to work on glute stability to improve ability to walk better w/less lat trunk leaning. Physical Therapy Plan Frequency and Duration Frequency of Treatment 2x/Week Duration of Treatment 3 months Plan of Care Start Date 09/23/20 Plan of Care End Date 12/24/20 Next Visit Focus/Plan Next Note Type Treatment Note Next Visit Plan cont to work on posture in standing and work on glute and core strength
--- NOTE | 2020-11-11 09:45 | PT.OTN ---
Current Diagnoses Spondylolisthesis, thoracic region (11/11/20) Other spondylosis with radiculopathy, lumbosacral region (11/11/20) Spinal stenosis, lumbar region without neurogenic claudication (11/11/20) Physical Therapy Treatment Note PT-OP-A Visit Information Start: 09/21/20 14:55 Freq: Status: Active Protocol: Document 11/11/20 08:44 [facility] (Rec: 11/11/20 09:36 [facility] [id number]) Out-Patient Physical Therapy Visit Information Visit Information Visit Type Treatment Note Visit Start Time 09:16 Visit Stop Time 10:00 Total Visit Minutes 44 Visit Number 10 Number of SEMICONDUCTOR LAB TECHNICIAN Visits 0 PT-OP-B Current Condition Start: 09/21/20 14:55 Freq: Status: Active Protocol: Document 09/23/20 08:19 [facility] (Rec: 09/23/20 09:10 [facility] [id number]) Current Condition History of Current Condition Onset Date Jun 14 surgery, worsening back pain mar 18 Current Complaints L4-5, L5-S1 TLIF History of Current Condition 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 In Mar 2020 , she was squatted down and went to straighten a board under a euthenized horse as they were getting her onto the flat bed. Next day, was having excrutiating back pain into RLE to knee and topher tto the hospital on Mar 18. She went to see Dr. Ching Mar 25 and he took an Xray and on the took a MRI of back and returned ot see Dr. Ching who told her if she didn't have the back surgery, she would be paralyzed. Pt had problems w/ feet where seh would have to stop walking d/t feet bothering her in Feb 2019 when went back to work. 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 Pt wears new balance shoes at work typically and pelts skinner checked feet after pain started in feet. Feet started feeling better w/orthotics from pelts skinner but back started to irritate. She has not been wearing shoes since surgery d/t it feels like she is wearing something so tight and cutting off circulation and her feet feel ice cold. She avoid BLT for month after surgery like the MD said and then started 1.5 months after d/t concern of loosing ROM. THe heaviest thing she has picked up was a sewing box so far. Pt has been walking w/FWW but is starting to occ use cane for small distances or nothing in the house. She uses a power cart in stores. THe past 2 weeks is when she started to dec cane & FWW use except when seh leaves the house. Pt had a twisted bowel October 26, 2018 and had surgery and was hospitalized. Pt has too much pain after getting out of bed but feels okay getting off couch so has been sleeping on couch. She has vertigo that when seh lays on L side, it affects her. Pt cannot tolerate cold. Dgt concerned that pt has not returned back to work at [employer] and told her she would feel like she was 40 after the surgery. Future Testing and Treatments Planned Dgt wants to take pt to DO Treatment Goals Patient/Caregiver Goals return to work, walk better PT-OP-C Subjective Start: 09/21/20 14:55 Freq: Status: Active Protocol: Document 11/11/20 08:44 [facility] (Rec: 11/11/20 09:36 [facility] [id number]) OP-PT Subjective Patient Comments Patient Comments Pt reports back has been alright. Sometimes when seh is laying down like when goes to bed at night and has to get up to go to the bathroom, its real stiff. pt was tired out by just walking into [facility] to take care of something and back. She called re: feet and she was instructed to take 2 at night and one in AM and one in afternoon. She is not taking one in the afternoon d/ t it tiring her out. PT-OP-F Manual Assessment Start: 09/21/20 14:55 Freq: Status: Active Protocol: Document 09/23/20 08:19 [facility] (Rec: 09/23/20 09:10 [facility] [id number]) Manual Assessments Soft Tissue Assessment Soft Tissue Mobility Assessment significant scar immobility, pain w/QL & ES palpation Joint Mobility Assessment Joint Mobility Assessment slight inc iliac crest height on R in standing PT-OP-G Mobility & Gait Start: 09/21/20 14:55 Freq: Status: Active Protocol: Document 09/23/20 08:19 [facility] (Rec: 09/23/20 09:10 [facility] [id number]) OP Mobility Evaluation Bed Mobility Supine to and from Sit log roll technique used OP Gait Assessment Comments Gait Comments Fwd leaning onto FWW PT-OP-J Posture/Palpation/Skin Start: 09/21/20 14:55 Freq: Status: Active Protocol: Document 09/23/20 08:19 [facility] (Rec: 09/23/20 09:10 [facility] [id number]) Posture Evaluation Comments Posture Comments inc kyphosis, fwd lean w/ walker PT-OP-K Range of Motion Start: 09/21/20 14:55 Freq: Status: Active Protocol: Document 09/23/20 08:19 [facility] (Rec: 09/23/20 09:10 [facility] [id number]) Lumbar Spine Range of Motion Lumbar Spine Active Degrees Flexion 40 Rotation Left 49 Rotation Right 54 Lateral Flexion Left 4 Lateral Flexion Right 8 Comments unable to extend even to neutral PT-OP-L Special Tests Start: 09/21/20 14:55 Freq: Status: Active Protocol: Document 09/23/20 08:19 [facility] (Rec: 09/23/20 09:10 [facility] [id number]) Special Tests Lumbar Spine Special Tests Slump Test Results L positive PT-OP-M Strength Start: 09/21/20 14:55 Freq: Status: Active Protocol: Document 09/23/20 08:19 [facility] (Rec: 09/23/20 09:10 [facility] [id number]) Hip Strength Hip Manual Muscle Testing Right Flexion (L2) 4 Good External Rotation 3 Fair Internal Rotation 3 Fair Comments abd not tested d/t pt cannot lay on L side Left Flexion (L2) 4 Good Abduction 2+ Poor+ External Rotation 4- Good- Internal Rotation 3 Fair Knee Strength Knee Manual Muscle Testing Right Flexion (S2) 5 Normal Extension (L3) 5 Normal Left Flexion (S2) 5 Normal Extension (L3) 5 Normal Ankle/Foot Strength Ankle and Foot Manual Muscle Testing Right Dorsiflexion (L4) 5 Normal Plantarflexion (S1) 5 Normal Left Dorsiflexion (L4) 5 Normal Plantarflexion (S1) 5 Normal Comments PF tested seated PT-OP-Q Treatments Start: 09/21/20 14:55 Freq: Status: Active Protocol: Document 11/11/20 08:44 [facility] (Rec: 11/11/20 09:36 [facility] [id number]) Cardio Equipment Recumbent Elliptical (Biodex) Duration (Minutes) 5 Resistance 6-7 Seat Position 5 Gym Equipment Shuttle Recovery Bilateral Squats Resistance 87# Shuttle Recovery Platform Stable Reps/Time 2x12 Therapeutic Exercises Standing Exercises march Standing Exercise Name alt march Side bilateral Reps/Minutes 15 Comments rail step ups Standing Exercise Name 8 in Side bilateral Equipment Used L HR Reps/Minutes x10 each LE Comments cued upright posture and glut fac COG over ELENA sidestep Side bilateral Equipment Used yellow tband Reps/Minutes 20ftx2 Comments cued PPT, core facilitation Manual Therapy Treatment Soft Tissue Mobilization Scar Body Location Posterior LB scar, paraspinals B, QL B Mobilization Type Rolling Intensity/Depth Moderate Body Position R Sidelying PT-OP-R Modalities Start: 09/21/20 14:55 Freq: Status: Active Protocol: Document 11/11/20 08:44 [facility] (Rec: 11/11/20 09:36 [facility] [id number]) Hot Pack/Cold Pack Treatment Hot Pack Location lumbar Patient Position Hooklying Treatment Duration (minutes) 15 PT-OP-T Assessment and Plan Start: 09/21/20 14:55 Freq: Status: Active Protocol: Document 11/11/20 08:44 [facility] (Rec: 11/11/20 09:36 [facility] [id number]) Physical Therapy Assessment Goals lifting Short Term Goal (STG) Pt will be able to lift light weights with good mechanics. STG Duration 10/24/20 Usp Goal (LTG) Pt will be able to lift 20 lbs safely and comfortably with good mechanics. 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 LTG Duration 11/23/20 strength Short Term Goal (STG) Pt will be indep with HEP STG Duration 10/24/20 Usp Goal (LTG) Pt will score at least 4+/5 for all LE MMT and 3/5 w/LPM to show imrpoved stability and allow pt do typical functions and return to work. LTG Duration 11/23/20 gait Short Term Goal (STG) Pt will be able to walk with good gait mechanics w/o AD consistantly. STG Duration 10/24/20 Skip Pit Worker Goal (LTG) Pt will be able to walk stores and longer distances without need for AD or something to lean on d/t pain/back fatigue. LTG Duration 11/23/20 Assessment Summary Assessment Pt did well w inc height of step for stepups w/inc challenge. she still requires cues for posture and dec lat leaning with standing exercises. Physical Therapy Plan Frequency and Duration Frequency of Treatment 2x/Week Duration of Treatment 3 months Plan of Care Start Date 09/23/20 Plan of Care End Date 12/24/20 Next Visit Focus/Plan Next Note Type Treatment Note Next Visit Plan cont to work on posture in standing and work on glute and core strength
--- NOTE | 2020-11-18 10:43 | PT.OTN ---
Current Diagnoses Spondylolisthesis, thoracic region (11/18/20) Other spondylosis with radiculopathy, lumbosacral region (11/18/20) Spinal stenosis, lumbar region without neurogenic claudication (11/18/20) Physical Therapy Treatment Note PT-OP-A Visit Information Start: 09/21/20 14:55 Freq: Status: Active Protocol: Document 11/18/20 09:52 [facility] (Rec: 11/18/20 10:43 [facility] [id number]) Out-Patient Physical Therapy Visit Information Visit Information Visit Type Treatment Note Visit Start Time 09:49 Visit Stop Time 10:45 Total Visit Minutes 56 Visit Number 11 Number of COURIER DRIVER Visits 0 PT-OP-B Current Condition Start: 09/21/20 14:55 Freq: Status: Active Protocol: Document 09/23/20 08:19 [facility] (Rec: 09/23/20 09:10 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 In Mar 2020 , she was squatted down and went to straighten a board under a euthenized horse as they were getting her onto the flat bed. Next day, was having excrutiating back pain into RLE to knee and topher tto the hospital on Mar 18. She went to see Dr. Ching Mar 25 and he took an Xray and on the took a MRI of back and returned ot see Dr. Ching who told her if she didn't have the back surgery, she would be paralyzed. Pt had problems w/ feet where seh would have to stop walking d/t feet bothering her in Feb 2019 when went back to work. 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 Pt wears new balance shoes at work typically and knifer up checked feet after pain started in feet. Feet started feeling better w/orthotics from knifer up but back started to irritate. She has not been wearing shoes since surgery d/t it feels like she is wearing something so tight and cutting off circulation and her feet feel ice cold. She avoid BLT for month after surgery like the MD said and then started 1.5 months after d/t concern of loosing ROM. THe heaviest thing she has picked up was a sewing box so far. Pt has been walking w/FWW but is starting to occ use cane for small distances or nothing in the house. She uses a power cart in stores. THe past 2 weeks is when she started to dec cane & FWW use except when seh leaves the house. Pt had a twisted bowel October 26, 2018 and had surgery and was hospitalized. Pt has too much pain after getting out of bed but feels okay getting off couch so has been sleeping on couch. She has vertigo that when seh lays on L side, it affects her. Pt cannot tolerate cold. Dgt concerned that pt has not returned back to work at [employer] and told her she would feel like she was 40 after the surgery. Future Testing and Treatments Planned Dgt wants to take pt to DO Treatment Goals Patient/Caregiver Goals return to work, walk better PT-OP-C Subjective Start: 09/21/20 14:55 Freq: Status: Active Protocol: Document 11/18/20 09:52 [facility] (Rec: 11/18/20 10:43 [facility] [id number]) OP-PT Subjective Patient Comments Patient Comments Pt did some reorganizing and had to do a mix of sitting and standing and back did well. Pt has been walking and can do about .5 block before she fatigues in back and hips. PT-OP-F Manual Assessment Start: 09/21/20 14:55 Freq: Status: Active Protocol: Document 09/23/20 08:19 [facility] (Rec: 09/23/20 09:10 [facility] [id number]) Manual Assessments Soft Tissue Assessment Soft Tissue Mobility Assessment significant scar immobility, pain w/QL & ES palpation Joint Mobility Assessment Joint Mobility Assessment slight inc iliac crest height on R in standing PT-OP-G Mobility & Gait Start: 09/21/20 14:55 Freq: Status: Active Protocol: Document 09/23/20 08:19 [facility] (Rec: 09/23/20 09:10 [facility] [id number]) OP Mobility Evaluation Bed Mobility Supine to and from Sit log roll technique used OP Gait Assessment Comments Gait Comments Fwd leaning onto FWW PT-OP-J Posture/Palpation/Skin Start: 09/21/20 14:55 Freq: Status: Active Protocol: Document 09/23/20 08:19 [facility] (Rec: 09/23/20 09:10 [facility] [id number]) Posture Evaluation Comments Posture Comments inc kyphosis, fwd lean w/ walker PT-OP-K Range of Motion Start: 09/21/20 14:55 Freq: Status: Active Protocol: Document 09/23/20 08:19 [facility] (Rec: 09/23/20 09:10 [facility] [id number]) Lumbar Spine Range of Motion Lumbar Spine Active Degrees Flexion 40 Rotation Left 49 Rotation Right 54 Lateral Flexion Left 4 Lateral Flexion Right 8 Comments unable to extend even to neutral PT-OP-L Special Tests Start: 09/21/20 14:55 Freq: Status: Active Protocol: Document 09/23/20 08:19 [facility] (Rec: 09/23/20 09:10 [facility] [id number]) Special Tests Lumbar Spine Special Tests Slump Test Results L positive PT-OP-M Strength Start: 09/21/20 14:55 Freq: Status: Active Protocol: Document 09/23/20 08:19 [facility] (Rec: 09/23/20 09:10 [facility] [id number]) Hip Strength Hip Manual Muscle Testing Right Flexion (L2) 4 Good External Rotation 3 Fair Internal Rotation 3 Fair Comments abd not tested d/t pt cannot lay on L side Left Flexion (L2) 4 Good Abduction 2+ Poor+ External Rotation 4- Good- Internal Rotation 3 Fair Knee Strength Knee Manual Muscle Testing Right Flexion (S2) 5 Normal Extension (L3) 5 Normal Left Flexion (S2) 5 Normal Extension (L3) 5 Normal Ankle/Foot Strength Ankle and Foot Manual Muscle Testing Right Dorsiflexion (L4) 5 Normal Plantarflexion (S1) 5 Normal Left Dorsiflexion (L4) 5 Normal Plantarflexion (S1) 5 Normal Comments PF tested seated PT-OP-Q Treatments Start: 09/21/20 14:55 Freq: Status: Active Protocol: Document 11/18/20 09:52 [facility] (Rec: 11/18/20 10:43 [facility] [id number]) Cardio Equipment Recumbent Elliptical (Biodex) Duration (Minutes) 6 Resistance 7 Seat Position 5 Gym Equipment Shuttle Recovery Bilateral Squats Resistance 87# Shuttle Recovery Platform Stable Reps/Time 2x15 Shuttle Balance blue clips Details w/head turns Comments fwd: WBOS & NBOS , staggered stance B side : WBOS& NBOS Therapeutic Exercises Standing Exercises step ups Standing Exercise Name 8 in w/alt march Side bilateral Equipment Used L HR Reps/Minutes x10 each LE Comments cued upright posture and glut fac COG over ELENA sidestep Side bilateral Equipment Used yellow tband Reps/Minutes 20ftx2 Comments cued PPT, core facilitation Manual Therapy Treatment Soft Tissue Mobilization Scar Body Location Posterior LB scar, paraspinals B, QL B Mobilization Type Rolling Intensity/Depth Moderate Body Position R Sidelying Neuro Re-Education Treatment Balance Activities toe taps Details alt 12 in step Reps/Duration 10 B PT-OP-R Modalities Start: 09/21/20 14:55 Freq: Status: Active Protocol: Document 11/18/20 09:52 [facility] (Rec: 11/18/20 10:43 [facility] [id number]) Hot Pack/Cold Pack Treatment Hot Pack Location lumbar Patient Position Hooklying Treatment Duration (minutes) 15 PT-OP-T Assessment and Plan Start: 09/21/20 14:55 Freq: Status: Active Protocol: Document 11/18/20 09:52 [facility] (Rec: 11/18/20 10:43 [facility] [id number]) Physical Therapy Assessment Goals lifting Short Term Goal (STG) Pt will be able to lift light weights with good mechanics. STG Duration 10/24/20 Special Services Agent Goal (LTG) Pt will be able to lift 20 lbs safely and comfortably with good mechanics. 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 LTG Duration 11/23/20 strength Short Term Goal (STG) Pt will be indep with HEP STG Duration 10/24/20 Special Services Agent Goal (LTG) Pt will score at least 4+/5 for all LE MMT and 3/5 w/LPM to show imrpoved stability and allow pt do typical functions and return to work. LTG Duration 11/23/20 gait Short Term Goal (STG) Pt will be able to walk with good gait mechanics w/o AD consistantly. STG Duration 10/24/20 Special Services Agent Goal (LTG) Pt will be able to walk stores and longer distances without need for AD or something to lean on d/t pain/back fatigue. LTG Duration 11/23/20 Assessment Summary Assessment Pt had more difficulty w/SLS on LLE and fatigued more w/ step ups on LLE. She is doing well with progression of LE strength and balance and able to do more activity w/o c/o pain. Pt encouraged to do walks 2x/day to inc distance and tolerance and cont HEP daily. Physical Therapy Plan Frequency and Duration Frequency of Treatment 2x/Week Duration of Treatment 3 months Plan of Care Start Date 09/23/20 Plan of Care End Date 12/24/20 Next Visit Focus/Plan Next Note Type Treatment Note Next Visit Plan cont to work on posture in standing and work on glute and core strength
--- NOTE | 2020-11-25 10:38 | PT.OTN ---
Current Diagnoses Spondylolisthesis, thoracic region (11/25/20) Other spondylosis with radiculopathy, lumbosacral region (11/25/20) Spinal stenosis, lumbar region without neurogenic claudication (11/25/20) Physical Therapy Treatment Note PT-OP-A Visit Information Start: 09/21/20 14:55 Freq: Status: Active Protocol: Document 11/25/20 09:53 [facility] (Rec: 11/25/20 10:37 [facility] [id number]) Out-Patient Physical Therapy Visit Information Visit Information Visit Type Treatment Note Visit Start Time 09:48 Visit Stop Time 10:43 Total Visit Minutes 55 Visit Number 12 Number of EYE TECHNICIAN Visits 0 PT-OP-B Current Condition Start: 09/21/20 14:55 Freq: Status: Active Protocol: Document 09/23/20 08:19 [facility] (Rec: 09/23/20 09:10 [facility] [id number]) Current Condition History of Current Condition Onset Date Jun 14 surgery, worsening back pain mar 18 Current Complaints L4-5, L5-S1 TLIF History of Current Condition 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 In Mar 2020 , she was squatted down and went to straighten a board under a euthenized horse as they were getting her onto the flat bed. Next day, was having excrutiating back pain into RLE to knee and topher tto the hospital on Mar 18. She went to see Dr. Ching Mar 25 and he took an Xray and on the took a MRI of back and returned ot see Dr. Ching who told her if she didn't have the back surgery, she would be paralyzed. Pt had problems w/ feet where seh would have to stop walking d/t feet bothering her in Feb 2019 when went back to work. 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 Pt wears new balance shoes at work typically and software design analyst checked feet after pain started in feet. Feet started feeling better w/orthotics from software design analyst but back started to irritate. She has not been wearing shoes since surgery d/t it feels like she is wearing something so tight and cutting off circulation and her feet feel ice cold. She avoid BLT for month after surgery like the MD said and then started 1.5 months after d/t concern of loosing ROM. THe heaviest thing she has picked up was a sewing box so far. Pt has been walking w/FWW but is starting to occ use cane for small distances or nothing in the house. She uses a power cart in stores. THe past 2 weeks is when she started to dec cane & FWW use except when seh leaves the house. Pt had a twisted bowel October 26, 2018 and had surgery and was hospitalized. Pt has too much pain after getting out of bed but feels okay getting off couch so has been sleeping on couch. She has vertigo that when seh lays on L side, it affects her. Pt cannot tolerate cold. Dgt concerned that pt has not returned back to work at [employer] and told her she would feel like she was 40 after the surgery. Future Testing and Treatments Planned Dgt wants to take pt to DO Treatment Goals Patient/Caregiver Goals return to work, walk better PT-OP-C Subjective Start: 09/21/20 14:55 Freq: Status: Active Protocol: Document 11/25/20 09:53 [facility] (Rec: 11/25/20 10:37 [facility] [id number]) OP-PT Subjective Patient Comments Patient Comments Pt reports RLE hurting today into buttock and down leg into R Knee. She has had to sleep in her bed d/t friends staying with them which she thinks inc her pain. PT-OP-F Manual Assessment Start: 09/21/20 14:55 Freq: Status: Active Protocol: Document 09/23/20 08:19 [facility] (Rec: 09/23/20 09:10 [facility] [id number]) Manual Assessments Soft Tissue Assessment Soft Tissue Mobility Assessment significant scar immobility, pain w/QL & ES palpation Joint Mobility Assessment Joint Mobility Assessment slight inc iliac crest height on R in standing PT-OP-G Mobility & Gait Start: 09/21/20 14:55 Freq: Status: Active Protocol: Document 09/23/20 08:19 [facility] (Rec: 09/23/20 09:10 [facility] [id number]) OP Mobility Evaluation Bed Mobility Supine to and from Sit log roll technique used OP Gait Assessment Comments Gait Comments Fwd leaning onto FWW PT-OP-J Posture/Palpation/Skin Start: 09/21/20 14:55 Freq: Status: Active Protocol: Document 09/23/20 08:19 [facility] (Rec: 09/23/20 09:10 [facility] [id number]) Posture Evaluation Comments Posture Comments inc kyphosis, fwd lean w/ walker PT-OP-K Range of Motion Start: 09/21/20 14:55 Freq: Status: Active Protocol: Document 09/23/20 08:19 [facility] (Rec: 09/23/20 09:10 [facility] [id number]) Lumbar Spine Range of Motion Lumbar Spine Active Degrees Flexion 40 Rotation Left 49 Rotation Right 54 Lateral Flexion Left 4 Lateral Flexion Right 8 Comments unable to extend even to neutral PT-OP-L Special Tests Start: 09/21/20 14:55 Freq: Status: Active Protocol: Document 09/23/20 08:19 [facility] (Rec: 09/23/20 09:10 [facility] [id number]) Special Tests Lumbar Spine Special Tests Slump Test Results L positive PT-OP-M Strength Start: 09/21/20 14:55 Freq: Status: Active Protocol: Document 09/23/20 08:19 [facility] (Rec: 09/23/20 09:10 [facility] [id number]) Hip Strength Hip Manual Muscle Testing Right Flexion (L2) 4 Good External Rotation 3 Fair Internal Rotation 3 Fair Comments abd not tested d/t pt cannot lay on L side Left Flexion (L2) 4 Good Abduction 2+ Poor+ External Rotation 4- Good- Internal Rotation 3 Fair Knee Strength Knee Manual Muscle Testing Right Flexion (S2) 5 Normal Extension (L3) 5 Normal Left Flexion (S2) 5 Normal Extension (L3) 5 Normal Ankle/Foot Strength Ankle and Foot Manual Muscle Testing Right Dorsiflexion (L4) 5 Normal Plantarflexion (S1) 5 Normal Left Dorsiflexion (L4) 5 Normal Plantarflexion (S1) 5 Normal Comments PF tested seated PT-OP-Q Treatments Start: 09/21/20 14:55 Freq: Status: Active Protocol: Document 11/25/20 09:53 [facility] (Rec: 11/25/20 10:37 [facility] [id number]) Cardio Equipment Recumbent Elliptical (Biodex) Duration (Minutes) 6 Resistance 7 Seat Position 5 Gym Equipment Shuttle Recovery Bilateral Squats Resistance 87#, 100# Shuttle Recovery Platform Stable Reps/Time 2x15 Therapeutic Exercises Supine Exercises sciatic nerve glide Supine Exercise Name grasp behind thigh w/towel & ankle pump Side bilateral Resistance AROM Reps/Minutes 10 Stretch Supine Exercise Name piriformis Side bilateral Equipment Used towel Reps/Minutes 30 sec ea Sitting Exercises piriformis stretch Sitting Exercise Name figure 4 Side bilateral Reps/Minutes 30 sec Manual Therapy Treatment Soft Tissue Mobilization Glutes Body Location R Mobilization Type Rolling,Strumming,Sustained Pressure Intensity/Depth Moderate Body Position Prone Scar Body Location Posterior LB scar, paraspinals B, QL B Mobilization Type Rolling Intensity/Depth Moderate Body Position Prone PT-OP-R Modalities Start: 09/21/20 14:55 Freq: Status: Active Protocol: Document 11/25/20 09:53 [facility] (Rec: 11/25/20 10:37 [facility] [id number]) Hot Pack/Cold Pack Treatment Hot Pack Location lumbar Patient Position Hooklying Treatment Duration (minutes) 15 PT-OP-T Assessment and Plan Start: 09/21/20 14:55 Freq: Status: Active Protocol: Document 11/25/20 09:53 [facility] (Rec: 11/25/20 10:37 [facility] [id number]) Physical Therapy Assessment Goals lifting Short Term Goal (STG) Pt will be able to lift light weights with good mechanics. STG Duration 10/24/20 Half-Way Goal (LTG) Pt will be able to lift 20 lbs safely and comfortably with good mechanics. 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 LTG Duration 11/23/20 strength Short Term Goal (STG) Pt will be indep with HEP STG Duration 10/24/20 Heating Equipment Installer Goal (LTG) Pt will score at least 4+/5 for all LE MMT and 3/5 w/LPM to show imrpoved stability and allow pt do typical functions and return to work. LTG Duration 11/23/20 gait Short Term Goal (STG) Pt will be able to walk with good gait mechanics w/o AD consistantly. STG Duration 10/24/20 Heating Equipment Installer Goal (LTG) Pt will be able to walk stores and longer distances without need for AD or something to lean on d/t pain/back fatigue. LTG Duration 11/23/20 Assessment Summary Assessment Pt had dec RLE pain after doing stretching exercises and reminded of importance of performing these especially when painful. Pt able to tolerate inc in resistance w/ leg press w/o inc pain Physical Therapy Plan Frequency and Duration Frequency of Treatment 2x/Week Duration of Treatment 3 months Plan of Care Start Date 09/23/20 Plan of Care End Date 12/24/20 Next Visit Focus/Plan Next Note Type Treatment Note Next Visit Plan cont to work on posture in standing and work on glute and core strength
--- NOTE | 2020-12-01 10:34 | PT.OTN ---
Current Diagnoses Spondylolisthesis, thoracic region (12/01/20) Other spondylosis with radiculopathy, lumbosacral region (12/01/20) Spinal stenosis, lumbar region without neurogenic claudication (12/01/20) Physical Therapy Treatment Note PT-OP-A Visit Information Start: 09/21/20 14:55 Freq: Status: Active Protocol: Document 12/01/20 09:14 [facility] (Rec: 12/01/20 09:37 [facility] [id number]) Out-Patient Physical Therapy Visit Information Visit Information Visit Type Treatment Note Visit Start Time 09:05 Visit Stop Time 09:59 Total Visit Minutes 54 Visit Number 13 Number of ASSISTED LIVING ASSOCIATE Visits 0 PT-OP-B Current Condition Start: 09/21/20 14:55 Freq: Status: Active Protocol: Document 09/23/20 08:19 [facility] (Rec: 09/23/20 09:10 [facility] [id number]) Current Condition History of Current Condition Onset Date Jun 14 surgery, worsening back pain mar 18 Current Complaints L4-5, L5-S1 TLIF History of Current Condition 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 In Mar 2020 , she was squatted down and went to straighten a board under a euthenized horse as they were getting her onto the flat bed. Next day, was having excrutiating back pain into RLE to knee and topher tto the hospital on Mar 18. She went to see Dr. Ching Mar 25 and he took an Xray and on the took a MRI of back and returned ot see Dr. Ching who told her if she didn't have the back surgery, she would be paralyzed. Pt had problems w/ feet where seh would have to stop walking d/t feet bothering her in Feb 2019 when went back to work. 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 Pt wears new balance shoes at work typically and obgyn hospitalist physician checked feet after pain started in feet. Feet started feeling better w/orthotics from obgyn hospitalist physician but back started to irritate. She has not been wearing shoes since surgery d/t it feels like she is wearing something so tight and cutting off circulation and her feet feel ice cold. She avoid BLT for month after surgery like the MD said and then started 1.5 months after d/t concern of loosing ROM. THe heaviest thing she has picked up was a sewing box so far. Pt has been walking w/FWW but is starting to occ use cane for small distances or nothing in the house. She uses a power cart in stores. THe past 2 weeks is when she started to dec cane & FWW use except when seh leaves the house. Pt had a twisted bowel October 26, 2018 and had surgery and was hospitalized. Pt has too much pain after getting out of bed but feels okay getting off couch so has been sleeping on couch. She has vertigo that when seh lays on L side, it affects her. Pt cannot tolerate cold. Dgt concerned that pt has not returned back to work at [employer] and told her she would feel like she was 40 after the surgery. Future Testing and Treatments Planned Dgt wants to take pt to DO Treatment Goals Patient/Caregiver Goals return to work, walk better PT-OP-C Subjective Start: 09/21/20 14:55 Freq: Status: Active Protocol: Document 12/01/20 09:14 [facility] (Rec: 12/01/20 09:37 [facility] [id number]) OP-PT Subjective Patient Comments Patient Comments Pt walked a half block yesterday and the otherwise has been walking aroudn the house. PT-OP-F Manual Assessment Start: 09/21/20 14:55 Freq: Status: Active Protocol: Document 09/23/20 08:19 [facility] (Rec: 09/23/20 09:10 [facility] [id number]) Manual Assessments Soft Tissue Assessment Soft Tissue Mobility Assessment significant scar immobility, pain w/QL & ES palpation Joint Mobility Assessment Joint Mobility Assessment slight inc iliac crest height on R in standing PT-OP-G Mobility & Gait Start: 09/21/20 14:55 Freq: Status: Active Protocol: Document 09/23/20 08:19 [facility] (Rec: 09/23/20 09:10 [facility] [id number]) OP Mobility Evaluation Bed Mobility Supine to and from Sit log roll technique used OP Gait Assessment Comments Gait Comments Fwd leaning onto FWW PT-OP-J Posture/Palpation/Skin Start: 09/21/20 14:55 Freq: Status: Active Protocol: Document 09/23/20 08:19 [facility] (Rec: 09/23/20 09:10 [facility] [id number]) Posture Evaluation Comments Posture Comments inc kyphosis, fwd lean w/ walker PT-OP-K Range of Motion Start: 09/21/20 14:55 Freq: Status: Active Protocol: Document 09/23/20 08:19 [facility] (Rec: 09/23/20 09:10 [facility] [id number]) Lumbar Spine Range of Motion Lumbar Spine Active Degrees Flexion 40 Rotation Left 49 Rotation Right 54 Lateral Flexion Left 4 Lateral Flexion Right 8 Comments unable to extend even to neutral PT-OP-L Special Tests Start: 09/21/20 14:55 Freq: Status: Active Protocol: Document 09/23/20 08:19 [facility] (Rec: 09/23/20 09:10 [facility] [id number]) Special Tests Lumbar Spine Special Tests Slump Test Results L positive PT-OP-M Strength Start: 09/21/20 14:55 Freq: Status: Active Protocol: Document 09/23/20 08:19 [facility] (Rec: 09/23/20 09:10 [facility] [id number]) Hip Strength Hip Manual Muscle Testing Right Flexion (L2) 4 Good External Rotation 3 Fair Internal Rotation 3 Fair Comments abd not tested d/t pt cannot lay on L side Left Flexion (L2) 4 Good Abduction 2+ Poor+ External Rotation 4- Good- Internal Rotation 3 Fair Knee Strength Knee Manual Muscle Testing Right Flexion (S2) 5 Normal Extension (L3) 5 Normal Left Flexion (S2) 5 Normal Extension (L3) 5 Normal Ankle/Foot Strength Ankle and Foot Manual Muscle Testing Right Dorsiflexion (L4) 5 Normal Plantarflexion (S1) 5 Normal Left Dorsiflexion (L4) 5 Normal Plantarflexion (S1) 5 Normal Comments PF tested seated PT-OP-Q Treatments Start: 09/21/20 14:55 Freq: Status: Active Protocol: Document 12/01/20 09:14 [facility] (Rec: 12/01/20 09:37 [facility] [id number]) Cardio Equipment Recumbent Elliptical (Biodex) Duration (Minutes) 7 Resistance 7 Seat Position 5 Gym Equipment Shuttle Recovery Bilateral Squats Resistance 100# Shuttle Recovery Platform Stable Reps/Time 2x15 Shuttle Balance red clips Comments fwd & side : WBOS & NBOS Therapeutic Exercises Standing Exercises step ups Standing Exercise Name 8 in w/alt march Side bilateral Equipment Used L HR Reps/Minutes x10 each LE Comments cued upright posture and glut fac COG over ELENA sidestep Side bilateral Equipment Used red tband Reps/Minutes 20ft Comments cued PPT, core facilitation Manual Therapy Treatment Soft Tissue Mobilization Scar Body Location Posterior LB scar, paraspinals B, QL B Mobilization Type Rolling Intensity/Depth Moderate Body Position Prone Neuro Re-Education Treatment Balance Activities toe taps Details alt 12 in step Reps/Duration 2x8 B Self-Care/Home Management Treatment Education Other Education inc walking at home and cont HEP daily PT-OP-R Modalities Start: 09/21/20 14:55 Freq: Status: Active Protocol: Document 12/01/20 09:14 [facility] (Rec: 12/01/20 09:37 [facility] [id number]) Hot Pack/Cold Pack Treatment Hot Pack Location lumbar Patient Position Hooklying Treatment Duration (minutes) 15 PT-OP-T Assessment and Plan Start: 09/21/20 14:55 Freq: Status: Active Protocol: Document 12/01/20 09:14 [facility] (Rec: 12/01/20 09:37 [facility] [id number]) Physical Therapy Assessment Goals lifting Short Term Goal (STG) Pt will be able to lift light weights with good mechanics. STG Duration 10/24/20 Senior Living Goal (LTG) Pt will be able to lift 20 lbs safely and comfortably with good mechanics. LTG Duration 11/23/20 activities Short Term Goal (STG) Pt will be able to partiicpate in wallpaper consultant without inc pain greater than 3/10 or requiring seated rest breaks. 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 LTG Duration 11/23/20 strength Short Term Goal (STG) Pt will be indep with HEP STG Duration 10/24/20 Floorworker Goal (LTG) Pt will score at least 4+/5 for all LE MMT and 3/5 w/LPM to show imrpoved stability and allow pt do typical functions and return to work. LTG Duration 11/23/20 gait Short Term Goal (STG) Pt will be able to walk with good gait mechanics w/o AD consistantly. STG Duration 10/24/20 Senior Living Goal (LTG) Pt will be able to walk stores and longer distances without need for AD or something to lean on d/t pain/back fatigue. LTG Duration 11/23/20 Assessment Summary Assessment Pt did well with exercises and did well with advancement of balancw /balance barenee but definely was challenge.d She cont to show glute weakness on R which likely contributes to gait mechanics Physical Therapy Plan Frequency and Duration Frequency of Treatment 2x/Week Duration of Treatment 3 months Plan of Care Start Date 09/23/20 Plan of Care End Date 12/24/20 Next Visit Focus/Plan Next Note Type Treatment Note Next Visit Plan cont to work on posture in standing and work on glute and core strength
--- NOTE | 2020-12-15 11:15 | PT.OTN ---
Current Diagnoses Spondylolisthesis, thoracic region (12/15/20) Other spondylosis with radiculopathy, lumbosacral region (12/15/20) Spinal stenosis, lumbar region without neurogenic claudication (12/15/20) Physical Therapy Treatment Note PT-OP-A Visit Information Start: 09/21/20 14:55 Freq: Status: Active Protocol: Document 12/15/20 10:39 [facility] (Rec: 12/15/20 11:15 [facility] [id number]) Out-Patient Physical Therapy Visit Information Visit Information Visit Type Treatment Note Visit Start Time 10:32 Visit Stop Time 11:27 Total Visit Minutes 55 Visit Number 14 Number of LICENSED ACUPUNCTURIST Visits 0 PT-OP-B Current Condition Start: 09/21/20 14:55 Freq: Status: Active Protocol: Document 09/23/20 08:19 [facility] (Rec: 09/23/20 09:10 [facility] [id number]) Current Condition History of Current Condition Onset Date Jun 14 surgery, worsening back pain mar 18 Current Complaints L4-5, L5-S1 TLIF History of Current Condition 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 In Mar 2020 , she was squatted down and went to straighten a board under a euthenized horse as they were getting her onto the flat bed. Next day, was having excrutiating back pain into RLE to knee and topher tto the hospital on Mar 18. She went to see Dr. Ching Mar 25 and he took an Xray and on the took a MRI of back and returned ot see Dr. Ching who told her if she didn't have the back surgery, she would be paralyzed. Pt had problems w/ feet where seh would have to stop walking d/t feet bothering her in Feb 2019 when went back to work. 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 Pt wears new balance shoes at work typically and global position system technician checked feet after pain started in feet. Feet started feeling better w/orthotics from global position system technician but back started to irritate. She has not been wearing shoes since surgery d/t it feels like she is wearing something so tight and cutting off circulation and her feet feel ice cold. She avoid BLT for month after surgery like the MD said and then started 1.5 months after d/t concern of loosing ROM. THe heaviest thing she has picked up was a sewing box so far. Pt has been walking w/FWW but is starting to occ use cane for small distances or nothing in the house. She uses a power cart in stores. THe past 2 weeks is when she started to dec cane & FWW use except when seh leaves the house. Pt had a twisted bowel October 26, 2018 and had surgery and was hospitalized. Pt has too much pain after getting out of bed but feels okay getting off couch so has been sleeping on couch. She has vertigo that when seh lays on L side, it affects her. Pt cannot tolerate cold. Dgt concerned that pt has not returned back to work at [employer] and told her she would feel like she was 40 after the surgery. Future Testing and Treatments Planned Dgt wants to take pt to DO Treatment Goals Patient/Caregiver Goals return to work, walk better PT-OP-C Subjective Start: 09/21/20 14:55 Freq: Status: Active Protocol: Document 12/15/20 10:39 [facility] (Rec: 12/15/20 11:15 [facility] [id number]) OP-PT Subjective Patient Comments Patient Comments Pt repots doing a day of shopping where they shopped for [employer] and then went to the [employer] store for craft things. She did okayw ith that. Pt reprots she has days that are better than others. PT-OP-F Manual Assessment Start: 09/21/20 14:55 Freq: Status: Active Protocol: Document 09/23/20 08:19 [facility] (Rec: 09/23/20 09:10 [facility] [id number]) Manual Assessments Soft Tissue Assessment Soft Tissue Mobility Assessment significant scar immobility, pain w/QL & ES palpation Joint Mobility Assessment Joint Mobility Assessment slight inc iliac crest height on R in standing PT-OP-G Mobility & Gait Start: 09/21/20 14:55 Freq: Status: Active Protocol: Document 09/23/20 08:19 [facility] (Rec: 09/23/20 09:10 [facility] [id number]) OP Mobility Evaluation Bed Mobility Supine to and from Sit log roll technique used OP Gait Assessment Comments Gait Comments Fwd leaning onto FWW PT-OP-J Posture/Palpation/Skin Start: 09/21/20 14:55 Freq: Status: Active Protocol: Document 09/23/20 08:19 [facility] (Rec: 09/23/20 09:10 [facility] [id number]) Posture Evaluation Comments Posture Comments inc kyphosis, fwd lean w/ walker PT-OP-K Range of Motion Start: 09/21/20 14:55 Freq: Status: Active Protocol: Document 09/23/20 08:19 [facility] (Rec: 09/23/20 09:10 [facility] [id number]) Lumbar Spine Range of Motion Lumbar Spine Active Degrees Flexion 40 Rotation Left 49 Rotation Right 54 Lateral Flexion Left 4 Lateral Flexion Right 8 Comments unable to extend even to neutral PT-OP-L Special Tests Start: 09/21/20 14:55 Freq: Status: Active Protocol: Document 09/23/20 08:19 [facility] (Rec: 09/23/20 09:10 [facility] [id number]) Special Tests Lumbar Spine Special Tests Slump Test Results L positive PT-OP-M Strength Start: 09/21/20 14:55 Freq: Status: Active Protocol: Document 09/23/20 08:19 [facility] (Rec: 09/23/20 09:10 [facility] [id number]) Hip Strength Hip Manual Muscle Testing Right Flexion (L2) 4 Good External Rotation 3 Fair Internal Rotation 3 Fair Comments abd not tested d/t pt cannot lay on L side Left Flexion (L2) 4 Good Abduction 2+ Poor+ External Rotation 4- Good- Internal Rotation 3 Fair Knee Strength Knee Manual Muscle Testing Right Flexion (S2) 5 Normal Extension (L3) 5 Normal Left Flexion (S2) 5 Normal Extension (L3) 5 Normal Ankle/Foot Strength Ankle and Foot Manual Muscle Testing Right Dorsiflexion (L4) 5 Normal Plantarflexion (S1) 5 Normal Left Dorsiflexion (L4) 5 Normal Plantarflexion (S1) 5 Normal Comments PF tested seated PT-OP-Q Treatments Start: 09/21/20 14:55 Freq: Status: Active Protocol: Document 12/15/20 10:39 [facility] (Rec: 12/15/20 11:15 [facility] [id number]) Cardio Equipment Recumbent Elliptical (Biodex) Duration (Minutes) 8 Resistance 7 Seat Position 5 Gym Equipment Shuttle Recovery Bilateral Squats Resistance 112# Shuttle Recovery Platform Stable Reps/Time 2x15 Shuttle Balance red clips Comments fwd & side : WBOS & NBOS Therapeutic Exercises Standing Exercises step ups Standing Exercise Name 8 in w/alt march Side bilateral Equipment Used L HR for balance Reps/Minutes 2x6 Comments cued upright posture and glut fac COG over ELENA sidestep Side bilateral Equipment Used red tband Reps/Minutes 20ftx2 Comments cued PPT, core facilitation Manual Therapy Treatment Soft Tissue Mobilization Scar Body Location Posterior LB scar, paraspinals B, QL B Mobilization Type Rolling Intensity/Depth Moderate Body Position Prone Neuro Re-Education Treatment Balance Activities toe taps Details alt 12 in step Reps/Duration 15 B PT-OP-R Modalities Start: 09/21/20 14:55 Freq: Status: Active Protocol: Document 12/15/20 10:39 [facility] (Rec: 12/15/20 11:15 [facility] [id number]) Hot Pack/Cold Pack Treatment Hot Pack Location lumbar Patient Position Hooklying Treatment Duration (minutes) 15 PT-OP-T Assessment and Plan Start: 09/21/20 14:55 Freq: Status: Active Protocol: Document 12/15/20 10:39 [facility] (Rec: 12/15/20 11:15 [facility] [id number]) Physical Therapy Assessment Goals lifting Short Term Goal (STG) Pt will be able to lift light weights with good mechanics. STG Duration 10/24/20 Support Specialist Goal (LTG) Pt will be able to lift 20 lbs safely and comfortably with good mechanics. 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 LTG Duration 11/23/20 strength Short Term Goal (STG) Pt will be indep with HEP STG Duration 10/24/20 [facility] Goal (LTG) Pt will score at least 4+/5 for all LE MMT and 3/5 w/LPM to show imrpoved stability and allow pt do typical functions and return to work. LTG Duration 11/23/20 gait Short Term Goal (STG) Pt will be able to walk with good gait mechanics w/o AD consistantly. STG Duration 10/24/20 [facility] Goal (LTG) Pt will be able to walk stores and longer distances without need for AD or something to lean on d/t pain/back fatigue. LTG Duration 11/23/20 Assessment Summary Assessment Pt did better wtih step ups today with less use of rail today. She showed better balance with all stability exercises. She is tolerating progressive resistance without c/o inc pain. Physical Therapy Plan Frequency and Duration Frequency of Treatment 2x/Week Duration of Treatment 3 months Plan of Care Start Date 09/23/20 Plan of Care End Date 12/24/20 Next Visit Focus/Plan Next Note Type Progress Note Next Visit Plan cont to work on posture in standing and work on glute and core strength
--- NOTE | 2020-12-20 12:10 | PT.OTN ---
Current Diagnoses Spondylolisthesis, thoracic region (12/20/20) Other spondylosis with radiculopathy, lumbosacral region (12/20/20) Spinal stenosis, lumbar region without neurogenic claudication (12/20/20) Physical Therapy Treatment Note PT-OP-A Visit Information Start: 09/21/20 14:55 Freq: Status: Active Protocol: Document 12/20/20 10:12 [facility] (Rec: 12/20/20 11:05 [facility] [id number]) Out-Patient Physical Therapy Visit Information Visit Information Visit Type Treatment Note Visit Start Time 10:15 Visit Stop Time 11:15 Total Visit Minutes 60 Visit Number 15 Number of REAL ESTATE LEASING AGENT Visits 1 PT-OP-B Current Condition Start: 09/21/20 14:55 Freq: Status: Active Protocol: Document 09/23/20 08:19 [facility] (Rec: 09/23/20 09:10 [facility] [id number]) Current Condition History of Current Condition Onset Date Jun 14 surgery, worsening back pain mar 18 Current Complaints L4-5, L5-S1 TLIF History of Current Condition 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 In Mar 2020 , she was squatted down and went to straighten a board under a euthenized horse as they were getting her onto the flat bed. Next day, was having excrutiating back pain into RLE to knee and topher tto the hospital on Mar 18. She went to see Dr. Ching Mar 25 and he took an Xray and on the took a MRI of back and returned ot see Dr. Ching who told her if she didn't have the back surgery, she would be paralyzed. Pt had problems w/ feet where seh would have to stop walking d/t feet bothering her in Feb 2019 when went back to work. 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 Pt wears new balance shoes at work typically and track vehicle repairer checked feet after pain started in feet. Feet started feeling better w/orthotics from track vehicle repairer but back started to irritate. She has not been wearing shoes since surgery d/t it feels like she is wearing something so tight and cutting off circulation and her feet feel ice cold. She avoid BLT for month after surgery like the MD said and then started 1.5 months after d/t concern of loosing ROM. THe heaviest thing she has picked up was a sewing box so far. Pt has been walking w/FWW but is starting to occ use cane for small distances or nothing in the house. She uses a power cart in stores. THe past 2 weeks is when she started to dec cane & FWW use except when seh leaves the house. Pt had a twisted bowel October 26, 2018 and had surgery and was hospitalized. Pt has too much pain after getting out of bed but feels okay getting off couch so has been sleeping on couch. She has vertigo that when seh lays on L side, it affects her. Pt cannot tolerate cold. Dgt concerned that pt has not returned back to work at [employer] and told her she would feel like she was 40 after the surgery. Future Testing and Treatments Planned Dgt wants to take pt to DO Treatment Goals Patient/Caregiver Goals return to work, walk better PT-OP-C Subjective Start: 09/21/20 14:55 Freq: Status: Active Protocol: Document 12/20/20 10:12 [facility] (Rec: 12/20/20 11:05 [facility] [id number]) OP-PT Subjective Patient Comments Patient Comments Pt has been wearing pad at night because she can't always make it to the bathroom now that she is moving slower. She feels she is really stiff when she wakes up at night and in the morning. PT-OP-F Manual Assessment Start: 09/21/20 14:55 Freq: Status: Active Protocol: Document 09/23/20 08:19 [facility] (Rec: 09/23/20 09:10 [facility] [id number]) Manual Assessments Soft Tissue Assessment Soft Tissue Mobility Assessment significant scar immobility, pain w/QL & ES palpation Joint Mobility Assessment Joint Mobility Assessment slight inc iliac crest height on R in standing PT-OP-G Mobility & Gait Start: 09/21/20 14:55 Freq: Status: Active Protocol: Document 09/23/20 08:19 [facility] (Rec: 09/23/20 09:10 [facility] [id number]) OP Mobility Evaluation Bed Mobility Supine to and from Sit log roll technique used OP Gait Assessment Comments Gait Comments Fwd leaning onto FWW PT-OP-J Posture/Palpation/Skin Start: 09/21/20 14:55 Freq: Status: Active Protocol: Document 09/23/20 08:19 [facility] (Rec: 09/23/20 09:10 [facility] [id number]) Posture Evaluation Comments Posture Comments inc kyphosis, fwd lean w/ walker PT-OP-K Range of Motion Start: 09/21/20 14:55 Freq: Status: Active Protocol: Document 09/23/20 08:19 [facility] (Rec: 09/23/20 09:10 [facility] [id number]) Lumbar Spine Range of Motion Lumbar Spine Active Degrees Flexion 40 Rotation Left 49 Rotation Right 54 Lateral Flexion Left 4 Lateral Flexion Right 8 Comments unable to extend even to neutral PT-OP-L Special Tests Start: 09/21/20 14:55 Freq: Status: Active Protocol: Document 09/23/20 08:19 [facility] (Rec: 09/23/20 09:10 [facility] [id number]) Special Tests Lumbar Spine Special Tests Slump Test Results L positive PT-OP-M Strength Start: 09/21/20 14:55 Freq: Status: Active Protocol: Document 09/23/20 08:19 [facility] (Rec: 09/23/20 09:10 [facility] [id number]) Hip Strength Hip Manual Muscle Testing Right Flexion (L2) 4 Good External Rotation 3 Fair Internal Rotation 3 Fair Comments abd not tested d/t pt cannot lay on L side Left Flexion (L2) 4 Good Abduction 2+ Poor+ External Rotation 4- Good- Internal Rotation 3 Fair Knee Strength Knee Manual Muscle Testing Right Flexion (S2) 5 Normal Extension (L3) 5 Normal Left Flexion (S2) 5 Normal Extension (L3) 5 Normal Ankle/Foot Strength Ankle and Foot Manual Muscle Testing Right Dorsiflexion (L4) 5 Normal Plantarflexion (S1) 5 Normal Left Dorsiflexion (L4) 5 Normal Plantarflexion (S1) 5 Normal Comments PF tested seated PT-OP-Q Treatments Start: 09/21/20 14:55 Freq: Status: Active Protocol: Document 12/20/20 10:12 [facility] (Rec: 12/20/20 11:05 [facility] [id number]) Cardio Equipment Recumbent Elliptical (Biodex) Duration (Minutes) 8 Resistance 7 Seat Position 5 Gym Equipment Shuttle Recovery Bilateral Squats Details pt could not do 112 today Resistance 100# Shuttle Recovery Platform Stable Reps/Time 2x15 Therapeutic Exercises Standing Exercises step ups Standing Exercise Name 8 in w/alt march Side bilateral Equipment Used L HR for balance Reps/Minutes 2x6 Comments cued upright posture and glut fac COG over ELENA sidestep Standing Exercise Name cues to not drag second leg Side bilateral Equipment Used red tband Reps/Minutes 20ftx2 Comments cued PPT, core facilitation Gait Training Gait Activity Walking Comments walking with and without flip flops to demonstrate pt dragging feet and curling toes to keep shoes on causing her increased pain Manual Therapy Treatment Soft Tissue Mobilization Scar Body Location Posterior LB scar, paraspinals B, QL B Mobilization Type Rolling Intensity/Depth Moderate Body Position Prone Comments Pt tender R inferior scar Neuro Re-Education Treatment Balance Activities toe taps Details alt 12 in step Reps/Duration 20x Self-Care/Home Management Treatment Education Patient Education Safety Other Education Discussed looking into shoes that pt can slip on with good support vs her normal flip flops. Showed pt a shoe horn she can use as well since she is worried about being able to reach her R foot to pull shoes on PT-OP-R Modalities Start: 09/21/20 14:55 Freq: Status: Active Protocol: Document 12/20/20 10:12 [facility] (Rec: 12/20/20 11:05 [facility] [id number]) Hot Pack/Cold Pack Treatment Hot Pack Location lumbar Patient Position Hooklying Treatment Duration (minutes) 15 PT-OP-T Assessment and Plan Start: 09/21/20 14:55 Freq: Status: Active Protocol: Document 12/20/20 10:12 [facility] (Rec: 12/20/20 11:05 [facility] [id number]) Physical Therapy Assessment Goals lifting Short Term Goal (STG) Pt will be able to lift light weights with good mechanics. STG Duration 10/24/20 Test Tube Maker Goal (LTG) Pt will be able to lift 20 lbs safely and comfortably with good mechanics. 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 LTG Duration 11/23/20 strength Short Term Goal (STG) Pt will be indep with HEP STG Duration 10/24/20 [facility] Goal (LTG) Pt will score at least 4+/5 for all LE MMT and 3/5 w/LPM to show imrpoved stability and allow pt do typical functions and return to work. LTG Duration 11/23/20 gait Short Term Goal (STG) Pt will be able to walk with good gait mechanics w/o AD consistantly. STG Duration 10/24/20 Senior Care Goal (LTG) Pt will be able to walk stores and longer distances without need for AD or something to lean on d/t pain/back fatigue. LTG Duration 11/23/20 Assessment Summary Assessment José Miguel was unable to do 112# today on shuttle recovery leg press machine. She needed heavy cues during side stepping for not dragging foot and for core facilitation to avoid lateral lean. Walked around gym with and without shoes to have pt feel how she curls her toes to keep her flip flops on and doesn't flex knee and hip as high with flip flops. Discussed finding closed toed shoes pt can wear that are slip on and possibly using shoe horn to get shoes on which may help decrease some of her back pain. Pt is worried her feet will swell and she won't know due to her neuropathy. Talked with pt about trying new shoes at home and removing shoes to check for swelling every few hours before going back to a full day of work wearing new shoes. Pt will be attempting to return to work in January. Physical Therapy Plan Frequency and Duration Frequency of Treatment 2x/Week Duration of Treatment 3 months Plan of Care Start Date 09/23/20 Plan of Care End Date 12/24/20 Therapeutic Interventions Therapeutic Interventions Aquatic Therapy,Balance Training,Gait Training,Home Exercise Program,Joint Mobilizations,Manual Therapy, Neuromuscular Re-education, Patient/Caregiver Education, Self-Care/Home Management,Soft Tissue Mobilization,Taping, Therapeutic Activities, Therapeutic Exercises Modalities Cold Pack/Ice Massage,Electric Stimulation,Hot Packs, Ultrasound Next Visit Focus/Plan Next Note Type Progress Note Next Visit Plan Update POC cont to work on posture in standing and work on glute and core strength
--- NOTE | 2020-12-23 11:18 | PT.OTN ---
Current Diagnoses Spondylolisthesis, thoracic region (12/23/20) Other spondylosis with radiculopathy, lumbosacral region (12/23/20) Spinal stenosis, lumbar region without neurogenic claudication (12/23/20) Physical Therapy Treatment Note PT-OP-A Visit Information Start: 09/21/20 14:55 Freq: Status: Active Protocol: Document 12/23/20 10:34 [facility] (Rec: 12/23/20 11:18 [facility] [id number]) Out-Patient Physical Therapy Visit Information Visit Information Visit Type Progress Note Visit Start Time 10:35 Visit Stop Time 11:30 Total Visit Minutes 55 Visit Number 16 Number of RECORDS MANAGEMENT MANAGER Visits 0 PT-OP-B Current Condition Start: 09/21/20 14:55 Freq: Status: Active Protocol: Document 09/23/20 08:19 [facility] (Rec: 09/23/20 09:10 [facility] [id number]) Current Condition History of Current Condition Onset Date Jun 14 surgery, worsening back pain mar 18 Current Complaints L4-5, L5-S1 TLIF History of Current Condition 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 In Mar 2020 , she was squatted down and went to straighten a board under a euthenized horse as they were getting her onto the flat bed. Next day, was having excrutiating back pain into RLE to knee and topher tto the hospital on Mar 18. She went to see Dr. Ching Mar 25 and he took an Xray and on the took a MRI of back and returned ot see Dr. Ching who told her if she didn't have the back surgery, she would be paralyzed. Pt had problems w/ feet where seh would have to stop walking d/t feet bothering her in Feb 2019 when went back to work. 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 Pt wears new balance shoes at work typically and airline lounge receptionist checked feet after pain started in feet. Feet started feeling better w/orthotics from airline lounge receptionist but back started to irritate. She has not been wearing shoes since surgery d/t it feels like she is wearing something so tight and cutting off circulation and her feet feel ice cold. She avoid BLT for month after surgery like the MD said and then started 1.5 months after d/t concern of loosing ROM. THe heaviest thing she has picked up was a sewing box so far. Pt has been walking w/FWW but is starting to occ use cane for small distances or nothing in the house. She uses a power cart in stores. THe past 2 weeks is when she started to dec cane & FWW use except when seh leaves the house. Pt had a twisted bowel October 26, 2018 and had surgery and was hospitalized. Pt has too much pain after getting out of bed but feels okay getting off couch so has been sleeping on couch. She has vertigo that when seh lays on L side, it affects her. Pt cannot tolerate cold. Dgt concerned that pt has not returned back to work at [employer] and told her she would feel like she was 40 after the surgery. Future Testing and Treatments Planned Dgt wants to take pt to DO Treatment Goals Patient/Caregiver Goals return to work, walk better PT-OP-C Subjective Start: 09/21/20 14:55 Freq: Status: Active Protocol: Document 12/23/20 10:34 [facility] (Rec: 12/23/20 11:18 [facility] [id number]) OP-PT Subjective Patient Comments Patient Comments Pt did walk from the front door to pharmacy w/cane but typically will use a grocery cart in a store. Has been going for walks at home about 1-1.5 blocks PT-OP-F Manual Assessment Start: 09/21/20 14:55 Freq: Status: Active Protocol: Document 09/23/20 08:19 [facility] (Rec: 09/23/20 09:10 [facility] [id number]) Manual Assessments Soft Tissue Assessment Soft Tissue Mobility Assessment significant scar immobility, pain w/QL & ES palpation Joint Mobility Assessment Joint Mobility Assessment slight inc iliac crest height on R in standing PT-OP-G Mobility & Gait Start: 09/21/20 14:55 Freq: Status: Active Protocol: Document 09/23/20 08:19 [facility] (Rec: 09/23/20 09:10 [facility] [id number]) OP Mobility Evaluation Bed Mobility Supine to and from Sit log roll technique used OP Gait Assessment Comments Gait Comments Fwd leaning onto FWW PT-OP-J Posture/Palpation/Skin Start: 09/21/20 14:55 Freq: Status: Active Protocol: Document 12/23/20 10:34 [facility] (Rec: 12/23/20 11:18 [facility] [id number]) Posture Evaluation [facility] Postural Classification System Lumbar Protective Mechanism Left AP 0 Lumbar Protective Mechanism Right AP 1 Lumbar Protective Mechanism Left PA 0 Lumbar Protective Mechanism Right PA 1 PT-OP-K Range of Motion Start: 09/21/20 14:55 Freq: Status: Active Protocol: Document 09/23/20 08:19 [facility] (Rec: 09/23/20 09:10 [facility] [id number]) Lumbar Spine Range of Motion Lumbar Spine Active Degrees Flexion 40 Rotation Left 49 Rotation Right 54 Lateral Flexion Left 4 Lateral Flexion Right 8 Comments unable to extend even to neutral PT-OP-L Special Tests Start: 09/21/20 14:55 Freq: Status: Active Protocol: Document 09/23/20 08:19 [facility] (Rec: 09/23/20 09:10 [facility] [id number]) Special Tests Lumbar Spine Special Tests Slump Test Results L positive PT-OP-M Strength Start: 09/21/20 14:55 Freq: Status: Active Protocol: Document 12/23/20 10:34 [facility] (Rec: 12/23/20 11:18 [facility] [id number]) Hip Strength Hip Manual Muscle Testing Right Flexion (L2) 4 Good External Rotation 4- Good- Internal Rotation 4- Good- Comments abd not tested d/t pt cannot lay on L side Left Flexion (L2) 4+ Good+ Abduction 3+ Fair+ External Rotation 4- Good- Internal Rotation 4- Good- Knee Strength Knee Manual Muscle Testing Right Flexion (S2) 5 Normal Extension (L3) 5 Normal Left Flexion (S2) 5 Normal Extension (L3) 5 Normal Ankle/Foot Strength Ankle and Foot Manual Muscle Testing Right Dorsiflexion (L4) 5 Normal Plantarflexion (S1) 5 Normal Left Dorsiflexion (L4) 5 Normal Plantarflexion (S1) 5 Normal Comments PF tested seated PT-OP-Q Treatments Start: 09/21/20 14:55 Freq: Status: Active Protocol: Document 12/23/20 10:34 [facility] (Rec: 12/23/20 11:18 [facility] [id number]) Cardio Equipment Recumbent Elliptical ([employer]) Duration (Minutes) 8 Resistance 7 Seat Position 5 Therapeutic Exercises Standing Exercises squat Standing Exercise Name by rail as needed Side bilateral Reps/Minutes 15 step ups Standing Exercise Name 8 in w/alt march Side bilateral Equipment Used L HR for balance Reps/Minutes 12 Comments cued upright posture and glut fac COG over ELENA sidestep Standing Exercise Name cues to not drag second leg Side bilateral Equipment Used red tband Reps/Minutes 20ftx2 Comments cued PPT, core facilitation Manual Therapy Treatment Soft Tissue Mobilization Scar Body Location Posterior LB scar, paraspinals B, QL B Mobilization Type Rolling Intensity/Depth Moderate Body Position Sidelying PT-OP-R Modalities Start: 09/21/20 14:55 Freq: Status: Active Protocol: Document 12/23/20 10:34 [facility] (Rec: 12/23/20 11:18 [facility] [id number]) Hot Pack/Cold Pack Treatment Hot Pack Location lumbar Patient Position Hooklying Treatment Duration (minutes) 15 PT-OP-T Assessment and Plan Start: 09/21/20 14:55 Freq: Status: Active Protocol: Document 12/23/20 10:34 [facility] (Rec: 12/23/20 11:18 [facility] [id number]) Physical Therapy Assessment Goals lifting Short Term Goal (STG) Pt will be able to lift light weights with good mechanics. STG Duration achieved Residential Goal (LTG) Pt will be able to lift 20 lbs safely and comfortably with good mechanics. 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 12/23-has not been cleared to return yet LTG Duration 02/22/21 strength Short Term Goal (STG) Pt will be indep with HEP STG Duration achieved Tile And Marble Installer Goal (LTG) Pt will score at least 4+/5 for all LE MMT and 3/5 w/LPM to show imrpoved stability and allow pt do typical functions and return to work. 12/23-improving LTG Duration 02/22/21 gait Short Term Goal (STG) Pt will be able to walk with good gait mechanics w/o AD consistantly. 12/23-still amb w/cane outside of home and does limp STG Duration 01/22/21 Tile And Marble Installer Goal (LTG) Pt will be able to walk stores and longer distances without need for AD or something to lean on d/t pain/back fatigue. 12/23-still uses cart or cane LTG Duration 02/22/21 Assessment Summary Assessment Pt is making good strength and funcitonal improvement w/ therapy but still has difficulty with gait d/t weakness in RLE and B hip abd functionally. She would beneift from cont PT to cont to wokr on gait, strength, flexibility and mobility. Physical Therapy Plan Frequency and Duration Frequency of Treatment 1-2x/Week Duration of Treatment 2 months Plan of Care Start Date 12/23/20 Plan of Care End Date 02/22/21 Therapeutic Interventions Therapeutic Interventions Aquatic Therapy,Balance Training,Gait Training,Home Exercise Program,Joint Mobilizations,Manual Therapy, Neuromuscular Re-education, Patient/Caregiver Education, Self-Care/Home Management,Soft Tissue Mobilization,Taping, Therapeutic Activities, Therapeutic Exercises Modalities Cold Pack/Ice Massage,Electric Stimulation,Hot Packs, Ultrasound Next Visit Focus/Plan Next Note Type Treatment Note Next Visit Plan cont to work on posture in standing and work on glute and core strength
--- NOTE | 2020-12-29 11:01 | PT.OTN ---
Current Diagnoses Spondylolisthesis, thoracic region (12/29/20) Other spondylosis with radiculopathy, lumbosacral region (12/29/20) Spinal stenosis, lumbar region without neurogenic claudication (12/29/20) Physical Therapy Treatment Note PT-OP-A Visit Information Start: 09/21/20 14:55 Freq: Status: Active Protocol: Document 12/29/20 10:13 [facility] (Rec: 12/29/20 11:01 [facility] [id number]) Out-Patient Physical Therapy Visit Information Visit Information Visit Type Treatment Note Visit Start Time 10:15 Visit Stop Time 11:15 Total Visit Minutes 60 Visit Number 17 Number of SHOE FOLDER Visits 1 PT-OP-B Current Condition Start: 09/21/20 14:55 Freq: Status: Active Protocol: Document 09/23/20 08:19 [facility] (Rec: 09/23/20 09:10 [facility] [id number]) Current Condition History of Current Condition Onset Date Jun 14 surgery, worsening back pain mar 18 Current Complaints L4-5, L5-S1 TLIF History of Current Condition 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 In Mar 2020 , she was squatted down and went to straighten a board under a euthenized horse as they were getting her onto the flat bed. Next day, was having excrutiating back pain into RLE to knee and topher tto the hospital on Mar 18. She went to see Dr. Ching Mar 25 and he took an Xray and on the took a MRI of back and returned ot see Dr. Ching who told her if she didn't have the back surgery, she would be paralyzed. Pt had problems w/ feet where seh would have to stop walking d/t feet bothering her in Feb 2019 when went back to work. 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 Feet started feeling better w/orthotics from blower and compressor assembler but back started to irritate. She has not been wearing shoes since surgery d/t it feels like she is wearing something so tight and cutting off circulation and her feet feel ice cold. She avoid BLT for month after surgery like the MD said and then started 1.5 months after d/t concern of loosing ROM. THe heaviest thing she has picked up was a sewing box so far. Pt has been walking w/FWW but is starting to occ use cane for small distances or nothing in the house. She uses a power cart in stores. THe past 2 weeks is when she started to dec cane & FWW use except when seh leaves the house. Pt had a twisted bowel October 26, 2018 and had surgery and was hospitalized. Pt has too much pain after getting out of bed but feels okay getting off couch so has been sleeping on couch. She has vertigo that when seh lays on L side, it affects her. Pt cannot tolerate cold. Dgt concerned that pt has not returned back to work at [employer] and told her she would feel like she was 40 after the surgery. Future Testing and Treatments Planned Dgt wants to take pt to DO Treatment Goals Patient/Caregiver Goals return to work, walk better PT-OP-C Subjective Start: 09/21/20 14:55 Freq: Status: Active Protocol: Document 12/29/20 10:13 [facility] (Rec: 12/29/20 11:01 [facility] [id number]) OP-PT Subjective Patient Comments Patient Comments Pt states the weather changes have really been causing her pain. It's been too hot and then today it's so cold she is achy. Saw ortho yesterday who said the xrays look good and he will see her again in 3 months. She is going to continue waiting to go back to work until end of February. PT-OP-F Manual Assessment Start: 09/21/20 14:55 Freq: Status: Active Protocol: Document 09/23/20 08:19 [facility] (Rec: 09/23/20 09:10 [facility] [id number]) Manual Assessments Soft Tissue Assessment Soft Tissue Mobility Assessment significant scar immobility, pain w/QL & ES palpation Joint Mobility Assessment Joint Mobility Assessment slight inc iliac crest height on R in standing PT-OP-G Mobility & Gait Start: 09/21/20 14:55 Freq: Status: Active Protocol: Document 09/23/20 08:19 [facility] (Rec: 09/23/20 09:10 [facility] [id number]) OP Mobility Evaluation Bed Mobility Supine to and from Sit log roll technique used OP Gait Assessment Comments Gait Comments Fwd leaning onto FWW PT-OP-J Posture/Palpation/Skin Start: 09/21/20 14:55 Freq: Status: Active Protocol: Document 12/23/20 10:34 [facility] (Rec: 12/23/20 11:18 [facility] [id number]) Posture Evaluation [facility] Postural Classification System Lumbar Protective Mechanism Left AP 0 Lumbar Protective Mechanism Right AP 1 Lumbar Protective Mechanism Left PA 0 Lumbar Protective Mechanism Right PA 1 PT-OP-K Range of Motion Start: 09/21/20 14:55 Freq: Status: Active Protocol: Document 09/23/20 08:19 [facility] (Rec: 09/23/20 09:10 [facility] [id number]) Lumbar Spine Range of Motion Lumbar Spine Active Degrees Flexion 40 Rotation Left 49 Rotation Right 54 Lateral Flexion Left 4 Lateral Flexion Right 8 Comments unable to extend even to neutral PT-OP-L Special Tests Start: 09/21/20 14:55 Freq: Status: Active Protocol: Document 09/23/20 08:19 [facility] (Rec: 09/23/20 09:10 [facility] [id number]) Special Tests Lumbar Spine Special Tests Slump Test Results L positive PT-OP-M Strength Start: 09/21/20 14:55 Freq: Status: Active Protocol: Document 12/23/20 10:34 [facility] (Rec: 12/23/20 11:18 [facility] [id number]) Hip Strength Hip Manual Muscle Testing Right Flexion (L2) 4 Good External Rotation 4- Good- Internal Rotation 4- Good- Comments abd not tested d/t pt cannot lay on L side Left Flexion (L2) 4+ Good+ Abduction 3+ Fair+ External Rotation 4- Good- Internal Rotation 4- Good- Knee Strength Knee Manual Muscle Testing Right Flexion (S2) 5 Normal Extension (L3) 5 Normal Left Flexion (S2) 5 Normal Extension (L3) 5 Normal Ankle/Foot Strength Ankle and Foot Manual Muscle Testing Right Dorsiflexion (L4) 5 Normal Plantarflexion (S1) 5 Normal Left Dorsiflexion (L4) 5 Normal Plantarflexion (S1) 5 Normal Comments PF tested seated PT-OP-Q Treatments Start: 09/21/20 14:55 Freq: Status: Active Protocol: Document 12/29/20 10:13 [facility] (Rec: 12/29/20 11:01 [facility] [id number]) Cardio Equipment Recumbent Elliptical ([employer]) Duration (Minutes) 8 Resistance 7 Seat Position 5 Therapeutic Exercises Standing Exercises squat Standing Exercise Name by rail as needed Side bilateral Reps/Minutes 2x10 step ups Standing Exercise Name 8 in w/alt september Side bilateral Equipment Used L HR for balance Reps/Minutes 2x8 Comments cued upright posture and glut fac COG over ELENA sidestep Standing Exercise Name cues to not drag second leg Side bilateral Equipment Used red tband Reps/Minutes 20ftx2 Comments cued PPT, core facilitation Manual Therapy Treatment Soft Tissue Mobilization Scar Body Location Posterior LB scar, paraspinals B, QL B Mobilization Type Rolling Intensity/Depth Moderate Body Position Sidelying Self-Care/Home Management Treatment Education Other Education Continued to discuss importance of finding closed toed shoes to work with before pt returns to work. She is worried about swelling. Encouraged pt to buy shoes that come in wide sizes. PT-OP-R Modalities Start: 09/21/20 14:55 Freq: Status: Active Protocol: Document 12/29/20 10:13 [facility] (Rec: 12/29/20 11:01 [facility] [id number]) Hot Pack/Cold Pack Treatment Hot Pack Location lumbar Patient Position Hooklying Treatment Duration (minutes) 15 PT-OP-T Assessment and Plan Start: 09/21/20 14:55 Freq: Status: Active Protocol: Document 12/29/20 10:13 [facility] (Rec: 12/29/20 11:01 [facility] [id number]) Physical Therapy Assessment Goals lifting Short Term Goal (STG) Pt will be able to lift light weights with good mechanics. STG Duration achieved Plasterer Rough Goal (LTG) Pt will be able to lift 20 lbs safely and comfortably with good mechanics. 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 12/23-has not been cleared to return yet LTG Duration 02/22/21 strength Short Term Goal (STG) Pt will be indep with HEP STG Duration achieved Mcfp Goal (LTG) Pt will score at least 4+/5 for all LE MMT and 3/5 w/LPM to show imrpoved stability and allow pt do typical functions and return to work. 12/23-improving LTG Duration 02/22/21 gait Short Term Goal (STG) Pt will be able to walk with good gait mechanics w/o AD consistantly. 12/23-still amb w/cane outside of home and does limp STG Duration 01/22/21 Plasterer Rough Goal (LTG) Pt will be able to walk stores and longer distances without need for AD or something to lean on d/t pain/back fatigue. 12/23-still uses cart or cane LTG Duration 02/22/21 Assessment Summary Assessment José Miguel was able to complete all exercises without any breaks. She continues to drag her R foot when sidestepping L. She takes increased time to complete steps ups and has difficulty clearing 8 step today with RLE. Pt states she has some dull aching with step ups, but no pain. Discussed getting new shoes for therapy and for returning to work, making sure to buy wide fit shoes to avoid causing swelling. Physical Therapy Plan Frequency and Duration Frequency of Treatment 1-2x/Week Duration of Treatment 2 months Plan of Care Start Date 12/23/20 Plan of Care End Date 02/22/21 Therapeutic Interventions Therapeutic Interventions Aquatic Therapy,Balance Training,Gait Training,Home Exercise Program,Joint Mobilizations,Manual Therapy, Neuromuscular Re-education, Patient/Caregiver Education, Self-Care/Home Management,Soft Tissue Mobilization,Taping, Therapeutic Activities, Therapeutic Exercises Modalities Cold Pack/Ice Massage,Electric Stimulation,Hot Packs, Ultrasound Next Visit Focus/Plan Next Note Type Treatment Note Next Visit Plan cont to work on posture in standing and work on glute and core strength
--- NOTE | 2021-01-07 11:30 | PT.OTN ---
Current Diagnoses Spondylolisthesis, thoracic region (01/07/21) Other spondylosis with radiculopathy, lumbosacral region (01/07/21) Spinal stenosis, lumbar region without neurogenic claudication (01/07/21) Physical Therapy Treatment Note PT-OP-A Visit Information Start: 09/21/20 14:55 Freq: Status: Active Protocol: Document 01/07/21 10:36 MA (Rec: 01/07/21 11:28 MA [id number]) Out-Patient Physical Therapy Visit Information Visit Information Visit Type Treatment Note Visit Start Time 10:30 Visit Stop Time 11:29 Total Visit Minutes 59 Visit Number 18 Number of WINDSMITH Visits 2 PT-OP-B Current Condition Start: 09/21/20 14:55 Freq: Status: Active Protocol: Document 09/23/20 08:19 [facility] (Rec: 09/23/20 09:10 [facility] [id number]) Current Condition History of Current Condition Onset Date Jun 14 surgery, worsening back pain mar 18 Current Complaints L4-5, L5-S1 TLIF History of Current Condition 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 In Mar 2020 , she was squatted down and went to straighten a board under a euthenized horse as they were getting her onto the flat bed. Next day, was having excrutiating back pain into RLE to knee and topher tto the hospital on Mar 18. She went to see Dr. Ching Mar 25 and he took an Xray and on the took a MRI of back and returned ot see Dr. Ching who told her if she didn't have the back surgery, she would be paralyzed. Pt had problems w/ feet where seh would have to stop walking d/t feet bothering her in Feb 2019 when went back to work. 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 Pt wears new balance shoes at work typically and machine heel seat fitter checked feet after pain started in feet. Feet started feeling better w/orthotics from machine heel seat fitter but back started to irritate. She has not been wearing shoes since surgery d/t it feels like she is wearing something so tight and cutting off circulation and her feet feel ice cold. She avoid BLT for month after surgery like the MD said and then started 1.5 months after d/t concern of loosing ROM. THe heaviest thing she has picked up was a sewing box so far. Pt has been walking w/FWW but is starting to occ use cane for small distances or nothing in the house. She uses a power cart in stores. THe past 2 weeks is when she started to dec cane & FWW use except when seh leaves the house. Pt had a twisted bowel October 26, 2018 and had surgery and was hospitalized. Pt has too much pain after getting out of bed but feels okay getting off couch so has been sleeping on couch. She has vertigo that when semarina lays on L side, it affects her. Pt cannot tolerate cold. Dgt concerned that pt has not returned back to work at [employer] and told her she would feel like she was 40 after the surgery. Future Testing and Treatments Planned Dgt wants to take pt to DO Treatment Goals Patient/Caregiver Goals return to work, walk better PT-OP-C Subjective Start: 09/21/20 14:55 Freq: Status: Active Protocol: Document 01/07/21 10:36 MA (Rec: 01/07/21 11:28 MA [id number]) OP-PT Subjective Patient Comments Patient Comments Pt states she has been achy if she stands and walks around a lot. She went to [employer] [facility] [employer] and purchased new slide-on shoes which she is wearing today. She saw primary care dr who is still concerned with the loss os sensation in her feet. She will not be returning to work until March now. PT-OP-F Manual Assessment Start: 09/21/20 14:55 Freq: Status: Active Protocol: Document 09/23/20 08:19 [facility] (Rec: 09/23/20 09:10 [facility] [id number]) Manual Assessments Soft Tissue Assessment Soft Tissue Mobility Assessment significant scar immobility, pain w/QL & ES palpation Joint Mobility Assessment Joint Mobility Assessment slight inc iliac crest height on R in standing PT-OP-G Mobility & Gait Start: 09/21/20 14:55 Freq: Status: Active Protocol: Document 09/23/20 08:19 [facility] (Rec: 09/23/20 09:10 [facility] [id number]) OP Mobility Evaluation Bed Mobility Supine to and from Sit log roll technique used OP Gait Assessment Comments Gait Comments Fwd leaning onto FWW PT-OP-J Posture/Palpation/Skin Start: 09/21/20 14:55 Freq: Status: Active Protocol: Document 12/23/20 10:34 [facility] (Rec: 12/23/20 11:18 [facility] [id number]) Posture Evaluation [facility] Postural Classification System Lumbar Protective Mechanism Left AP 0 Lumbar Protective Mechanism Right AP 1 Lumbar Protective Mechanism Left PA 0 Lumbar Protective Mechanism Right PA 1 PT-OP-K Range of Motion Start: 09/21/20 14:55 Freq: Status: Active Protocol: Document 09/23/20 08:19 [facility] (Rec: 09/23/20 09:10 [facility] [id number]) Lumbar Spine Range of Motion Lumbar Spine Active Degrees Flexion 40 Rotation Left 49 Rotation Right 54 Lateral Flexion Left 4 Lateral Flexion Right 8 Comments unable to extend even to neutral PT-OP-L Special Tests Start: 09/21/20 14:55 Freq: Status: Active Protocol: Document 09/23/20 08:19 [facility] (Rec: 09/23/20 09:10 [facility] [id number]) Special Tests Lumbar Spine Special Tests Slump Test Results L positive PT-OP-M Strength Start: 09/21/20 14:55 Freq: Status: Active Protocol: Document 12/23/20 10:34 [facility] (Rec: 12/23/20 11:18 [facility] [id number]) Hip Strength Hip Manual Muscle Testing Right Flexion (L2) 4 Good External Rotation 4- Good- Internal Rotation 4- Good- Comments abd not tested d/t pt cannot lay on L side Left Flexion (L2) 4+ Good+ Abduction 3+ Fair+ External Rotation 4- Good- Internal Rotation 4- Good- Knee Strength Knee Manual Muscle Testing Right Flexion (S2) 5 Normal Extension (L3) 5 Normal Left Flexion (S2) 5 Normal Extension (L3) 5 Normal Ankle/Foot Strength Ankle and Foot Manual Muscle Testing Right Dorsiflexion (L4) 5 Normal Plantarflexion (S1) 5 Normal Left Dorsiflexion (L4) 5 Normal Plantarflexion (S1) 5 Normal Comments PF tested seated PT-OP-Q Treatments Start: 09/21/20 14:55 Freq: Status: Active Protocol: Document 01/07/21 10:36 MA (Rec: 01/07/21 11:28 MA [id number]) Cardio Equipment Recumbent Elliptical (Biodex) Duration (Minutes) 8 Resistance 7 Seat Position 5 Therapeutic Exercises Sitting Exercises piriformis stretch Sitting Exercise Name figure 4 Side bilateral Reps/Minutes 30 sec Comments needs assistance lifting RLE Standing Exercises squat Standing Exercise Name by rail as needed Side bilateral Reps/Minutes 2x10 step ups Standing Exercise Name 8 in w/alt march Side bilateral Equipment Used single HR for balance Reps/Minutes 2x8 Comments cued upright posture and glut fac COG over ELENA sidestep Standing Exercise Name cues to not drag second leg Side bilateral Equipment Used red tband Reps/Minutes 20ftx2 Comments cued PPT, core facilitation Therapeutic Activity Therapeutic Activity Lifting Reps/Minutes 5x Comments 8# box, squatting to lift, cue sto bring box close to body before standing PT-OP-R Modalities Start: 09/21/20 14:55 Freq: Status: Active Protocol: Document 01/07/21 10:36 MA (Rec: 01/07/21 11:30 MA [id number]) Hot Pack/Cold Pack Treatment Hot Pack Location lumbar Patient Position Hooklying Treatment Duration (minutes) 15 PT-OP-T Assessment and Plan Start: 09/21/20 14:55 Freq: Status: Active Protocol: Document 01/07/21 10:36 MA (Rec: 01/07/21 11:28 MA [id number]) Physical Therapy Assessment Goals lifting Short Term Goal (STG) Pt will be able to lift light weights with good mechanics. STG Duration achieved Assisted Goal (LTG) Pt will be able to lift 20 lbs safely and comfortably with good mechanics. 12/23-still limited w/ lifting LTG Duration 02/22/21 activities Short Term Goal (STG) Pt will be able to partiicpate in manager php without inc pain greater than 3/10 or requiring seated rest breaks. 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 12/23-has not been cleared to return yet LTG Duration 02/22/21 strength Short Term Goal (STG) Pt will be indep with HEP STG Duration achieved Assisted Goal (LTG) Pt will score at least 4+/5 for all LE MMT and 3/5 w/LPM to show imrpoved stability and allow pt do typical functions and return to work. 12/23-improving LTG Duration 02/22/21 gait Short Term Goal (STG) Pt will be able to walk with good gait mechanics w/o AD consistantly. 12/23-still amb w/cane outside of home and does limp STG Duration 01/22/21 Composite Assembler Goal (LTG) Pt will be able to walk stores and longer distances without need for AD or something to lean on d/t pain/back fatigue. 12/23-still uses cart or cane LTG Duration 02/22/21 Assessment Summary Assessment José Miguel arrives with new, closed -toed shoes and shows much better balance in these shoes than normal flip-flops. She doesn't drag her feet during side steps today with new shoes on. Pt was able to practice lifting with an 8# box showing good form after practicing squats to lift. She has no pain during lifting and only requires minor cues to pull box close to body when lifting. During step ups on 8 box, she fatigues on second side and is unable to complete full march on last three step ups. Physical Therapy Plan Frequency and Duration Frequency of Treatment 1-2x/Week Duration of Treatment 2 months Plan of Care Start Date 12/23/20 Plan of Care End Date 02/22/21 Therapeutic Interventions Therapeutic Interventions Aquatic Therapy,Balance Training,Gait Training,Home Exercise Program,Joint Mobilizations,Manual Therapy, Neuromuscular Re-education, Patient/Caregiver Education, Self-Care/Home Management,Soft Tissue Mobilization,Taping, Therapeutic Activities, Therapeutic Exercises Modalities Cold Pack/Ice Massage,Electric Stimulation,Hot Packs, Ultrasound Next Visit Focus/Plan Next Note Type Treatment Note Next Visit Plan cont to work on posture in standing and work on glute and core strength
--- NOTE | 2021-01-12 12:03 | PT.OTN ---
Current Diagnoses Spondylolisthesis, thoracic region (01/12/21) Other spondylosis with radiculopathy, lumbosacral region (01/12/21) Spinal stenosis, lumbar region without neurogenic claudication (01/12/21) Physical Therapy Treatment Note PT-OP-A Visit Information Start: 09/21/20 14:55 Freq: Status: Active Protocol: Document 01/12/21 11:25 [facility] (Rec: 01/12/21 12:01 [facility] [id number]) Out-Patient Physical Therapy Visit Information Visit Information Visit Type Treatment Note Visit Start Time 11:20 Visit Stop Time 12:15 Total Visit Minutes 55 Visit Number 19 Number of FAST FOOD CASHIER Visits 0 PT-OP-B Current Condition Start: 09/21/20 14:55 Freq: Status: Active Protocol: Document 09/23/20 08:19 [facility] (Rec: 09/23/20 09:10 [facility] [id number]) Current Condition History of Current Condition Onset Date Jun 14 surgery, worsening back pain mar 18 Current Complaints L4-5, L5-S1 TLIF History of Current Condition 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 In Mar 2020 , she was squatted down and went to straighten a board under a euthenized horse as they were getting her onto the flat bed. Next day, was having excrutiating back pain into RLE to knee and topher tto the hospital on Mar 18. She went to see Dr. Ching Mar 25 and he took an Xray and on the took a MRI of back and returned ot see Dr. Ching who told her if she didn't have the back surgery, she would be paralyzed. Pt had problems w/ feet where seh would have to stop walking d/t feet bothering her in Feb 2019 when went back to work. 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 Pt wears new balance shoes at work typically and nursing program manager checked feet after pain started in feet. Feet started feeling better w/orthotics from nursing program manager but back started to irritate. She has not been wearing shoes since surgery d/t it feels like she is wearing something so tight and cutting off circulation and her feet feel ice cold. She avoid BLT for month after surgery like the MD said and then started 1.5 months after d/t concern of loosing ROM. THe heaviest thing she has picked up was a sewing box so far. Pt has been walking w/FWW but is starting to occ use cane for small distances or nothing in the house. She uses a power cart in stores. THe past 2 weeks is when she started to dec cane & FWW use except when seh leaves the house. Pt had a twisted bowel October 26, 2018 and had surgery and was hospitalized. Pt has too much pain after getting out of bed but feels okay getting off couch so has been sleeping on couch. She has vertigo that when seh lays on L side, it affects her. Pt cannot tolerate cold. Dgt concerned that pt has not returned back to work at [employer] and told her she would feel like she was 40 after the surgery. Future Testing and Treatments Planned Dgt wants to take pt to DO Treatment Goals Patient/Caregiver Goals return to work, walk better PT-OP-C Subjective Start: 09/21/20 14:55 Freq: Status: Active Protocol: Document 01/12/21 11:25 [facility] (Rec: 01/12/21 12:01 [facility] [id number]) OP-PT Subjective Patient Comments Patient Comments Pt reprots walking at [facility] w/a chart and walked around [place] to stores w/cane another day. Reports hills are tough still as back strats to ache and knees get shakey . She does sit to stands at home and sidesteps w/o resistance and occ little bit of stretches. Notes she is tired today d/t not sleeping well. PT-OP-F Manual Assessment Start: 09/21/20 14:55 Freq: Status: Active Protocol: Document 09/23/20 08:19 [facility] (Rec: 09/23/20 09:10 [facility] [id number]) Manual Assessments Soft Tissue Assessment Soft Tissue Mobility Assessment significant scar immobility, pain w/QL & ES palpation Joint Mobility Assessment Joint Mobility Assessment slight inc iliac crest height on R in standing PT-OP-G Mobility & Gait Start: 09/21/20 14:55 Freq: Status: Active Protocol: Document 09/23/20 08:19 [facility] (Rec: 09/23/20 09:10 [facility] [id number]) OP Mobility Evaluation Bed Mobility Supine to and from Sit log roll technique used OP Gait Assessment Comments Gait Comments Fwd leaning onto FWW PT-OP-J Posture/Palpation/Skin Start: 09/21/20 14:55 Freq: Status: Active Protocol: Document 12/23/20 10:34 [facility] (Rec: 12/23/20 11:18 [facility] [id number]) Posture Evaluation [facility] Postural Classification System Lumbar Protective Mechanism Left AP 0 Lumbar Protective Mechanism Right AP 1 Lumbar Protective Mechanism Left PA 0 Lumbar Protective Mechanism Right PA 1 PT-OP-K Range of Motion Start: 09/21/20 14:55 Freq: Status: Active Protocol: Document 09/23/20 08:19 [facility] (Rec: 09/23/20 09:10 [facility] [id number]) Lumbar Spine Range of Motion Lumbar Spine Active Degrees Flexion 40 Rotation Left 49 Rotation Right 54 Lateral Flexion Left 4 Lateral Flexion Right 8 Comments unable to extend even to neutral PT-OP-L Special Tests Start: 09/21/20 14:55 Freq: Status: Active Protocol: Document 09/23/20 08:19 [facility] (Rec: 09/23/20 09:10 [facility] [id number]) Special Tests Lumbar Spine Special Tests Slump Test Results L positive PT-OP-M Strength Start: 09/21/20 14:55 Freq: Status: Active Protocol: Document 12/23/20 10:34 [facility] (Rec: 12/23/20 11:18 [facility] [id number]) Hip Strength Hip Manual Muscle Testing Right Flexion (L2) 4 Good External Rotation 4- Good- Internal Rotation 4- Good- Comments abd not tested d/t pt cannot lay on L side Left Flexion (L2) 4+ Good+ Abduction 3+ Fair+ External Rotation 4- Good- Internal Rotation 4- Good- Knee Strength Knee Manual Muscle Testing Right Flexion (S2) 5 Normal Extension (L3) 5 Normal Left Flexion (S2) 5 Normal Extension (L3) 5 Normal Ankle/Foot Strength Ankle and Foot Manual Muscle Testing Right Dorsiflexion (L4) 5 Normal Plantarflexion (S1) 5 Normal Left Dorsiflexion (L4) 5 Normal Plantarflexion (S1) 5 Normal Comments PF tested seated PT-OP-Q Treatments Start: 09/21/20 14:55 Freq: Status: Active Protocol: Document 01/12/21 11:25 [facility] (Rec: 01/12/21 12:01 [facility] [id number]) Cardio Equipment Recumbent Stepper (Sci-Fit) Duration (Minutes) 6 Resistance 6 Seat Position 8 Gym Equipment Shuttle Recovery Bilateral Squats Details pt could not do 112 today Resistance 100# Shuttle Recovery Platform Stable Reps/Time 15x2 Shuttle Balance red clips Comments fwd & side : WBOS & NBOS Therapeutic Exercises Supine Exercises LTR Side bilateral Reps/Minutes 6 B Comments good slow pacing and response bridge Supine Exercise Name cues for glutes Side bilateral Reps/Minutes 10 Comments traction facilition to start Standing Exercises step ups Standing Exercise Name 8 in w/alt march Side bilateral Equipment Used single HR for balance Reps/Minutes 10 Comments cued upright posture and glut fac COG over ELENA hip abd Side bilateral Equipment Used L1 Reps/Minutes 15 Comments focus on core and posture hip ext Side bilateral Equipment Used L1 Reps/Minutes 15 Comments focus on core and posture Manual Therapy Treatment Soft Tissue Mobilization Scar Body Location Posterior LB scar, paraspinals B, QL B Mobilization Type Rolling Intensity/Depth Moderate Body Position Sidelying Neuro Re-Education Treatment Balance Activities SLS Details trials B PT-OP-R Modalities Start: 09/21/20 14:55 Freq: Status: Active Protocol: Document 01/12/21 11:25 [facility] (Rec: 01/12/21 12:01 [facility] [id number]) Hot Pack/Cold Pack Treatment Hot Pack Location lumbar Patient Position Hooklying Treatment Duration (minutes) 15 PT-OP-T Assessment and Plan Start: 09/21/20 14:55 Freq: Status: Active Protocol: Document 01/12/21 11:25 [facility] (Rec: 01/12/21 12:01 [facility] [id number]) Physical Therapy Assessment Goals lifting Short Term Goal (STG) Pt will be able to lift light weights with good mechanics. STG Duration achieved Echo Technician Goal (LTG) Pt will be able to lift 20 lbs safely and comfortably with good mechanics. 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 12/23-has not been cleared to return yet LTG Duration 02/22/21 strength Short Term Goal (STG) Pt will be indep with HEP STG Duration achieved Residential Goal (LTG) Pt will score at least 4+/5 for all LE MMT and 3/5 w/LPM to show imrpoved stability and allow pt do typical functions and return to work. 12/23-improving LTG Duration 02/22/21 gait Short Term Goal (STG) Pt will be able to walk with good gait mechanics w/o AD consistantly. 12/23-still amb w/cane outside of home and does limp STG Duration 01/22/21 Echo Technician Goal (LTG) Pt will be able to walk stores and longer distances without need for AD or something to lean on d/t pain/back fatigue. 12/23-still uses cart or cane LTG Duration 02/22/21 Assessment Summary Assessment Pt did well with balance today but did have more difficulty w/SLS on L than R w/SLS. Printed HEP handout to encourage her to do HEP more frequently w/more strengthening and encouraged to keep walking daily. Physical Therapy Plan Frequency and Duration Frequency of Treatment 1-2x/Week Duration of Treatment 2 months Plan of Care Start Date 12/23/20 Plan of Care End Date 02/22/21 Next Visit Focus/Plan Next Note Type Discharge Summary Next Visit Plan insurance limiations so will need to DC
--- NOTE | 2021-01-20 10:37 | PT.OTN ---
Current Diagnoses Spondylolisthesis, thoracic region (01/20/21) Other spondylosis with radiculopathy, lumbosacral region (01/20/21) Spinal stenosis, lumbar region without neurogenic claudication (01/20/21) Physical Therapy Treatment Note PT-OP-A Visit Information Start: 09/21/20 14:55 Freq: Status: Active Protocol: Document 01/20/21 09:56 [facility] (Rec: 01/20/21 10:37 [facility] [id number]) Out-Patient Physical Therapy Visit Information Visit Information Visit Type Discharge Summary Visit Start Time 09:49 Visit Stop Time 10:43 Total Visit Minutes 54 Visit Number 20 Number of WIRE INSPECTOR Visits 0 PT-OP-B Current Condition Start: 09/21/20 14:55 Freq: Status: Active Protocol: Document 09/23/20 08:19 [facility] (Rec: 09/23/20 09:10 [facility] [id number]) Current Condition History of Current Condition Onset Date Jun 14 surgery, worsening back pain mar 18 Current Complaints L4-5, L5-S1 TLIF History of Current Condition 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 In Mar 2020 , she was squatted down and went to straighten a board under a euthenized horse as they were getting her onto the flat bed. Next day, was having excrutiating back pain into RLE to knee and topher tto the hospital on Mar 18. She went to see Dr. Ching Mar 25 and he took an Xray and on the took a MRI of back and returned ot see Dr. Ching who told her if she didn't have the back surgery, she would be paralyzed. Pt had problems w/ feet where seh would have to stop walking d/t feet bothering her in Feb 2019 when went back to work. 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 Pt wears new balance shoes at work typically and automotive shop foreman checked feet after pain started in feet. Feet started feeling better w/orthotics from automotive shop foreman but back started to irritate. She has not been wearing shoes since surgery d/t it feels like she is wearing something so tight and cutting off circulation and her feet feel ice cold. She avoid BLT for month after surgery like the MD said and then started 1.5 months after d/t concern of loosing ROM. THe heaviest thing she has picked up was a sewing box so far. Pt has been walking w/FWW but is starting to occ use cane for small distances or nothing in the house. She uses a power cart in stores. THe past 2 weeks is when she started to dec cane & FWW use except when seh leaves the house. Pt had a twisted bowel October 26, 2018 and had surgery and was hospitalized. Pt has too much pain after getting out of bed but feels okay getting off couch so has been sleeping on couch. She has vertigo that when seh lays on L side, it affects her. Pt cannot tolerate cold. Dgt concerned that pt has not returned back to work at [employer] and told her she would feel like she was 40 after the surgery. Future Testing and Treatments Planned Dgt wants to take pt to DO Treatment Goals Patient/Caregiver Goals return to work, walk better PT-OP-C Subjective Start: 09/21/20 14:55 Freq: Status: Active Protocol: Document 01/20/21 09:56 [facility] (Rec: 01/20/21 10:37 [facility] [id number]) OP-PT Subjective Patient Comments Patient Comments Pt reports walking around [facility] w/cart PT-OP-F Manual Assessment Start: 09/21/20 14:55 Freq: Status: Active Protocol: Document 09/23/20 08:19 [facility] (Rec: 09/23/20 09:10 [facility] [id number]) Manual Assessments Soft Tissue Assessment Soft Tissue Mobility Assessment significant scar immobility, pain w/QL & ES palpation Joint Mobility Assessment Joint Mobility Assessment slight inc iliac crest height on R in standing PT-OP-G Mobility & Gait Start: 09/21/20 14:55 Freq: Status: Active Protocol: Document 09/23/20 08:19 [facility] (Rec: 09/23/20 09:10 [facility] [id number]) OP Mobility Evaluation Bed Mobility Supine to and from Sit log roll technique used OP Gait Assessment Comments Gait Comments Fwd leaning onto FWW PT-OP-J Posture/Palpation/Skin Start: 09/21/20 14:55 Freq: Status: Active Protocol: Document 01/20/21 09:56 [facility] (Rec: 01/20/21 10:37 [facility] [id number]) Posture Evaluation [facility] Postural Classification System Lumbar Protective Mechanism Left AP 1 Lumbar Protective Mechanism Right AP 1 Lumbar Protective Mechanism Left PA 1 Lumbar Protective Mechanism Right PA 1 PT-OP-K Range of Motion Start: 09/21/20 14:55 Freq: Status: Active Protocol: Document 09/23/20 08:19 [facility] (Rec: 09/23/20 09:10 [facility] [id number]) Lumbar Spine Range of Motion Lumbar Spine Active Degrees Flexion 40 Rotation Left 49 Rotation Right 54 Lateral Flexion Left 4 Lateral Flexion Right 8 Comments unable to extend even to neutral PT-OP-L Special Tests Start: 09/21/20 14:55 Freq: Status: Active Protocol: Document 09/23/20 08:19 [facility] (Rec: 09/23/20 09:10 [facility] [id number]) Special Tests Lumbar Spine Special Tests Slump Test Results L positive PT-OP-M Strength Start: 09/21/20 14:55 Freq: Status: Active Protocol: Document 01/20/21 09:56 [facility] (Rec: 01/20/21 10:37 [facility] [id number]) Hip Strength Hip Manual Muscle Testing Right Flexion (L2) 4 Good External Rotation 4 Good Internal Rotation 4- Good- Comments abd not tested d/t pt cannot lay on L side Left Flexion (L2) 4+ Good+ Abduction 3+ Fair+ External Rotation 4+ Good+ Internal Rotation 4 Good Knee Strength Knee Manual Muscle Testing Right Flexion (S2) 5 Normal Extension (L3) 5 Normal Left Flexion (S2) 5 Normal Extension (L3) 5 Normal Ankle/Foot Strength Ankle and Foot Manual Muscle Testing Right Dorsiflexion (L4) 5 Normal Plantarflexion (S1) 5 Normal Left Dorsiflexion (L4) 5 Normal Plantarflexion (S1) 5 Normal Comments PF tested seated PT-OP-Q Treatments Start: 09/21/20 14:55 Freq: Status: Active Protocol: Document 01/20/21 09:56 [facility] (Rec: 01/20/21 10:37 [facility] [id number]) Cardio Equipment Recumbent Elliptical (Biodex) Duration (Minutes) 7 Resistance 8 Seat Position 5 Gym Equipment Shuttle Recovery Bilateral Squats Details pt could not do 112 today Resistance 100# Shuttle Recovery Platform Stable Reps/Time 15x2 Therapeutic Exercises Supine Exercises LTR Side bilateral Reps/Minutes 6 B Comments good slow pacing and response bridge Supine Exercise Name cues for glutes Side bilateral Reps/Minutes 10 Comments traction facilition to start Standing Exercises step ups Standing Exercise Name 8 in w/alt march Side bilateral Equipment Used single HR for balance Reps/Minutes 10 Comments cued upright posture and glut fac COG over ELENA sit to stand Standing Exercise Name no hands Side bilateral Reps/Minutes 10 Comments dang chair hip abd Side bilateral Equipment Used L1 Reps/Minutes 15 Comments focus on core and posture hip ext Side bilateral Equipment Used L1 Reps/Minutes 15 Comments focus on core and posture Manual Therapy Treatment Soft Tissue Mobilization Scar Body Location Posterior LB scar, paraspinals B, QL B Mobilization Type Rolling Intensity/Depth Moderate Body Position Sidelying PT-OP-R Modalities Start: 09/21/20 14:55 Freq: Status: Active Protocol: Document 01/20/21 09:56 [facility] (Rec: 01/20/21 10:37 [facility] [id number]) Hot Pack/Cold Pack Treatment Hot Pack Location lumbar Patient Position Hooklying Treatment Duration (minutes) 15 PT-OP-T Assessment and Plan Start: 09/21/20 14:55 Freq: Status: Active Protocol: Document 01/20/21 09:56 [facility] (Rec: 01/20/21 10:37 [facility] [id number]) Physical Therapy Assessment Goals lifting Short Term Goal (STG) Pt will be able to lift light weights with good mechanics. STG Duration achieved Care Home Goal (LTG) Pt will be able to lift 20 lbs safely and comfortably with good mechanics. 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 12/23-has not been cleared to return yet LTG Duration has not been cleared to return yet strength Short Term Goal (STG) Pt will be indep with HEP STG Duration achieved Building Equipment Operator Goal (LTG) Pt will score at least 4+/5 for all LE MMT and 3/5 w/LPM to show imrpoved stability and allow pt do typical functions and return to work. 12/23-improving LTG Duration improved overall gait Short Term Goal (STG) Pt will be able to walk with good gait mechanics w/o AD consistantly. 12/23-still amb w/cane outside of home and does limp STG Duration amb w/cane outside of home but not inside does had lat lean Care Home Goal (LTG) Pt will be able to walk stores and longer distances without need for AD or something to lean on d/t pain/back fatigue. 12/23-still uses cart or cane LTG Duration walks stores w/shopping cart Assessment Summary Assessment Pt given signficant edu to work on walking daily and increasing distance along w/ cont HEP. She still has weakness of hip and core and educated on need for HEP and walking. DC at this time d/t insurance limitations. Physical Therapy Plan Discharge Physical Therapy Discharge Comments insurance limits
== END 2021-02-10 07:38 | disposition home or self-care (01) ==
LOC: PHYS 09:45
PROVIDERS: Family Provider Family Medicine; PCP Family Medicine; Referring Provider Orthopaedic Surgery Orthopaedic Surgery of the Spine; Visit Provider Orthopaedic Surgery Orthopaedic Surgery of the Spine
DX: M48.061 Spinal stenosis, lumbar region without neurogenic claudication (principal); M43.14 Spondylolisthesis, thoracic region; M47.27 Other spondylosis with radiculopathy, lumbosacral region
CPT/HCPCS: 97010; 97110; 97112; 97140; 97162; 97530; 97535

== ENCOUNTER 2022-05-09 16:24 | Emergency (ER) | payer MEDICARE, SELFPAY ==
[2020-06-14 13:24] VITALS: BMI 39.0
[2022-05-09] VITALS (13 sets, daily range): BP systolic 129–173; BP diastolic 62–81; PULSE 63–79; RESP 12–20; TEMP 36.2; O2SAT 96–100; BMI 36.6
--- NOTE | 2022-05-09 16:50 | DI.RAD.S_ITS ---
PROCEDURE: XR CHEST 2V INDICATIONS: shortness of breath TECHNIQUE: 2 views of the chest were acquired. COMPARISON: [facility], CT, CT CHEST ABD PELVIS W CON, 03/12/2015, 10:09. [facility], CR, XR CHEST 1V, 05/17/2018, 8:41. [facility], CR, CHEST 1 VIEW, 03/04/2016, 19:05. FINDINGS: Surgical changes and devices: Left breast clips. ACDF. Lungs and pleura: No consolidation. Right upper lobe calcified granuloma. No pleural effusions or pneumothorax. Mediastinum: Mediastinal contours are normal. Heart size is normal. Bones and chest wall: No suspicious bony abnormalities. Soft tissues appear unremarkable. IMPRESSION: No acute cardiopulmonary abnormality. Dictated by: Joesph Marie M.D. on 05/09/2022 at 17:53 Approved by: Joseph Marie M.D. on 05/09/2022 at 17:55
[2022-05-09 17:28] LABS: Add Manual Diff / Slide Review NO; Basophils Absolute Auto 0 /uL (0-100); Basophils Percent Auto 0.4 % (0-2); Eosinophils Absolute Auto 100 /uL (0-450); Eosinophils Percent Auto 1.8 % (2-4); Hematocrit 34.7 % (36-46); Hemoglobin 11.8 g/dL (12.0-16.0); Lymphocytes Absolute Auto 1600 /uL (1100-4500); Lymphocytes Percent Auto 26.5 % (25-40); Mean Corpuscular HGB Conc 34.1 % (30-36); Mean Corpuscular Hemoglobin 30.2 PG (26-34); Mean Corpuscular Volume 88.6 fL (80-100); Monocytes Absolute Auto 500 /uL (0-900); Monocytes Percent Auto 7.9 % (3-14); Neutrophils Absolute Auto 3900 /uL (1500-7000); Neutrophils Percent Auto 63.4 % (50-75); Platelet Count 319 X10^3/uL (150-400); Red Blood Cell Count 3.92 X10^6/uL (4.0-5.2); Red Cell Distribution Width 13.9 % (11.6-14.8); White Blood Cell Count 6.1 X10^3/uL (4.5-11.0)
[2022-05-09 17:41] LABS: Lactate (Lactic Acid) 1.3 mmol/L (0.7-2.1)
[2022-05-09 17:42] LABS: Alanine Aminotransferase 49 IU/L (<35); Albumin 4.4 g/dL (3.5-5.0); Albumin Globulin Ratio 1.3 (1.0-2.8); Alkaline Phosphatase 117 U/L (38-126); Aspartate Aminotransferase 35 IU/L (14-36); BUN Creatinine Ratio 25.4 (6-22); Bilirubin Total 0.3 mg/dL (0.2-1.3); Blood Urea Nitrogen 15 mg/dL (7-17); Calcium 9.3 mg/dL (8.4-10.2); Carbon Dioxide 29 mmol/L (22-32); Chloride 104 mmol/L (98-107); Estimated Glomerular Filt Rate > 60 mL/min (>60); Globulin 3.5 g/dL (1.7-4.1); Glucose 99 mg/dL (80-110); HEMOLYSIS < 15 (0-50); Potassium 3.3 mmol/L (3.4-5.1); Sodium 139 mmol/L (137-145); Total Protein 7.9 g/dL (6.3-8.2)
--- NOTE | 2022-05-09 21:08 | PC.NURSE ---
Pt reports feeling tingling in left shoulder and down left arm. Sometimes little pains in my chest and neck too. Currently denies chest pain. Left shoulder is feeling tingly. Also has baseline neuropathy in bilateral legs due to hx of spina bifida and back surgeries. Head ache 4/10.
[2022-05-09 21:28] LABS: Creatine Kinase 153 U/L (30-135)
[2022-05-09 21:41] LABS: Troponin I < 0.012 ng/mL (0.01-0.034)
[2022-05-09 21:44] LABS: CKMB % Relative Index 2.5 % (1.5-5.0); Creatine Kinase MB 3.88 ng/mL (<2.37)
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
[2022-05-09] MEDS: ALBUTEROL/IPRATROPIUM 3 ML AMPUL INH (23:50)
[2022-05-10] VITALS: PULSE 72; RESP 17; O2SAT 97
[2022-05-10 00:01] VITALS: BP 157/71; PULSE 72; RESP 17; O2SAT 97
[2022-05-10 00:07] LABS: NT-proBNP (BNP-Adult 18+) 53 pg/mL (<125)
[2022-05-10] MEDS: ACETAMINOPHEN 325 MG TABLET 975 MG PO (00:08)
== END 2022-05-10 01:10 | disposition home or self-care (01) ==
PROVIDERS: Family Medicine Addiction Medicine; Emergency Provider Emergency Medicine; Family Provider Family Medicine; PCP Family Medicine
DX: R07.9 Chest pain, unspecified (principal); G54.2 Cervical root disorders, not elsewhere classified
CPT/HCPCS: 71046; 80053; 82550; 82553; 83605; 83880; 84484; 85025; 93005; 94640; 99284

== ENCOUNTER 2022-06-29 14:41 | Emergency (ER) | payer MEDICARE, SELFPAY ==
[2020-06-14 13:24] VITALS: BMI 39.0
[2022-06-29 14:47] VITALS: BP 130/69; PULSE 83; RESP 16; TEMP 36.5; O2SAT 98; BMI 39.2
--- NOTE | 2022-06-29 14:57 | DI.RAD.S_ITS ---
PROCEDURE: XR KNEE LT 3V INDICATIONS: injury/pain TECHNIQUE: 3 views of the knee were acquired. COMPARISON: None. FINDINGS: Bones: No fractures or dislocations. No suspicious bony lesions. Mild degenerative changes of the knee. Soft tissues: No joint effusion. No suspicious soft tissue calcifications. IMPRESSION: No acute osseous abnormality. If symptoms persist, follow-up radiographs and/or CT or MRI may be helpful for further evaluation. Dictated by: Julian Naranjo M.D. on 06/29/2022 at 15:21 Approved by: Julian Naranjo M.D. on 06/29/2022 at 15:24
--- NOTE | 2022-06-29 17:15 | ED_ITS ---
HPI - Extremity Injury (Lower) <Gadiel GarciaSHAHZAD - Last Filed: 06/29/22 17:48> General Chief Complaint: Extremity Injury, Lower Stated Complaint: knee pain Lt Time Seen by Provider: 06/29/22 17:15 Source: patient Mode of arrival: Wheelchair History of Present Illness HPI Narrative: 67-year-old female, with long history of back pain and surgeries, presents to the walk-in clinic for left knee swelling and pain that occurred approximately 3 weeks ago. Patient states that she was getting up to change the volume on the TV and when she was bending over, felt a pop in her left knee. Patient has been using a walker in the house to assist with balance. Patient saw her orthopedic surgeon, Dr. Ching on June 23, and she received x-rays of her back and given muscle relaxers. Patient states he has an appointment with Dr. Dove, orthopedic surgery next week for evaluation and treatment of the knee. Patient is concerned because of the amount of pain is at times intolerable. Related Data Home Medications Medication Instructions Recorded Confirmed atorvastatin 40 mg tablet 40 mg PO DAILY 10/27/18 06/14/20 exemestane 25 mg tablet 25 mg PO Q OTHER DAY Breast cancer 10/27/18 06/14/20 maintenance metoprolol succinate 50 mg 50 mg PO BEDTIME blood pressure 10/27/18 06/14/20 tablet,extended release 24 hr acetaminophen 325 mg capsule 650 mg PO BEDTIME 06/07/20 06/14/20 Previous Rx's Medication Instructions Recorded cyclobenzaprine 5 mg tablet 5 mg PO TID PRN muscle spasm #10 03/18/20 tabs docusate sodium 100 mg capsule 100 mg PO BID #60 caps 06/16/20 (DOK) oxycodone 5 mg tablet 5 mg PO Q4-6H PRN pain #50 tabs 06/16/20 oxycodone-acetaminophen 5 mg-325 1 tab PO Q6H PRN pain #10 tabs 06/29/22 mg tablet (Percocet) Allergies Allergy/AdvReac Type Severity Reaction Status Date / Time codeine [CODEINE] Allergy Mild Hives Verified 06/14/20 06:56 ketorolac [From Toradol] AdvReac Severe Vomiting Verified 06/14/20 06:56 latex AdvReac gagging Verified 06/14/20 06:56 from smell in latex poweder Review of Systems <SHAHZAD Reveles - Last Filed: 06/29/22 17:48> Review of Systems Narrative: Narrative: See HPI. GENERAL: Denies chills, fatigue, fever, sweats. RESPIRATORY: Denies dyspnea, cough, wheezing, sputum. CARDIOVASCULAR: Denies chest pain, palpitations, edema. GASTROINTESTINAL: Denies nausea, vomiting, abdominal pain, diarrhea, constipation. : Denies dysuria, frequency, incontinence, hematuria, urinary retention, flank pain. MSK: Denies weakness. Endorses left knee pain and swelling, and back pain. SKIN: Denies rash, skin lesions, or pruritis. NEUROLOGIC: Denies weakness, dizziness, headache, numbness, confusion. PSYCHIATRIC: No concerning psychosocial issues. Patient History <SHAHZAD Reveles - Last Filed: 06/29/22 17:48> Medical History Arthritis Breast cancer (2014) Depression Fusion of spine of cervical region (1996) Fusion of spine of cervical region (2001) Healthy adult HLD (hyperlipidemia) HTN (hypertension) Insomnia Obesity Small bowel obstruction (10/2018) Spondylolisthesis Vertigo Surgical History H/O: hysterectomy (1997) History of bunionectomy of both great toes History of exploratory laparotomy Hx of abdominal surgery (10/2018) Hx of repair of right rotator cuff Hx of tubal ligation Social History household members: family and children Smoking Status: Never smoker alcohol intake: never Smoking Status: Never smoker alcohol intake frequency: 0-2 drinks per day Substance Use Type: does not use Exam <SHAHZAD Reveles - Last Filed: 06/29/22 17:48> Narrative Exam Narrative: Exam Narrative: GENERAL: This is a well-nourished, well-developed patient, in no acute distress. HEAD: Atraumatic. Normocephalic. EYES: No scleral icterus, injection or drainage. CARDIOVASCULAR: Regular rate and rhythm without murmurs, peripheral pulses intact, cap refill <2 sec. RESPIRATORY: Breath sounds equal and clear bilaterally. No wheezes, rales, or rhonchi. No cough. No increased respiratory effort. No accessory muscle use. MSK: Moves all extremities. Normal range of motion, no clubbing or edema. Neurovascularly intact. Endorses left knee pain and swelling. NEURO: A&O x 3. SKIN: Warm, dry, no rashes or lesions noted. KNEE: There is swelling, but no bruising or asymmetry. There is tenderness to general palpation. There is medial joint line tenderness. There is no patellar tenderness. There is no popliteal fullness. Patella tracks normally. Range of motion is limited due to pain. Unable to test resistive strength or stability testing due to pain. The contralateral knee exam is unremarkable. Initial Vital Signs Initial Vital Signs: Vital Signs Temperature 97.7 F 06/29/22 14:47 Pulse Rate 83 06/29/22 14:47 Respiratory Rate 16 06/29/22 14:47 Blood Pressure 130/69 06/29/22 14:47 Pulse Oximetry 98 06/29/22 14:47 Oxygen Delivery Method 06/29/22 14:47 Reviewed <Deirdre Ayoub DO - Last Filed: 06/30/22 07:38> Initial Vital Signs Initial Vital Signs: Vital Signs Temperature 97.7 F 06/29/22 14:47 Pulse Rate 83 06/29/22 14:47 Respiratory Rate 16 06/29/22 14:47 Blood Pressure 130/69 06/29/22 14:47 Pulse Oximetry 98 06/29/22 14:47 Oxygen Delivery Method 06/29/22 14:47 Course <SHAHZAD Reveles - Last Filed: 06/29/22 17:48> Orders Ordered: ED Orders 06/29/22 14:57 XR knee LT 3V Stat Vital Signs Vital signs: Vital Signs - 8 hr 06/29/22 14:47 Temperature 97.7 F Pulse Rate 83 Respiratory Rate 16 Blood Pressure 130/69 Pulse Oximetry 98 Oxygen Delivery Method Room Air <DO Barbie Power Last Filed: 06/30/22 07:38> Orders Ordered: ED Orders 06/29/22 14:57 XR knee LT 3V Stat Vital Signs Vital signs: Vital Signs - 8 hr 06/29/22 14:47 Temperature 97.7 F Pulse Rate 83 Respiratory Rate 16 Blood Pressure 130/69 Pulse Oximetry 98 Oxygen Delivery Method Room Air MDM - Extremity Injury (Lower) <SHAHZAD Reveles Last Filed: 06/29/22 17:48> Differential Diagnosis Differential diagnosis: Likely other (Right knee pain and swelling) Imaging Data Extremity x-ray #1: Radiologist's Impression: [address] [address] XRay Report Signed Patient: José Miguel Tierney MR#: [id number] : 1955 Acct:[id number] Age/Sex: 67 / F Date of Service: 06/29/22 Loc: ED Accession Number: [id number] ?? Procedure: XR knee LT 3V Ordering Provider: Deirdre Ayoub D.O. PROCEDURE:? XR KNEE LT 3V ? INDICATIONS:? injury/pain ? TECHNIQUE:? 3 views of the knee were acquired.? ? COMPARISON:? None. ? FINDINGS:? ? Bones:? No fractures or dislocations.? No suspicious bony lesions.? Mild degenerative changes of the knee. ? Soft tissues:? No joint effusion.? No suspicious soft tissue calcifications.? ? ? IMPRESSION:? No acute osseous abnormality.? If symptoms persist, follow-up radiographs and/or CT or MRI may be helpful for further evaluation. ? ? Dictated by: Julian Naranjo M.D. on 06/29/2022 at 15:21 ? ? Approved by: Julian Naranjo M.D. on 06/29/2022 at 15:24? MDM Narrative Medical decision making narrative: 67-year-old female presents to the walk-in clinic with a three-week history of left knee pain and swelling. Unable to fully assess patient's pain due to intolerable pain with even the mildest of touches. Knee x-ray was negative for fracture. Recommended supportive care measures including rest, ice, elevation and Tylenol or ibuprofen as needed for mild discomfort. Will provide a short course of pain medication for breakthrough pain. Instructed patient to continue using her walker and to walk slower and your deliberately to prevent any further injuries. Recommended patient follow up with her orthopedic surgeon next week as previously scheduled. Patient and daughter were agreeable with course of action and verbalized understanding. Discharge Plan Departure Patient Disposition: Home Clinical Impression: Left knee pain Instructions: DI for Knee Pain Activity Restrictions/Additional Instructions: *You have been diagnosed with left knee pain and swelling. I am sorry to hear that you injured her left knee, but am happy to hear that you have an appointment with your orthopedic surgeon next week. As we discussed, as much as possible, and as tolerated, elevate the knee above your heart, apply ice, continue taking the Tylenol or ibuprofen as needed for mild discomfort and prescribed pain medication for breakthrough pain. Please continue to use your walker and walk slower and more deliberately to prevent further injury. For any worsening symptoms, please return to the emergency department. Otherwise, please follow-up with your orthopedic surgeon next week as previously scheduled. *What to do: *Please continue to take your regular medications as directed. [ ] New medication prescriptions sent to your pharmacy: [ ] [ x] New medication written as a paper prescription [ ] No new medications given *Please follow up with your primary care provider in 2-3 days, call for an appointment. Let them know you were seen in the Emergency Department and that we ask that you be seen in follow up. We will electronically transmit a record of today's note if your PCP is in our system *If you do not have a primary care provider please contact the [facility] Resource line at [phone]. They will ask some questions about your medical history and help get you set up with a doctor in the community. ? Return to ER if you should have any new, worsening or concerning symptoms, such as worsening pain, severe headache, confusion, chest pain, difficulty breathing, fever greater than 101 F, shaking chills, persistent vomiting to the point that you cannot drink fluids, or other new or worsening symptoms. Prescriptions: New oxycodone-acetaminophen [Percocet] 5-325 mg tablet 1 tab PO Q6H PRN (Reason: pain) Qty: 10 0RF No Action atorvastatin 40 mg Tablet 40 mg PO DAILY metoprolol succinate 50 mg Tablet Extended Release 24 Hr 50 mg PO BEDTIME Label Comments: pt not taking as of 1 year ago exemestane 25 mg Tablet 25 mg PO Q OTHER DAY cyclobenzaprine 5 mg tablet 5 mg PO TID PRN (Reason: muscle spasm) Qty: 10 0RF acetaminophen 325 mg Capsule 650 mg PO BEDTIME docusate sodium [DOK] 100 mg Capsule 100 mg PO BID Qty: 60 0RF oxycodone 5 mg tablet 5 mg PO Q4-6H PRN (Reason: pain) Qty: 50 0RF Rx Instructions: 1-2 tabs po every 4-6 hours as needed for severe pain. Exempt. post op pain. Referrals: Patria Aiken DO [Primary Care Provider] - Visit Report Forms: Patient Portal/API <Deirdre Ayoub DO - Last Filed: 06/30/22 07:38> Cosign ED Attending Alizeature Attestation: I was immediately available in the department for consultation. Documentation has been reviewed.
== END 2022-06-29 17:54 | disposition home or self-care (01) ==
PROVIDERS: Emergency Provider Registered Nurse; Family Provider Family Medicine; PCP Family Medicine
DX: M25.562 Pain in left knee (principal); X58.XXXA Exposure to other specified factors, initial encounter; Z79.899 Other long term (current) drug therapy
CPT/HCPCS: 73562; 99283

== ENCOUNTER → 2023-08-17 11:59 | Outpatient (CLI) | payer MEDICARE, SELFPAY ==
[2020-06-14 13:24] VITALS: BMI 39.0
--- NOTE | 2023-08-17 12:15 | DI.CT.S_ITS ---
PROCEDURE: CT LUMBAR SPINE WO CON INDICATIONS: Spinal stenosis, lumbar region without neurogenic claudicati TECHNIQUE: Noncontrast 3 mm thick sections acquired from the T12 level to the sacrum. Sagittal and coronal reformats were constructed. For radiation dose reduction, the following was used: automated exposure control. COMPARISON: None. FINDINGS: Image quality: Excellent. Bones: Grade 1 anterior spondylolisthesis L5-S1. No acute vertebral body compression fractures. No suspicious lytic or blastic bony lesions. No pars defects. L4-5 and L5-S1 discectomy and fusion with posterior peyton and screw instrumentation in good position. No evidence of hardware failure loosening. T12-L1: Unremarkable L1-L2: Disc space narrowing with disc bulge and mild central stenosis. Hypertrophic facet joints associated with moderate foraminal stenosis L2-L3: Disc space narrowing and circumferential disc bulge with hypertrophic facet joints results in mild central stenosis. Moderate bilateral foraminal stenosis L3-L4: Disc space narrowing and circumferential disc bulge with hypertrophic facet joints. Vacuum disc phenomena. Mild central osseous stenosis. Moderate bilateral foraminal stenosis L4-L5: Discectomy and fusion. Decompressive posterior laminotomy. No central stenosis. Moderate right and mild left foraminal stenosis L5-S1: Discectomy and fusion. No central stenosis. Decompressive laminotomy. Hypertrophic facet joints associated with severe right and mild left foraminal stenosis Soft tissues: No retroperitoneal masses or hematomas. Visualized aorta is normal in caliber. IMPRESSION: Multilevel degenerative disc disease and arthropathy results in varying degrees of central and foraminal stenosis including severe right foraminal stenosis L5-S1. Moderate bilateral foraminal stenosis L3-4 and L5-S1 Approved by: Apollo Sanz M.D. on 08/17/2023 at 18:10
== END ==
PROVIDERS: Family Provider Family Medicine; PCP Physician Assistant; Referring Provider Orthopaedic Surgery Orthopaedic Surgery of the Spine; Visit Provider Orthopaedic Surgery Orthopaedic Surgery of the Spine
DX: M48.061 Spinal stenosis, lumbar region without neurogenic claudication (principal); M48.07 Spinal stenosis, lumbosacral region; M47.816 Spondylosis without myelopathy or radiculopathy, lumbar region; M47.817 Spondylosis without myelopathy or radiculopathy, lumbosacral region; M51.36 Other intervertebral disc degeneration, lumbar region; Z98.1 Arthrodesis status
CPT/HCPCS: 72131

== ENCOUNTER → 2024-03-20 15:16 | Outpatient (CLI) | payer MEDICARE, MEDICAID, SELFPAY ==
[2020-06-14 13:24] VITALS: BMI 39.0
--- NOTE | 2024-03-20 15:17 | DI.MRI.S_ITS ---
PROCEDURE: MR LUMBAR SPINE WO CON INDICATIONS: Bilateral Lower extremity weakness s/p fusion TECHNIQUE: Noncontrast sagittal T1 spin echo and T2 fast echo, sagittal STIR, and T2 fast spin echo through the lumbar spine. In cases with scoliosis, additional coronal T2 fast spin echo may be performed. COMPARISON: [facility], MR, MR LUMBAR SPINE WO CON, 04/02/2020, 11:58. FINDINGS: Posterior decompression with posterior fusion instrumentation interbody spacer at L4-S1. Mild retrolisthesis of T12 on L1, L1 on L2. Grade 1 anterolisthesis L2 on L3, L3 on L4, and L5 on S1. Multilevel fibrovascular endplate change of the lumbar spine and the visualized lower thoracic spine. No acute fracture. Vertebral body heights are well maintained. Multilevel disc bulge and disc desiccation. Conus terminates at the level of T12-L1, and is unremarkable. Right neural foraminal stenosis: Mild at L1-2, L2-3, moderate at L3-4, mild at L4-5. Nondiagnostic at L5-S1. Left neural foraminal stenosis: Mild at T11-T12, T12-L1, L1-L2, moderate at L2-L3, mild at L3-L4, mild at L4-5, nondiagnostic at L5-S1. Axial images: T10-T11: No central canal stenosis. T11-T12: Posterior disc bulge. No central canal stenosis. T12-L1: Disc bulge. Mild bilateral facet arthropathy. No central canal stenosis. L1-2: Disc bulge. Mild right, moderate left facet arthropathy. No central canal stenosis. L2-3: Disc bulge. Moderate bilateral facet arthropathy. Mild central canal stenosis. L3-4: Left laminectomy. No central canal stenosis. L4-5: Posterior decompression. No central canal stenosis. L5-S1: Posterior decompression. No central canal stenosis. Visualized sacrum is intact. No abdominal aortic aneurysm. Bilateral small renal cysts. Multiple T2 hyperintense lesion in the spleen, with no dominant 1 measuring 2.5 cm, partially visualized. IMPRESSION: 1. Postprocedure changes as described above. 2. Multilevel degenerative changes of the lumbar spine, most pronounced at L2-3, where there is mild central canal stenosis and mild right and moderate left neural foraminal stenosis. 3. Nondiagnostic evaluation neural foraminal m stenosis at L5-S1 given susceptibility artifact. 4. Multiple T2 hyperintense lesion.s in the spleen, incompletely visualized Dictated by: Tana Smith M.D. on 03/20/2024 at 23:21 Approved by: Tana Smith M.D. on 03/20/2024 at 23:34
== END ==
LOC: MRI 15:17
PROVIDERS: Family Provider Family Medicine; PCP Physician Assistant; Referring Provider Physical Medicine & Rehabilitation; Visit Provider Physical Medicine & Rehabilitation
DX: M47.26 Other spondylosis with radiculopathy, lumbar region (principal); M48.061 Spinal stenosis, lumbar region without neurogenic claudication; D73.89 Other diseases of spleen; Z98.1 Arthrodesis status
CPT/HCPCS: 72148; 95886; 95910

== ENCOUNTER → 2024-03-20 | Outpatient (CLI) | payer MEDICARE, MEDICAID, SELFPAY ==
[2020-06-14 13:24] VITALS: BMI 39.0
== END ==
LOC: PHYS 13:21
PROVIDERS: Family Provider Family Medicine; PCP Physician Assistant; Referring Provider Physical Medicine & Rehabilitation; Visit Provider Physical Medicine & Rehabilitation
DX: M54.16 Radiculopathy, lumbar region (principal); Z98.1 Arthrodesis status
CPT/HCPCS: 95886; 95910